=== PATIENT | male | born 1955 | race Caucasian/White ===

== ENCOUNTER 2020-05-31 11:24 | Emergency (ER) | payer MEDICARE, OTHER, SELFPAY ==
[2020-05-31] VITALS (15 sets, daily range): BP systolic 185; BP diastolic 127; PULSE 60–79; RESP 7–24; TEMP 36.9; O2SAT 93–99
--- NOTE | ~2020-05-31 | XR_ITS ---
EXAMINATION: XR ribs RT 2V w CXR 2V EXAM DATE: 05/31/2020 12:43 INDICATION: right anterior, lower rib pain, fall . TECHNIQUE: Frontal projection of the upper right ribs, frontal projection of the lower right ribs, ob lique projection of the right ribs, frontal chest x-ray(s) for interpretation. There is no prior tabitha dy for comparison. FINDINGS: There are no displaced acute right rib fractures identified. There is no soft tissue abno rmality seen. Patient has diffuse idiopathic skeletal hyperostosis (DISH). Sternotomy wires are present without findings to suggest sternal dehiscence. The cardiomediastinal si lhouette is prominent but magnified on this AP technique. No confluent consolidation, pneumothorax or pleural effusion suspected. IMPRESSION: No displaced right rib fractures. Reviewed, dictated and finalized at location A. 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
--- NOTE | 2020-05-31 12:29 | ED.FALL ---
HPI - Fall General Chief Complaint: Fall Stated Complaint: fall Time Seen by Provider: 05/31/20 11:40 Source: patient Mode of arrival: EMS Limitations: no limitations History of Present Illness HPI Narrative: This is a 65-year-old male that presents to the emergency department after a fall today with right-sided rib pain. Reports he tripped over his grandchildren's toys. Reports falling forward and landing on a tote. Reports since he has had pain on the right side of his ribs. Pain is worse with palpation and deep breathing. Denies hitting his head, loss of consciousness, weakness, numbness, prodromal symptoms, or other injuries. Related Data Home Medications Medication Instructions Recorded Confirmed amlodipine 5 mg PO DAILY 05/31/20 aspirin 81 mg PO DAILY 05/31/20 atorvastatin 40 mg PO DAILY 05/31/20 empagliflozin [Jardiance] 25 mg PO DAILY 05/31/20 furosemide [Lasix] 40 mg PO DAILY 05/31/20 gabapentin 300 mg PO BID 05/31/20 hydralazine 50 mg PO BID 05/31/20 meloxicam 15 mg PO DAILY 05/31/20 metformin 500 mg PO BID 05/31/20 metoprolol tartrate 100 mg PO Q12H 05/31/20 olmesartan 40 mg PO DAILY 05/31/20 sertraline 50 mg PO DAILY 05/31/20 Allergies Allergy/AdvReac Type Severity Reaction Status Date / Time Penicillins Allergy Itching Verified 05/31/20 11:34 HYDROCODONE BIT Allergy Dizziness Uncoded 05/31/20 11:34 Review of Systems Review of Systems: Narrative: CONSTITUTIONAL: Denies fever EYES: Denies visual changes CARDIOVASCULAR: Reports chest wall pain RESPIRATORY: Denies dyspnea. GASTROINTESTINAL: Denies vomiting MUSCULOSKELETAL: Denies back pain, joint pain, or myalgia. NEUROLOGIC: Denies headache, numbness, or weakness. All systems reviewed & are unremarkable except as noted in HPI and below PMFSH Past Medical History Medical History (Updated 05/31/20 @ 14:08 by Roma Frederick PA-C) History of cerebrovascular accident History of coronary artery disease History of diabetes mellitus History of hyperlipidemia History of hypertension Exam Narrative: Exam Narrative: GENERAL: Well-appearing, obese, and in no acute distress. HEAD: Normocephalic, atraumatic. EYES: PERRLA and EOMI. ENT: Nares clear, no rhinorrhea or epistaxis. Mucous membranes moist. Oropharynx without tonsillar hypertrophy exudate or other lesions. Bilateral TMs pearly guallpa non-bulging NECK: Supple. No adenopathy or masses. No midline cervical spine tenderness CHEST: Clear to auscultation. No respiratory distress. No wheezes rales or rhonchi. Tender to palpation of right anterior/lateral ribs HEART: Regular rate and rhythm. No murmur heard. Normal peripheral pulses. ABDOMEN: Soft, nontender, nondistended, normal active bowel sounds. BACK: No midline thoracic or lumbar spine tenderness EXTREMITIES: Normal range of motion. No edema or obvious deformity. SKIN: Warm, dry, no rash. NEURO: No focal deficits. Alert and oriented x3. Cranial nerves II through XII grossly intact PSYCH: Normal mood and affect Course Vital Signs Vital signs: Vital Signs Temperature 98.4 F 05/31/20 11:28 Pulse Rate 75 05/31/20 11:28 Respiratory Rate 18 05/31/20 11:28 Blood Pressure 185/127 H 05/31/20 11:28 Pulse Oximetry 97 05/31/20 11:28 Temperature 98.4 F 05/31/20 11:28 Pulse Rate 75 05/31/20 11:28 Respiratory Rate 18 05/31/20 11:28 Blood Pressure 185/127 H 05/31/20 11:28 Pulse Oximetry 97 05/31/20 11:28 MDM - Fall MDM Narrative Medical decision making narrative: Patient presents to the emergency department for right-sided rib pain after a ground-level fall today. He is neurologically intact. Oxygen saturation is remained normal on room air. No midline spinal tenderness. Right side rib/chest x-rays without acute findings. Patient was instructed on care of rib contusion. He is to follow-up with his primary care doctor. He was given warnings to return to the ER Imaging Data Radiologist's impression:
== END 2020-05-31 14:20 | disposition home or self-care (01) ==
PROVIDERS: Emergency Provider Emergency Medicine; PCP Internal Medicine
DX: S20.211A Contusion of right front wall of thorax, initial encounter (principal); I25.10 Atherosclerotic heart disease of native coronary artery without angina pectoris; E11.9 Type 2 diabetes mellitus without complications; Z79.84 Long term (current) use of oral hypoglycemic drugs; E78.5 Hyperlipidemia, unspecified; I10 Essential (primary) hypertension; W18.09XA Striking against other object with subsequent fall, initial encounter
CPT/HCPCS: 71046; 71100; 99283

== ENCOUNTER 2021-02-14 06:34 | Inpatient (IN) | payer MEDICARE, SELFPAY ==
[2021-02-14] VITALS (15 sets, daily range): BP systolic 128–200; BP diastolic 52–128; PULSE 65–101; RESP 17–36; TEMP 36.4–37.3; O2SAT 92–99; BMI 55.3
--- NOTE | ~2021-02-14 | XR_ITS ---
EXAMINATION: XR chest 1V portable DATE: 02/18/2021 06:24 INDICATION: Congestive heart failure TECHNIQUE: frontal view of the chest was obtained. COMPARISON: Chest radiograph dated 02/14/2021 FINDINGS: Cardiomegaly. No focal airspace opacities, pulmonary edema, pleural effusion or pneumothorax. Median sternotomy wires and mediastinal surgical clips are seen, likely from prior coronary artery bypass gr afting. IMPRESSION: 1. Cardiomegaly. No acute cardiopulmonary disease. Reviewed, dictated and finalized at location A.
--- NOTE | ~2021-02-14 | US_ITS ---
EXAMINATION: US renal BI DATE: 02/16/2021 14:16 INDICATION: Elevated creatinine TECHNIQUE: Multiple ultrasound grayscale images of the kidneys were obtained. COMPARISON: None. FINDINGS: The right kidney measures 10.2 x 5.6 x 6.9 cm. The left kidney measures 8.5 x 5.6 x 6.2 cm. The kidne ys demonstrate normal echogenicity. There is no hydronephrosis in either kidney. No stones identifie d. The bladder is normal. IMPRESSION: 1. Normal kidneys without hydronephrosis. Reviewed, dictated and finalized at location A.
--- NOTE | ~2021-02-14 | US_ITS ---
EXAMINATION: US venous doppler LE EXAM DATE: 02/14/2021 15:58 INDICATION: Leg edema. TECHNIQUE: Multiple grayscale, color flow and Doppler images of the lower extremity deep venous syste ms bilaterally were obtained and reviewed. There is no prior study for comparison. FINDINGS: Right side: The right common femoral, femoral and profunda veins demonstrate normal color flow, respi ratory variation, augmentation and compressibility. Compressibility, color flow confirmed within the right popliteal, posterior tibial, peroneal, and greater saphenous veins. Left side: The left common femoral, femoral and profunda veins demonstrate normal color flow, respira tory variation, augmentation and compressibility. Compressibility, color flow confirmed within the l eft popliteal, posterior tibial, peroneal, and greater saphenous veins. IMPRESSION: No lower extremity deep venous thrombosis bilaterally. Reviewed, dictated and finalized at location B.
--- NOTE | ~2021-02-14 | US_ITS ---
EXAMINATION: US arterial ankle brachial ind DATE: 02/23/2021 15:42 INDICATION: Right lower limb cellulitis. TECHNIQUE: Segmental pressures and plethysmographic and Doppler waveforms of the brachial and lower e xtremity arteries were obtained. COMPARISON: None. FINDINGS: Right and left brachial artery pressures of 114 mm Hg and 123 mm Hg, respectively, are concordant (no rmal difference <= 30 mmHg). The right ankle-brachial index (NATHALIE) is 0.93 (normal >= 0.9-1.0). The right great toe-brachial index (TBI) is 1.14 (normal >= 0.65). Arterial Doppler waveforms are biphasic in dorsalis pedis are not wel l detected in posterior tibial artery. The left NATHALIE could not be measured due to inability to cuff occlude the arteries. The left TBI is 1.5 6. Arterial Doppler waveforms are biphasic at the ankle. IMPRESSION: 1. Mildly decreased right NATHALIE, nondiagnostic left NATHALIE, and normal bilateral TBIs, consistent with art erial occlusive disease. Reviewed, dictated and finalized at location A. IMPRESSION: 1. Mildly decreased right NATHALIE, nondiagnostic left NAHTALIE, and normal bilateral TBI s, consistent with arterial occlusive disease.
--- NOTE | ~2021-02-14 | XR_ITS ---
XR chest 2V 02/14/2021 07:20 Indication: Dyspnea Procedure: AP and lateral views of the chest Comparison: 05/31/2020 Findings: Status post median sternotomy for CABG. Cardiomegaly with mild interstitial edema. Cannot e xclude superimposed pneumonia. No significant effusion. No pneumothorax. Impression: 1: Cardiomegaly with mild diffuse interstitial infiltrates, likely edema. Pneumonia less favored. Reviewed, dictated and finalized at location A. Impression: 1: Cardiomegaly with mild diffuse interstitial infiltrates, likely edema. Pneum onia less favored.
--- NOTE | 2021-02-14 06:40 | ECG_ITS ---
Measurements Intervals [place] Rate: 98 P: CT: 0 QRS: -38 QRSD: 100 T: 81 QT: 340 QTc: 436 Interpretive Statements ATRIAL FIBRILLATION LEFT AXIS DEVIATION INCOMPLETE RIGHT BUNDLE BRANCH BLOCK CANNOT RULE OUT SEPTAL INFARCT, AGE INDETERMINATE BORDERLINE ST-T WAVE ABNORMALITY- HIGH LATERAL LEADS BASELINE ARTIFACT- I, II, III, AVR, AVL, AVF, V1, V5-V6 ATYPICAL ECG Electronically Signed On 02-14-2021 8:07:29 CDT by Osmin Clark D.O.
[2021-02-14] MEDS: NITROGLYCERIN SL 0.4 MG TABLET SUBLINGUAL (06:54)
--- NOTE | 2021-02-14 06:54 | PC.NURSE ---
0654 administered 1 nitro sl bp 249/91 0659 administered 1 nitro sl bp 197/74 0704 administered 1 nitro sl
[2021-02-14 06:55] LABS: Basophils Percent Auto 0.2 % (0.2-1.2); Hematocrit 48.7 % (42.0-52.0); Immature Granulocyte Absolute 0.12 K/mm3 (0.00-0.031); Immature Granulocyte Percent A 0.6 % (0-0.5); Lymphocytes Absolute Auto 0.75 K/mm3 (0.9-3.2); Mean Corpuscular HGB Conc 30.8 g/dl (32-36); Mean Corpuscular Hemoglobin 26.9 pg (26-34); Mean Corpuscular Volume 87.3 fl (80-100); Mean Platelet Volume 11.1 fl (7.4-10.4); Monocytes Absolute Auto 0.3 K/mm3 (0.1-0.6); Monocytes Percent Auto 1.7 % (2.6-8.5); Neutrophils Absolute Auto 17.6 K/mm3 (1.3-6.7); Neutrophils Percent Auto 93.5 % (45.5-73.1); Platelet Count Result 151 k/mm3 (150-375); Red Blood Count 5.58 M/mm3 (4.6-6.20); Red Cell Distribution Width 17.1 % (11.5-14.5); White Blood Count 18.8 K/mm3 (4.5-10.0)
[2021-02-14 07:03] LABS: Anion Gap 9 mmol/L (8-16); Blood Urea Nitrogen 24 mg/dL (9-20); Carbon Dioxide 27 mmol/L (22-30); Chloride 103 mmol/L (98-107); Estimated Glomerular Filt Rate 43; Glucose 80 mg/dL (65-110); INR 1.2; Potassium 3.6 mmol/L (3.4-5.0); Prothrombin Time 14.7 Seconds (11.1-14.7); Sodium 139 mmol/L (137-145)
[2021-02-14 07:04] LABS: Partial Thromboplastin Time 38.7 SECONDS (22.3-36.8)
[2021-02-14 07:20] LABS: NT Pro B Type Natriuretic Pept 2010 pg/mL (5-100); Troponin I 0.051 ng/mL (0.000-0.034)
--- NOTE | 2021-02-14 07:27 | ED.SOB ---
HPI - SOB/Dyspnea General Chief Complaint: Shortness of Breath/Dyspnea Stated Complaint: DIFFICULTY BREATHING Time Seen by Provider: 02/14/21 07:15 History of Present Illness HPI Narrative: Patient is 65 years old white male with come at 4:00 AM with chest pain and severe shortness of breath. Pain was 10 out of 10, patient received nitroglycerin in the emergency room, currently 0 out of 10. 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 Patient morbidly obese, patient is fully vaccinated for COVID-19. Patient denying any fever, chills, nausea, vomiting. Patient had recent diagnosis of A. fib 1 week ago, started on Xarelto. Currently patient on aspirin. Related Data Home Medications Medication Instructions Recorded Confirmed amlodipine 5 mg PO DAILY 05/31/20 aspirin 81 mg PO DAILY 05/31/20 atorvastatin 40 mg PO DAILY 05/31/20 empagliflozin [Jardiance] 25 mg PO DAILY 05/31/20 furosemide [Lasix] 40 mg PO DAILY 05/31/20 gabapentin 300 mg PO BID 05/31/20 hydralazine 50 mg PO BID 05/31/20 meloxicam 15 mg PO DAILY 05/31/20 metformin 500 mg PO BID 05/31/20 metoprolol tartrate 100 mg PO Q12H 05/31/20 olmesartan 40 mg PO DAILY 05/31/20 sertraline 50 mg PO DAILY 05/31/20 amiodarone BID 02/14/21 potassium mg DAILY 02/14/21 rivaroxaban [Xarelto] 2.5 mg PO BID 02/14/21 Allergies Allergy/AdvReac Type Severity Reaction Status Date / Time Penicillins Allergy Itching Verified 02/14/21 07:45 hydrocodone AdvReac Dizziness Verified 02/14/21 09:12 Review of Systems Review of Systems: Narrative: CONSTITUTIONAL: Denies fever, chills, or sweats. EYES: Denies visual changes, redness, or discharge. ENT: Denies rhinorrhea, congestion, sore throat, or otalgia. CARDIOVASCULAR: Denies chest pain, palpitations, or edema. RESPIRATORY: Denies cough or dyspnea. GASTROINTESTINAL: Denies abdominal pain, nausea, vomiting, or diarrhea. GENITOURINARY: Denies dysuria or hematuria. SKIN: Denies rash or itching. MUSCULOSKELETAL: Denies back pain, joint pain, or myalgia. NEUROLOGIC: Denies headache, numbness, or weakness. PSYCHIATRIC: Denies anxiety or depression. PMFSH Past Medical History Medical History History of cerebrovascular accident History of coronary artery disease History of diabetes mellitus History of hyperlipidemia History of hypertension Social History Social History Gender identity (if verbalized by the patient): Male Exam Narrative: Exam Narrative: General appearance: Well-developed, well-nourished Skin: 3+ edema bilaterally, weeping blisters, right lower extremity looks more red, diffusely tender, and warm to touch more than the left 1. Can't exclude cellulitis at this time, versus chronic stasis dermatitis Head: Normocephalic, nontraumatic Eyes: Clear conjunctiva ENT: Oropharynx normal, ears normal, nose normal Neck: Supple, nontender Chest and respiratory: Airway patent, no respiratory distress, no accessory muscle use, wet rales at the bases bilaterally Heart: Regular rate/rhythm Abdomen: Soft, nontender, no organomegaly, quiet bowel sounds Vascular: Normal peripheral pulses, normal capillary refill. Musculoskeletal: Normal range of motion, nontender back Neurologic: Alert and oriented ?3, SPEECH SCIENTIST is normal as tested, no gross motor deficit Course Course Emergency Course: Stable, improving Consultations Consultation #1: Dr. Adams, hospitalist, Date: 02/14/21 Time: 07:58 Consultation #2: Rafael Vang
[2021-02-14] MEDS: FUROSEMIDE INJ 100 MG/10 ML VIAL 80 MG IV PUSH (07:36)
[2021-02-14] MEDS: NITROGLYCERIN OINTMENT 1 INCH DOSE TRANSDERM ×4 (07:39→23:44)
[2021-02-14 12:27] LABS: Troponin I 0.211 ng/mL (0.000-0.034)
--- NOTE | 2021-02-14 14:00 | PM.IMHP ---
H&P: HPI History of Present Illness Date/Time: 02/14/21 14:00 Chief Complaint: Shortness of breath. Narrative: This is a pleasant, chronically ill 65-year-old male with history of stroke, diabetes, hypertension, hyperlipidemia, coronary artery disease, sleep apnea, and paroxysmal atrial fibrillation who presented to the emergency department earlier today via EMS from home for evaluation of shortness of breath. He was diagnosed with atrial fibrillation about 1 week ago and was started on Xarelto with plans for an outpatient evaluation. He has been doing okay since that time however was getting up to go the bathroom around 04:00 when he developed severe, sudden shortness of breath as well as midsternal chest tightness and sweats. He was hypertensive and hypoxic on EMS arrival with a blood pressure as high as 238/125 and an SpO2 of 88% room air. EMS gave him a nebulizer as he was wheezing and he felt may be a bit better at that time. Chest x-ray today showed mild diffuse interstitial infiltrates felt to be secondary to pulmonary edema and he has pretty significant lower extremity edema with weeping though he states that is chronic and he has been diagnosed with lymphedema. His right leg looked quite a bit more red when compared to the left and was warm and he admits that is much more red and a bit tender when compared to baseline. He is not currently having any chest pain and shortness of breath is a bit better. The only complaint he has at this time is of discomfort of being on the stretcher. He denies fever, sinus congestion, rhinorrhea, otalgia, odynophagia, cough, pleuritic pain, palpitations, nausea, and vomiting. Review of Systems Review of Systems: Narrative: Twelve systems were reviewed with pertinent positives and negatives as per HPI. He is on insulin pump with a recent hemoglobin A1c of around 6.9%. He is fully vaccinated for COVID. No exposure to those positive for COVID-19 to his knowledge. He has right upper extremity weakness and some dexterity issues in his right hand from a previous stroke as well as balance issues. No recent falls. He ambulates with a cane. Except as documented, all other systems were reviewed and are negative. [facility] Past Medical History Medical History Cerebrovascular accident 2012.Residual right upper extremity weakness and balance issues. Coronary artery disease Status post CABG. Diabetic peripheral neuropathy Hyperlipidemia Hypertension Insulin dependent type 2 diabetes mellitus Lymphedema Morbid obesity Obstructive sleep apnea on CPAP Paroxysmal atrial fibrillation Surgical History Surgical History History of five vessel coronary artery bypass (2001) History of laparoscopic adjustable gastric banding (2009) History of repair of left rotator cuff History of total left knee replacement Family History Family History Father Acute myocardial infarction Congestive heart failure Diabetes mellitus Hypertension Grandparent Acute myocardial infarction Congestive heart failure Diabetes mellitus Hypertension Social History Social History (Updated 02/15/21 @ 19:02 by Savannah Wilson PA-C) Social History: Surrogate decision maker: Ariela Perkins, . Code status: Full code. Smoking status: Never smoker Second hand tobacco smoke exposure: No Alcohol intake: never Substance use: never Additional living arrangements comments: Resides in [place] with his . Ambulates with a cane. Additional occupation/education comments: Retired [employer]. Meds Home Medications and Allergies Home Medications Medication Instructions Recorded Confirmed Type amlodipine 5 mg PO DAILY 05/31/20 02/14/21 History aspirin 81 mg PO DAILY 05/31/20 02/14/21 History atorvastatin 40 mg PO DAILY 05/31/20 02/14/21 Histo
[2021-02-14] MEDS: ONDANSETRON INJ 4 MG/2 ML VIAL IV PUSH (14:05)
--- NOTE | 2021-02-14 16:34 | PC.NURSE ---
phlebotomy notified that ed staff unable to obtain labs
[2021-02-14 17:25] LABS: Alanine Aminotransferase 31 U/L (4-50); Albumin Level 3.2 g/dL (3.5-5.1); Alkaline Phosphatase 90 U/L (38-126); Aspartate Amino Transferase 47 U/L (17-59); Bilirubin,Total 1.5 mg/dL (0.2-1.3)
[2021-02-14 17:32] LABS: NT Pro B Type Natriuretic Pept 9420 pg/mL (5-100); Troponin I 0.295 ng/mL (0.000-0.034)
--- NOTE | 2021-02-14 19:16 | PC.NURSE ---
1909 Report received from SPENCER Naylor.
--- NOTE | 2021-02-14 19:57 | ADMGEN ---
This patient, Carlton Perkins, was admitted to IMU Room 209-01 on 02/14/21 at 1945. Patient/family oriented to hospital policies and general routines including ID bracelet, bed and alarms, visiting hours, pain management, procedures, bathroom and other care routines, personal items, smoking policy, room service/diet, and visiting hours. Information on how to activate the Rapid Response Team has been discussed. Patient/Family are encouraged to report perceived risks to care and to ask questions if they do not understand what they are told or what they should do.
[2021-02-14 20:20] LABS: Glucose Point of Care 132 mg/dl (65-105)
[2021-02-14] MEDS: FUROSEMIDE INJ 40 MG/4 ML VIAL IV PUSH (22:16)
[2021-02-15] VITALS (17 sets, daily range): BP systolic 146–176; BP diastolic 61–95; PULSE 65–99; RESP 18–26; TEMP 36.6–37.6; O2SAT 92–99
--- NOTE | 2021-02-15 00:59 | ECHO_ITS ---
Patient Info Name: Carlton Perkins Age: 65 years : 1955 Gender: Male Ht: 71 in Wt: 396 lbs BSA: 3.10 m2 HR: 98 bpm BP: 161 / 80 mmHg Heart Rhythm: Atrial Flutter Technical Quality: Poor Exam Date: 02/15/2021 2:20 PM Exam Location: [facility] Pulmonary Exam Room: 209 Patient Status: Inpatient Admit Date: 02/14/2021 Staff Ordering Physician: Savannah Wilson PA-C Cushion Cover Inspector: Sammie Gant RDCS Attending Provider: Griffin Adams MD Referring Physician: Katie BURT; Exam Type: CA echo dop color flow w con Study Info Indications - pulmonary congestion afib htn cad cabg Complete two-dimensional, color flow and Doppler transthoracic echocardiogram is performed with contrast to opacify the left ventricle and to improve the deliniation of the left ventricle endocardial borders. Contrast/Agitated Saline Contrast/Ag. Saline: Definity Amount: 2.00 ml Existing IV Access: Yes IV Access Condition: patent with no signs of infiltration Reason for Poor Study: patient body habitus Summary 1. Grossly normal left ventricular chamber size, and systolic function with no regional wall motion abnormalities with an estimated ejection fraction of 60-65%. Diastolic function indeterminant. Moderate LVH. 2. Left atrial chamber dimension is mildly enlarged. 3. No significant valve disease. 4. Atrial flutter. 5. Technically difficult study, even with definity echo contrast. Left Ventricle Left ventricular chamber dimension is moderately enlarged. Left ventricular systolic function is normal, estimated at 60-65%. There is mildly increased left ventricular wall thickness. Left ventricular septal wall motion is normal. The left ventricular diastolic function is indeterminate. Grossly normal left ventricular chamber size, and systolic function with no regional wall motion abnormalities with an estimated ejection fraction of 60-65%. Diastolic function indeterminant. Moderate LVH. Right Ventricle Right ventricular chamber dimension is normal. Right ventricular systolic function is normal. Left Atria Left atrial chamber dimension is mildly enlarged. Right Atria Right atrial chamber dimension is normal. Aortic Valve The aortic valve is trileaflet. There is moderate aortic valve sclerosis. There is no aortic valve stenosis. There is no aortic valve regurgitation. Pulmonic Valve The pulmonic valve is normal. There is no pulmonic valve stenosis. There is no pulmonic regurgitation. Mitral Valve The mitral valve has normal leaflets. There is no mitral valve stenosis. There is no mitral valve regurgitation. Tricuspid Valve The tricuspid valve leaflets are normal. There is no significant tricuspid valve stenosis. There is trace tricuspid valve regurgitation. No pulmonary hypertension, estimated pulmonary arterial systolic pressure is Empty. Pericardium/Pleural The pericardium appears normal. There is no pericardial effusion. Inferior Vena Cava Normal inferior vena cava with >50% collapse upon inspiration consistent with Empty right atrial pressure, Empty. Aorta The aortic root size at the sinus of Valsalva is normal. The prox ascending aorta size is normal. Left Ventricular Outflow Tract Name Value Normal
--- NOTE | 2021-02-15 04:54 | ECG_ITS ---
Measurements Intervals [place] Rate: 98 P: [place]: 0 QRS: -34 QRSD: 125 T: 92 QT: 378 QTc: 483 Interpretive Statements ECTOPIC ATRIAL RHYTHM ATRIAL COUPLET LEFT AXIS DEVIATION INCOMPLETE RIGHT BUNDLE BRANCH BLOCK CONSIDER ANTERIOR INFARCT, AGE INDETERMINATE BORDERLINE ST-T WAVE ABNORMALITY- HIGH LATERAL LEADS BASELINE ARTIFACT- I, II, III, AVR, AVL, AVF, V3 ABNORMAL ECG Electronically Signed On 02-15-2021 6:32:16 CDT by Osmin Clark D.O.
[2021-02-15 05:10] LABS: Hematocrit 40.7 % (42.0-52.0); Hemoglobin 12.6 g/dL (14.0-18.0); Immature Platelet Fraction Pct 5.9 % (0.9-11.2); Mean Corpuscular Volume 87.3 fl (80-100); Mean Platelet Volume 11.6 fl (7.4-10.4); Platelet Count Result 105 k/mm3 (150-375); Red Blood Count 4.66 M/mm3 (4.6-6.20); Red Cell Distribution Width 17.4 % (11.5-14.5)
[2021-02-15 05:20] LABS: Alanine Aminotransferase 28 U/L (4-50); Albumin Level 3.1 g/dL (3.5-5.1); Alkaline Phosphatase 98 U/L (38-126); Anion Gap 5 mmol/L (8-16); Aspartate Amino Transferase 36 U/L (17-59); Bilirubin,Total 1.5 mg/dL (0.2-1.3); Blood Urea Nitrogen 30 mg/dL (9-20); Carbon Dioxide 27 mmol/L (22-30); Chloride 101 mmol/L (98-107); Estimated CRCL calculation 60 ml/min; Estimated Glomerular Filt Rate 38; Glucose 112 mg/dL (65-110); Magnesium 1.7 mg/dL (1.6-2.3); Potassium 3.8 mmol/L (3.4-5.0); Sodium 133 mmol/L (137-145)
[2021-02-15 05:55] LABS: Hemoglobin A1C 6.6 % (<5.7)
[2021-02-15] MEDS: ATORVASTATIN 40 MG TABLET PO (08:20)
[2021-02-15] MEDS: amLODIPine BESYLATE 5 MG TABLET PO (08:20)
[2021-02-15] MEDS: CHOLECALCIFEROL 1,000 UNITS TABLET 2000 UNITS PO (08:20)
[2021-02-15] MEDS: METOPROLOL TARTRATE 50 MG TAB 100 MG PO ×2 (08:20→21:30)
[2021-02-15] MEDS: ASPIRIN 81 MG ENTERIC TABLET PO (08:20)
[2021-02-15] MEDS: MELOXICAM 7.5 MG TABLET 15 MG PO (08:20)
[2021-02-15] MEDS: FUROSEMIDE INJ 40 MG/4 ML VIAL IV PUSH ×2 (08:20→21:30)
[2021-02-15] MEDS: GABAPENTIN 300 MG CAPSULE PO ×2 (08:21→18:25)
[2021-02-15] MEDS: SERTRALINE HCL 50 MG TABLET PO (08:21)
[2021-02-15] MEDS: AMIODARONE HCL 200 MG TABLET PO ×2 (08:21→18:24)
[2021-02-15] MEDS: PANTOPRAZOLE 40 MG TABLET PO ×2 (08:21→18:25)
[2021-02-15] MEDS: hydrALAZINE HCL 50 MG TABLET PO ×2 (08:21→18:24)
[2021-02-15 09:10] LABS: Glucose Point of Care 123 mg/dl (65-105)
[2021-02-15 13:23] LABS: Glucose Point of Care 279 mg/dl (65-105)
--- NOTE | 2021-02-15 14:32 | PM.IMPN ---
Progress Note: A&P Assessment and Plan (1) Pulmonary congestion: Code(s): R09.89 - Other specified symptoms and signs involving the circulatory and respiratory systems Status: Acute Assessment and Plan: improving (2) Atrial fibrillation: Qualifiers: Atrial fibrillation type: unspecified Qualified Code(s): I48.91 - Unspecified atrial fibrillation Code(s): I48.91 - Unspecified atrial fibrillation Status: Acute (3) Non-STEMI (non-ST elevated myocardial infarction): Code(s): I21.4 - Non-ST elevation (NSTEMI) myocardial infarction Status: Acute Assessment and Plan: cardiology following (4) Cellulitis of right leg: Code(s): L03.115 - Cellulitis of right lower limb Status: Acute Assessment and Plan: continue IV antibiotics continue wound care (5) Morbid obesity: Code(s): E66.01 - Morbid (severe) obesity due to excess calories Status: Acute Assessment and Plan: greater than 5 minutes dietary counseling given to patient today (6) Lymphedema: Code(s): I89.0 - Lymphedema, not elsewhere classified Status: Acute Assessment and Plan: continue rapid (7) Obstructive sleep apnea on CPAP: Code(s): G47.33 - Obstructive sleep apnea (adult) (pediatric); Z99.89 - Dependence on other enabling machines and devices Status: Acute Assessment and Plan: will need outpatient follow-up study (8) Hypertension: Code(s): I10 - Essential (primary) hypertension Status: Acute Assessment and Plan: adjusting BP meds (9) Hyperlipidemia: Code(s): E78.5 - Hyperlipidemia, unspecified Status: Acute Assessment and Plan: continue statin (10) Insulin dependent type 2 diabetes mellitus: Code(s): E11.9 - Type 2 diabetes mellitus without complications; Z79.4 - alf (current) use of insulin Status: Acute Assessment and Plan: patient with insulin pump will use her own machine during hospitalization (11) Coronary artery disease: Code(s): I25.10 - Atherosclerotic heart disease of [place] coronary artery without angina pectoris Status: Acute Assessment and Plan: NSTEMI cardiology has been consulted Subjective Date/time seen: 02/15/21 14:32 patient doing okay appears to have limited insight into his overall health. Previous history of lap banding although remains morbidly obese. He is diabetic and has insulin pump lumbar last hemoglobin A1c was 6.6. His right lower extremity continues to have pain and swelling and despite patient's poor overall health, he iis surprised that he has had a NSTEMI. Exam Narrative: GEN: NAD, AAOx3, cooperative, morbid obesity HEENT: NCAT, MMM, EOMI Neck: no JVD Heart: S1S2 IRR Lungs: CTA B/l Abd: soft, NT, ND, bowel sounds normoactive Ext: moves all, no cyanosis, no clubbing, right lower extremity tender to palpation erythematous and edematous Neuro: normal cognition, moves all extremities equally, gait not assessed Psych: mood reduced, affect congruent Objective Data Vital Signs Vital Signs: Vital Signs - 24 hr 02/14/21 14:57 02/14/21 17:45 02/14/21 18:51 Temperature Pulse Rate 81 65 82 Respiratory Rate 17 20 Blood Pressure 132/52 L 128/97 H Pulse Oximetry 96 92 97 02/14/21 18:54 02/14/21 19:45 02/14/21 20:00 Temperature 97.8 F 97.8 F Pulse Rate 84 92 Respiratory Rate 20 Blood Pressure 146/87 H 152/72 H Pulse Oximetry 98 02/14/21 22:00 02/14/21 23:55 02/15/21 00:00 Temperature 97.6 F Pulse Rate 81 84 98 Respiratory Rate 20 20 Blood Pressure 147/83 H Pulse Oximetry 92 92 02/15/21 02:00 02/15/21 04:00 02/15/21 04:53 Temperature 99.7 F H Pulse Rate 95 89 98 Respiratory Rate 20 Blood Pressure 161/80 H Pulse Oximetry 94 02/15/21 06:00 02/15/21 08:00 02/15/21 08:20 Temperature 98.9 F Pulse Rate 89 99 98 Respiratory Rate 20 [place]
[2021-02-15] MEDS: PERFLUTREN LIPID MICROSPHERES 1.5 ML VIAL DILUTED TO 10 ML TOTAL VOLUME IV PUSH (15:00)
--- NOTE | 2021-02-15 15:55 | PM.CNCAR ---
Assessment and Plan Assessment and plan (1) Elevated troponin: Code(s): R77.8 - Other specified abnormalities of plasma proteins Status: Acute Assessment and Plan: Patient has developed elevated troponins which are of concern for ACS. However, my feeling is he has had gradual worsening of CHF and this is not an ACS event. There are no ischemic EKG changes. I think the troponin spill was related to his hypertension, tachycardia, and hypoxemia. (2) Acute on chronic diastolic CHF (congestive heart failure): Code(s): I50.33 - Acute on chronic diastolic (congestive) heart failure Status: Acute Assessment and Plan: Patient has severe volume overload and moderate CHF on his chest x-ray. Recommend we treat his blood pressure and continue IV diuretics. Echo pending 1800 cc fluid restriction (3) Atrial fibrillation: Qualifiers: Atrial fibrillation type: unspecified Qualified Code(s): I48.91 - Unspecified atrial fibrillation Code(s): I48.91 - Unspecified atrial fibrillation Status: Acute Assessment and Plan: Wean set onset of atrial fib /flutter, rate reasonable in the 90s. Anticoagulated with Xarelto. Eventual cardioversion planned. However he has only been on Xarelto and amiodarone for 1 week and will be preferable for him to be on it longer prior to a cardioversion. If he is not doing well we can consider a MARTIN guided cardioversion prior to discharge. Otherwise stick with the plan made by Dr. Wallace, to re-evaluate and plan a cardioversion in the future. (4) Hypertension: Code(s): I10 - Essential (primary) hypertension Status: Acute Assessment and Plan: Not at goal. Already taking metoprolol, amlodipine, and hydralazine at home. Also taking olmesartan, furosemide 40 mg qd (not on this home med list) Resume olmesartan 40 mg qd Consider adding spironolactone and following K+. (5) Lymphedema: Code(s): I89.0 - Lymphedema, not elsewhere classified Status: Acute Assessment and Plan: Chronic lymphedema, worsened recently. (6) Cellulitis of right leg: Code(s): L03.115 - Cellulitis of right lower limb Status: Acute Assessment and Plan: Woke up with shaking and chills, has a very high white count. Blood cultures are pending. Cellulitis is being treated. (7) Coronary artery disease: Code(s): I25.10 - Atherosclerotic heart disease of [place] coronary artery without angina pectoris Status: Acute Assessment and Plan: CABG X 2001, all arterial grafts. All grafts patent by cath 2016. (8) Morbid obesity: Code(s): E66.01 - Morbid (severe) obesity due to excess calories Status: Acute (9) Obstructive sleep apnea on CPAP: Code(s): G47.33 - Obstructive sleep apnea (adult) (pediatric); Z99.89 - Dependence on other enabling machines and devices Status: Acute Assessment and Plan: Compliant (10) CKD stage 3 due to type 2 diabetes mellitus: Code(s): E11.22 - Type 2 diabetes mellitus with diabetic chronic kidney disease; N18.30 - Chronic kidney disease, stage 3 unspecified Status: Acute Assessment and Plan: Discontinue meloxicam Daily BMP History of Present Illness History of Present Illness Consult date/time: 02/15/21 15:55 Reason For Visit: chf,leg edema,leukocytosis,atrial fibrillation,aubrey Narrative: Date Of Service 02/15/2021 Mr. Carlton Perkins is a 65-year-old male whom we were asked to see at the request of the hospitalist for advice and opinion regarding his CHF and elevated troponins, in consultation. He has a history of paroxysmal atrial fibrillation diagnosed rece
[2021-02-15 17:12] LABS: Glucose Point of Care 298 mg/dl (65-105)
[2021-02-15] MEDS: RIVAROXABAN 20 MG TABLET PO (18:25)
[2021-02-15 20:19] LABS: Glucose Point of Care 272 mg/dl (65-105)
[2021-02-15] MEDS: OLMESARTAN MEDOXOMIL 20 MG TABLET 40 MG PO (22:15)
[2021-02-16] VITALS (20 sets, daily range): BP systolic 113–148; BP diastolic 46–76; PULSE 55–89; RESP 16–20; TEMP 35.8–36.9; O2SAT 93–98
[2021-02-16 05:19] LABS: Basophils Percent Auto 0.1 % (0.2-1.2); Hematocrit 37.5 % (42.0-52.0); Hemoglobin 11.7 g/dL (14.0-18.0); Immature Granulocyte Absolute 0.15 K/mm3 (0.00-0.031); Immature Granulocyte Percent A 0.8 % (0-0.5); Lymphocytes Absolute Auto 0.88 K/mm3 (0.9-3.2); Lymphocytes Percent Auto 4.7 % (18.3-44.2); Mean Corpuscular HGB Conc 31.2 g/dl (32-36); Mean Corpuscular Hemoglobin 26.8 pg (26-34); Mean Platelet Volume 11.8 fl (7.4-10.4); Monocytes Absolute Auto 1.2 K/mm3 (0.1-0.6); Monocytes Percent Auto 6.6 % (2.6-8.5); Neutrophils Absolute Auto 16.3 K/mm3 (1.3-6.7); Neutrophils Percent Auto 87.8 % (45.5-73.1); Platelet Count Result 131 k/mm3 (150-375); Red Blood Count 4.36 M/mm3 (4.6-6.20); Red Cell Distribution Width 17.3 % (11.5-14.5); White Blood Count 18.5 K/mm3 (4.5-10.0)
[2021-02-16 05:35] LABS: Anion Gap 6 mmol/L (8-16); Blood Urea Nitrogen 37 mg/dL (9-20); Carbon Dioxide 28 mmol/L (22-30); Chloride 98 mmol/L (98-107); Estimated CRCL calculation 55 ml/min; Estimated Glomerular Filt Rate 34; Glucose 44 mg/dL (65-110); Potassium 3.4 mmol/L (3.4-5.0); Sodium 132 mmol/L (137-145)
[2021-02-16] MEDS: GLUCOSE ORAL GEL 15 GM OF GLUCSE IN 37.5 GM TUBE PO ×2 (05:43→06:07)
[2021-02-16 07:02] LABS: Glucose Point of Care 95 mg/dl (65-105)
[2021-02-16 07:02] LABS: Glucose Point of Care 55 mg/dl (65-105)
--- NOTE | 2021-02-16 07:57 | PM.IMPN ---
Progress Note: A&P Assessment and Plan (1) Pulmonary congestion: Code(s): R09.89 - Other specified symptoms and signs involving the circulatory and respiratory systems Status: Acute Assessment and Plan: 2/2 CHF; improving (2) Atrial fibrillation: Qualifiers: Atrial fibrillation type: unspecified Qualified Code(s): I48.91 - Unspecified atrial fibrillation Code(s): I48.91 - Unspecified atrial fibrillation Status: Acute Assessment and Plan: Cardiology managing Continue antiarrhythmic and OAC (3) Cellulitis of right leg: Code(s): L03.115 - Cellulitis of right lower limb Status: Acute Assessment and Plan: imipenem and vancomycin per antibiotic stewardship recommendations continue IV antibiotics continue wound care (4) Morbid obesity: Code(s): E66.01 - Morbid (severe) obesity due to excess calories Status: Acute Assessment and Plan: greater than 5 minutes dietary counseling given bariatric bed (5) Lymphedema: Code(s): I89.0 - Lymphedema, not elsewhere classified Status: Acute Assessment and Plan: chronic (6) Obstructive sleep apnea on CPAP: Code(s): G47.33 - Obstructive sleep apnea (adult) (pediatric); Z99.89 - Dependence on other enabling machines and devices Status: Acute Assessment and Plan: cont CPAP while in hospital (7) Hypertension: Code(s): I10 - Essential (primary) hypertension Status: Acute Assessment and Plan: adjusting BP meds (8) Hyperlipidemia: Code(s): E78.5 - Hyperlipidemia, unspecified Status: Acute Assessment and Plan: continue statin (9) Insulin dependent type 2 diabetes mellitus: Code(s): E11.9 - Type 2 diabetes mellitus without complications; 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 Status: Acute Assessment and Plan: patient with insulin pump will use his own machine during hospitalization cont accuchecks am hypoglycemia noted on labs, consult dietary, care plan reviewed w RN (10) Coronary artery disease: Code(s): I25.10 - Atherosclerotic heart disease of [place] coronary artery without angina pectoris Status: Acute Assessment and Plan: cont medical management ACS ruled out cardiology recs appreciated (11) VALENCIA (acute kidney injury): Code(s): N17.9 - Acute kidney failure, unspecified Status: Acute Assessment and Plan: VALENCIA on CKD 3 consult nephrology Additional Plan VTEP w Eliquis anticipate dc when cellulitis improved, euvolemic, and afib stable Subjective Date/time seen: 02/16/21 07:57 Patient feeling better continues on antibiotics antiarrhythmic. is bedside plan care discussed at with them all questions answered Exam Narrative: GEN: NAD, morbidly obese, cooperative HEENT: NCAT, MMM, EOMI Neck: nontender supple Heart: IRR, midline surgical scar Lungs: bibasilar crackles Abd: soft, NT, ND, bowel sounds normoactive, globose Ext: moves all, no cyanosis, no clubbing, 3+ pitting edema, right lower extremity edematous, erythematous, tender to palpation, with weeping lower extremity wounds 2/2 to edema Neuro: slow cognition, moves all extremities equally, unsteady gait Psych: mood reduced, affect congruent flattened, poor eye contact Objective Data Vital Signs Vital Signs: Vital Signs - 24 hr 02/15/21 08:00 02/15/21 08:20 02/15/21 08:21 Temperature 98.9 F Pulse Rate 99 98 98 Respiratory Rate 20 Blood Pressure 146/61 H Pulse Oximetry 96 02/15/21 10:00 02/15/21 12:00 02/15/21 14:00 Temperature 98.7 F Pulse Rate 88 91 77 Respiratory Rate 26 H Blood Pressure 176/91 H Pulse Oximetry 96 02/15/21 16:00 02/15/21 18:00 02/15/21 18:24 Temperature 98.1 F Pulse Rate 88 90 77 Respiratory Rate 22 H Blood Pressure 151/95 H Pulse Oximetry 98 02/15/21 20:00 02/15/21 21:30 02/15/21 22
[2021-02-16] MEDS: hydrALAZINE HCL 50 MG TABLET PO ×3 (09:12→18:11)
[2021-02-16] MEDS: RIVAROXABAN 20 MG TABLET PO (09:12)
[2021-02-16] MEDS: SERTRALINE HCL 50 MG TABLET PO (09:12)
[2021-02-16] MEDS: METOPROLOL TARTRATE 50 MG TAB 100 MG PO ×2 (09:12→20:29)
[2021-02-16] MEDS: GABAPENTIN 300 MG CAPSULE PO ×2 (09:13→18:10)
[2021-02-16] MEDS: PANTOPRAZOLE 40 MG TABLET PO ×2 (09:13→18:11)
[2021-02-16] MEDS: FUROSEMIDE INJ 40 MG/4 ML VIAL IV PUSH ×2 (09:13→20:29)
[2021-02-16] MEDS: AMIODARONE HCL 200 MG TABLET PO ×2 (09:13→18:10)
[2021-02-16] MEDS: OLMESARTAN MEDOXOMIL 20 MG TABLET 40 MG PO (09:13)
[2021-02-16] MEDS: ASPIRIN 81 MG ENTERIC TABLET PO (09:13)
[2021-02-16] MEDS: NIFEdipine 30 MG TAB.ER.24 PO (09:13)
[2021-02-16] MEDS: CHOLECALCIFEROL 1,000 UNITS TABLET 2000 UNITS PO (09:13)
[2021-02-16] MEDS: ATORVASTATIN 40 MG TABLET PO (09:13)
--- NOTE | 2021-02-16 10:24 | PM.CNNEP ---
Assessment and Plan Assessment and plan (1) VALENCIA (acute kidney injury): Code(s): N17.9 - Acute kidney failure, unspecified Status: Acute Assessment and Plan: the patient has acute kidney injury. Is unclear what his baseline is. We can try to get some records from his primary care doctor. If he did have some chronic kidney disease and must not be very bad because he was on metformin and meloxicam. The patient has cellulitis which can cause VALENCIA. He had significant hypertension when he came in. He says that his blood pressure is usually under better control. Hypertensive nephropathy is always a possibility under that circumstance. However the blood pressure was not all that high. I do not think the blood pressure was brought down too quickly or too low. Generally 140-160 is a reasonable systolic under the circumstances. There are other causes of acute kidney injury as well including obstruction, vascular disease etc. I think that glomerulonephritis and interstitial nephritis would be unusual in this clinical scenario. Will check CPK, urine electrolytes, renal ultrasound, urinalysis, and go from there. He is on diuretics 40 mg Q 12. His swelling is significant and his cellulitis is present so I think we should give him 1 more day of diuretics and reassess tomorrow. I would like to stop the nifedipine because this makes swelling worse which makes the treatment of the cellulitis more difficult. (2) Cellulitis of leg: Qualifiers: Laterality: right Qualified Code(s): L03.115 - Cellulitis of right lower limb Code(s): L03.119 - Cellulitis of unspecified part of limb Status: Acute Assessment and Plan: He is on vancomycin and Primaxin. He is afebrile. White count is still elevated. (3) Lymphedema: Code(s): I89.0 - Lymphedema, not elsewhere classified Status: Acute Assessment and Plan: Continue local therapy and diuretics (4) Paroxysmal atrial fibrillation: Code(s): I48.0 - Paroxysmal atrial fibrillation Status: Acute Assessment and Plan: Heart rate doing well in the 70s and 80s (5) Hypertension: Code(s): I10 - Essential (primary) hypertension Status: Acute Assessment and Plan: blood pressure is target at 140-160 for now (6) Coronary artery disease: Code(s): I25.10 - Atherosclerotic heart disease of [place] coronary artery without angina pectoris Status: Acute Assessment and Plan: no chest pain or shortness of breath. Cardiology on the case. 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 Status: Acute Assessment and Plan: On Accu-Cheks and sliding-scale insulin (8) Hyperlipidemia: Code(s): E78.5 - Hyperlipidemia, unspecified Status: Acute Assessment and Plan: on atorvastatin History of Present Illness Reason for Consult Consult date: 02/16/21 Chief Complaint Chief complaint: chf,leg edema,leukocytosis,atrial fibrillation,aubrey History of Present Illness Narrative: Carlton is a very pleasant 65-year-old gentleman who has multiple medical problems including hypertension, diabetes, coronary disease status post bypass in 2001, myocardial infarction back then but no recent coronary issues, stroke in 2012, lymphedema, morbid obesity, sleep apnea on a CPAP mask, paroxysmal atrial fibrillation. The patient came in because he had gradually worsening swelling and shortness of breath over the last week or 2. He was seen in the emergency room found to be volume overloaded. He was also felt to have cellulitis in the right lower extremity. He was given antibiotics and diuretics. His blood pressure was also high so medicines were adjusted. On admission it ran between 180 and 200 and this is gradually come down to about 140-160. The p
[2021-02-16 11:36] LABS: Creatine Kinase 72 U/L (55-170)
[2021-02-16 11:46] LABS: Glucose Point of Care 146 mg/dl (65-105)
--- NOTE | 2021-02-16 12:15 | PM.PNCARD ---
Progress Note: A&P Assessment and Plan (1) Acute on chronic diastolic CHF (congestive heart failure): Code(s): I50.33 - Acute on chronic diastolic (congestive) heart failure Status: Acute Assessment and Plan: Patient has severe volume overload and moderate CHF on his chest x-ray. Recommend we treat his blood pressure and continue IV diuretics. Not diuresing much. 1800 cc fluid restriction (2) Elevated troponin: Code(s): R77.8 - Other specified abnormalities of plasma proteins Status: Acute Assessment and Plan: Patient has developed elevated troponins but doubt ACS. However, my feeling is he has had gradual worsening of CHF and this is not an ACS event. There are no ischemic EKG changes. I think the troponin spill was related to his hypertension, tachycardia, and hypoxemia. (3) Atrial fibrillation: Qualifiers: Atrial fibrillation type: unspecified Qualified Code(s): I48.91 - Unspecified atrial fibrillation Code(s): I48.91 - Unspecified atrial fibrillation Status: Acute Assessment and Plan: Recent onset of atrial fib /flutter, rate controlled w/ po amiodarone.. Anticoagulated with Xarelto. Eventual cardioversion planned. However he has only been on Xarelto and amiodarone for 1 week and will be preferable for him to be on it longer prior to a cardioversion. If he is not doing well we can consider a MARTIN guided cardioversion prior to discharge. Otherwise stick with the plan made by Dr. Wallace, to re-evaluate and plan a cardioversion in the future. (4) Hypertension: Code(s): I10 - Essential (primary) hypertension Status: Acute Assessment and Plan: Not at goal. Already taking metoprolol, amlodipine, hydralazine, olmesartan, furosemide 40 mg qd (not on this home med list) Improved though not at goal. (5) Lymphedema: Code(s): I89.0 - Lymphedema, not elsewhere classified Status: Acute Assessment and Plan: Chronic lymphedema, worsened recently. (6) Cellulitis of right leg: Code(s): L03.115 - Cellulitis of right lower limb Status: Acute Assessment and Plan: Woke up with shaking and chills, has a very high white count. Blood cultures negative so far. On antibiotics. (7) Coronary artery disease: Code(s): I25.10 - Atherosclerotic heart disease of [place] coronary artery without angina pectoris Status: Acute Assessment and Plan: CABG X 2001, all arterial grafts. All grafts patent by cath 2016. (8) Morbid obesity: Code(s): E66.01 - Morbid (severe) obesity due to excess calories Status: Acute (9) Obstructive sleep apnea on CPAP: Code(s): G47.33 - Obstructive sleep apnea (adult) (pediatric); Z99.89 - Dependence on other enabling machines and devices Status: Acute Assessment and Plan: Compliant (10) CKD stage 3 due to type 2 diabetes mellitus: Code(s): E11.22 - Type 2 diabetes mellitus with diabetic chronic kidney disease; N18.30 - Chronic kidney disease, stage 3 unspecified Status: Acute Assessment and Plan: [place]. Discontinue meloxicam Daily BMP Subjective Date/time seen: 02/16/21 12:15 Interval history: Follow-up acute on chronic diastolic heart failure, recent onset atrial flutter, elevated troponins, hypertension. Also has lymphedema and cellulitis. Usually followed by Dr. Shola Wallace at [facility] and was found to have new onset of atrial flutter 1 week ago on a routine office visit. He was started on Eliquis and amiodarone at that time. Admitted with chills, SOB and acute on chronic diastolic CHF. Date of service: 02/16/2021: Feeling better, mitch
[2021-02-16 16:34] LABS: Glucose Point of Care 116 mg/dl (65-105)
[2021-02-16 20:42] LABS: Glucose Point of Care 208 mg/dl (65-105)
[2021-02-16 23:35] LABS: Vancomycin Trough 20.7 ug/mL (10.0-20.0)
[2021-02-17] VITALS (19 sets, daily range): BP systolic 101–173; BP diastolic 42–76; PULSE 64–90; RESP 18–20; TEMP 36.1–36.9; O2SAT 93–100
[2021-02-17 06:04] LABS: Albumin Level 2.7 g/dL (3.5-5.1); Anion Gap 9 mmol/L (8-16); Blood Urea Nitrogen 40 mg/dL (9-20); Calcium 7.6 mg/dL (8.4-10.2); Carbon Dioxide 27 mmol/L (22-30); Chloride 95 mmol/L (98-107); Estimated CRCL calculation 55 ml/min; Estimated Glomerular Filt Rate 34; Glucose 80 mg/dL (65-110); Phosphorus 4.3 mg/dL (2.5-4.5); Potassium 3.4 mmol/L (3.4-5.0); Sodium 131 mmol/L (137-145)
[2021-02-17 08:58] LABS: Glucose Point of Care 72 mg/dl (65-105)
[2021-02-17] MEDS: AMIODARONE HCL 200 MG TABLET PO ×2 (09:16→18:04)
[2021-02-17] MEDS: GABAPENTIN 300 MG CAPSULE PO ×2 (09:17→18:04)
[2021-02-17] MEDS: ATORVASTATIN 40 MG TABLET PO (09:17)
[2021-02-17] MEDS: RIVAROXABAN 20 MG TABLET PO (09:17)
[2021-02-17] MEDS: METOPROLOL TARTRATE 50 MG TAB 100 MG PO ×2 (09:17→21:28)
[2021-02-17] MEDS: PANTOPRAZOLE 40 MG TABLET PO ×2 (09:17→18:04)
[2021-02-17] MEDS: OLMESARTAN MEDOXOMIL 20 MG TABLET 40 MG PO (09:17)
[2021-02-17] MEDS: ASPIRIN 81 MG ENTERIC TABLET PO (09:17)
[2021-02-17] MEDS: SERTRALINE HCL 50 MG TABLET PO (09:17)
[2021-02-17] MEDS: CHOLECALCIFEROL 1,000 UNITS TABLET 2000 UNITS PO (09:17)
[2021-02-17] MEDS: hydrALAZINE HCL 50 MG TABLET PO ×3 (09:18→18:04)
[2021-02-17] MEDS: FUROSEMIDE INJ 40 MG/4 ML VIAL IV PUSH (09:18)
--- NOTE | 2021-02-17 09:47 | ECG_ITS ---
Measurements Intervals [place] Rate: 76 P: 74 MO: 199 QRS: -26 QRSD: 116 T: 63 QT: 429 QTc: 485 Interpretive Statements SINUS RHYTHM INCOMPLETE RIGHT BUNDLE BRANCH BLOCK POOR R WAVE PROGRESSION, CONSIDER ANTERIOR INFARCT BORDERLINE ST-T WAVE ABNORMALITY- HIGH LATERAL LEADS ABNORMAL ECG Electronically Signed On 02-17-2021 10:31:41 CDT by Osmin Clark D.O.
[2021-02-17 10:05] LABS: Add Urine Microscopic? YES; Appearance Urine Clear (Clear); Bilirubin Urine Negative (Negative); Blood Urine Negative (Negative); Color Urine Yellow (Yellow); Glucose Urine UA 3+ mg/dL (Negative); Ketones Urine Negative (Negative); Leukocyte Esterase Ur Trace LEU/UL (NEGATIVE); Mucus Urine Rare /lpf; Nitrate Urine Negative (Negative); Protein Urine 1+ mg/dL (Negative); RBC Urine 0-2 /hpf (0-2); Specific Grav Ur 1.015 (1.001-1.035); WBC Urine 0-3 /hpf (0-3)
--- NOTE | 2021-02-17 10:06 | PM.PNCARD ---
Progress Note: A&P Additional Plan 65-year-old man with: Severe volume overload in the setting of recent onset of atrial fibrillation. The patient does have ischemic heart disease but according to evaluation here does not appear to have significant LV systolic dysfunction. He is also massively obese and has sleep apnea for additional factors contributing to his severe edema. Hopefully he will benefit by congregational of sinus rhythm and I would recommend advancing his diuretic regimen. He has had a modest response to the current dosage of furosemide I would either advance this or transition him to Bumex. Spoke with the hospitalist directly about this today. 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 Also systemically anticoagulated. Admitted to [facility] with significant volume overload. This morning telemetry shows the patient has converted to sinus rhythm. He is in no distress in the room seated in the chair but still has significant lower extremity edema which is weeping. Exam Const: General: no acute distress Other: Massively obese gentleman seated in the chair comfortable but with weeping bilateral lower extremity edema HENMT: Mouth: Yes moist mucous membranes Eyes: Sclera: sclerae normal Pupils: Equal, round and reactive pupils present Neck: Neck: supple Other: cannot assess venous distention given his body habitus Resp: Effort & Inspection: normal respiratory effort Auscultation: clear to auscultation bilaterally Other: breath sounds are distant but essentially clear I do not hear any rales or wheezing Cardio: Rate: regular rate Rhythm: regular rhythm Other: PMI of course is nonpalpable no obvious cardiac murmur GI: GI Palp: Yes Soft to palpation Auscultation: normal bowel sounds Neuro: Cognition (Neuro): normal cognition Extrem: Other: massive bilateral lower extremity edema with weeping and evidence of cellulitis in the right lower extremity Objective Data Vital Signs Vital Signs: Vital Signs - 24 hr 02/16/21 11:55 02/16/21 12:00 02/16/21 14:00 Temperature 36.7 C Pulse Rate 78 65 67 Respiratory Rate 16 Blood Pressure 136/59 L Pulse Oximetry 97 02/16/21 16:00 02/16/21 18:00 02/16/21 18:10 Temperature 36.8 C Pulse Rate 57 L 63 65 Respiratory Rate 17 Blood Pressure 113/46 L Pulse Oximetry 97 02/16/21 19:30 02/16/21 20:00 02/16/21 20:29 Temperature 36.1 C L Pulse Rate 67 65 84 Respiratory Rate 20 20 Blood Pressure 131/52 L Pulse Oximetry 98 98 02/16/21 22:00 02/16/21 22:16 02/17/21 00:00 Temperature 36.2 C L Pulse Rate 55 L 55 L 70 Respiratory Rate 20 Blood Pressure 142/75 H Pulse Oximetry 93 100 02/17/21 02:00 02/17/21 02:30 02/17/21 04:00 Temperature 36.2 C L Pulse Rate 67 69 75 Respiratory Rate 18 Blood Pressure 146/62 H Pulse Oximetry 98 98 02/17/21 06:00 02/17/21 08:00 02/17/21 09:16 Temperature 36.1 C L Pulse Rate 66 87 90 Respiratory Rate 20 Blood Pressure 168/76 H Pulse Oximetry 98 02/17/21 09:17 Temperature Pulse Rate 90 Respiratory Rate Blood Pressure Pulse Oximetry Intake/Output Intake/Output: Intake & Output 02/14/21 02/15/21 02/16/21 02/17/21 23:59 23:59 23:59 23:59 Intake Total 840 2570 1680 540 Output Total 650 1250 1200 375 Balance 190 1320 480 165 Meds/Results Medications: Active Medications Generic Name Dose Route Start Last Admin Trade Name Janq PRN Reason Stop Dose Admin Amiodarone HCl 200 mg 02/15/21 08:00 02/17/21 09:16 Amiodarone Hcl 200 Mg Tablet PO 200 mg BIDWM [facility] Administration Aspirin 81 mg 02/15/21 09:00 02/17/21 09:17 Aspirin 81 Mg Enteric Tablet PO 81 mg QAM [facility] Admini
--- NOTE | 2021-02-17 11:10 | PM.IMPN ---
Progress Note: A&P Assessment and Plan (1) Pulmonary congestion: Code(s): R09.89 - Other specified symptoms and signs involving the circulatory and respiratory systems Status: Acute Assessment and Plan: 2/2 CHF; improving CXR in am (2) Atrial fibrillation: Qualifiers: Atrial fibrillation type: unspecified Qualified Code(s): I48.91 - Unspecified atrial fibrillation Code(s): I48.91 - Unspecified atrial fibrillation Status: Acute Assessment and Plan: pt converted to NSR Cardiology managing Continue antiarrhythmic and OAC (3) Cellulitis of right leg: Code(s): L03.115 - Cellulitis of right lower limb Status: Acute Assessment and Plan: imipenem and vancomycin per antibiotic stewardship recommendations continue IV antibiotics continue wound care (4) Morbid obesity: Code(s): E66.01 - Morbid (severe) obesity due to excess calories Status: Acute Assessment and Plan: greater than 5 minutes dietary counseling given bariatric bed (5) Lymphedema: Code(s): I89.0 - Lymphedema, not elsewhere classified Status: Acute Assessment and Plan: chronic (6) Obstructive sleep apnea on CPAP: Code(s): G47.33 - Obstructive sleep apnea (adult) (pediatric); Z99.89 - Dependence on other enabling machines and devices Status: Acute Assessment and Plan: cont CPAP while in hospital (7) Hypertension: Code(s): I10 - Essential (primary) hypertension Status: Acute Assessment and Plan: adjusting BP meds (8) Hyperlipidemia: Code(s): E78.5 - Hyperlipidemia, unspecified Status: Acute Assessment and Plan: continue statin (9) Insulin dependent type 2 diabetes mellitus: Code(s): E11.9 - Type 2 diabetes mellitus without complications; Z79.4 - residential (current) use of insulin Status: Acute Assessment and Plan: patient with insulin pump will use his own machine during hospitalization cont accuchecks am hypoglycemia noted on labs, consult dietary, care plan reviewed w RN (10) Coronary artery disease: Code(s): I25.10 - Atherosclerotic heart disease of [place] coronary artery without angina pectoris Status: Acute Assessment and Plan: cont medical management ACS ruled out cardiology recs appreciated (11) VALENCIA (acute kidney injury): Code(s): N17.9 - Acute kidney failure, unspecified Status: Acute Assessment and Plan: VALENCIA on CKD 3 consult nephrology (12) CKD stage 3 due to type 2 diabetes mellitus: Code(s): E11.22 - Type 2 diabetes mellitus with diabetic chronic kidney disease; N18.30 - Chronic kidney disease, stage 3 unspecified Status: Acute Assessment and Plan: nephrology consulted for VALENCIA on CKD 3 (13) Acute on chronic diastolic CHF (congestive heart failure): Code(s): I50.33 - Acute on chronic diastolic (congestive) heart failure Status: Acute Assessment and Plan: lasix -> bumex strict Is Os mota catheter daily weights fluid restriction (14) Elevated troponin: Code(s): R77.8 - Other specified abnormalities of plasma proteins Status: Acute (15) Paroxysmal atrial fibrillation: Code(s): I48.0 - Paroxysmal atrial fibrillation Status: Acute Additional Plan VTEP w [facility] anticipate dc when cellulitis improved, euvolemic, and afib stable Subjective Date/time seen: 02/17/21 11:10 patient sitting up in chair doing very well. Cardiology rounding during my visit this morning. Recommendations appreciated. and patient updated on plan of care. Exam Narrative: GEN: NAD, morbidly obese, cooperative HEENT: NCAT, MMM, EOMI Neck: no JVD Heart: S1S2 RRR Lungs: CTA B/l Abd: soft, NT, ND, bowel sounds normoactive Ext: moves all, no cyanosis, no clubbing, 3+ pitting edema, right lower extremity erythematous, tender to palpation, b
[2021-02-17 11:25] LABS: Total Protein Urine Random 60 mg/dL; Ur Ttl Prot Creatinine Ratio 0.39 mg/mg (0-0.20)
--- NOTE | 2021-02-17 11:25 | PM.PNNEP ---
Progress Note: A&P Assessment and Plan (1) VALENCIA (acute kidney injury): Code(s): N17.9 - Acute kidney failure, unspecified Status: Acute Assessment and Plan: the patient has acute kidney injury. Is unclear what his baseline is. We can try to get some records from his primary care doctor. If so, diabetes, hypertension, and vascular disease are playing a significant role. Certainly has an element of acute kidney injury. Renal ultrasound is unremarkable urine electrolytes are pre renal. Urine protein is only around 300 so is not contributing to the swelling. CPK was normal Possible causes of the higher creatinine include: Acute tubular necrosis from the cellulitis. Pre renal azotemia from cardiac function pre renal azotemia from 3rd spacing and diuretics he was on meloxicam before he came into the hospital creatinine is about the same today. will continue diuretics. I agree with switching to Bumetanide. Will add metolazone as well. (2) Cellulitis of leg: Qualifiers: Laterality: right Qualified Code(s): L03.115 - Cellulitis of right lower limb Code(s): L03.119 - Cellulitis of unspecified part of limb Status: Acute Assessment and Plan: He is on vancomycin and Primaxin. He is afebrile. White count is still elevated. (3) Lymphedema: Code(s): I89.0 - Lymphedema, not elsewhere classified Status: Acute Assessment and Plan: Not much protein in the urine so this is not contributing. Cardiac issues a possible contributing factor The patient was on a dihydropyridine calcium channel calli. He is now off this. insufficiency of venous and lymphatic systems are probably playing a significant role. Continue local therapy and diuretics (4) Paroxysmal atrial fibrillation: Code(s): I48.0 - Paroxysmal atrial fibrillation Status: Acute Assessment and Plan: Heart rate doing well in the 70s and 80s (5) Hypertension: Code(s): I10 - Essential (primary) hypertension Status: Acute Assessment and Plan: blood pressure is target at 140-160 for now (6) Coronary artery disease: Code(s): I25.10 - Atherosclerotic heart disease of [place] coronary artery without angina pectoris Status: Acute Assessment and Plan: no chest pain or shortness of breath. Cardiology on the case. (7) Insulin dependent type 2 diabetes mellitus: Code(s): E11.9 - Type 2 diabetes mellitus without complications; Z79.4 - custodial (current) use of insulin Status: Acute Assessment and Plan: On Accu-Cheks and sliding-scale insulin (8) Hyperlipidemia: Code(s): E78.5 - Hyperlipidemia, unspecified Status: Acute Assessment and Plan: on atorvastatin Subjective Date/time seen: 02/17/21 11:25 Interval history: Carlton is feeling about the same today. Still very swollen. in the room. We discussed the case. Review of Systems Cardiovascular: Cardiovascular: Reports no additional cardiovascular complaints Respiratory: Respiratory: Reports no additional respiratory complaints Gastrointestinal: Gastrointestinal: Reports no additional gastrointestinal complaints Genitourinary: Genitourinary: Reports no additional male genitourinary complaints Exam Narrative: WDWN in NAD skin no rash head ncat lungs clear anteriorly, decreased breath sounds at the bases. cor reg no rub abd BS+ nontender and soft ext 2+ bilateral edema. Objective Data Vital Signs Vital Signs: Vital Signs - 24 hr 02/16/21 11:55 02/16/21 12:00 02/16/21 14:00 Temperature 36.7 C Pulse Rate 78 65 67 Respiratory Rate 16 Blood Pressure 136/59 L Pulse Oximetry 97 02/16/21 16:00 02/16/21 18:00 02/16/21 18:10 Temperature 36.8 C Pulse Rate 57 L 63 65 Respiratory Rate 17 Blood Pressure 113/46 L Pulse Oximetry 97 02/16/21 19:30 02/16/21
[2021-02-17 11:28] LABS: Sodium Urine Random 16 meq/L
[2021-02-17] MEDS: ACETAMINOPHEN 325 MG TABLET 650 MG PO ×2 (12:08→21:29)
[2021-02-17 12:24] LABS: Glucose Point of Care 231 mg/dl (65-105)
[2021-02-17 17:41] LABS: Glucose Point of Care 227 mg/dl (65-105)
[2021-02-17] MEDS: BUMETANIDE INJ 1 MG/4 ML VIAL IV PUSH (18:04)
[2021-02-17] MEDS: metOLazone 5 MG TABLET PO (18:05)
[2021-02-17 20:20] LABS: Glucose Point of Care 213 mg/dl (65-105)
[2021-02-18] VITALS (19 sets, daily range): BP systolic 120–146; BP diastolic 57–87; PULSE 53–96; RESP 18–24; TEMP 35.6–36.6; O2SAT 96–100
[2021-02-18 06:01] LABS: Albumin Level 2.6 g/dL (3.5-5.1); Anion Gap 7 mmol/L (8-16); Blood Urea Nitrogen 42 mg/dL (9-20); Carbon Dioxide 29 mmol/L (22-30); Chloride 97 mmol/L (98-107); Estimated CRCL calculation 50 ml/min; Estimated Glomerular Filt Rate 30; Glucose 72 mg/dL (65-110); Phosphorus 4.6 mg/dL (2.5-4.5); Potassium 3.1 mmol/L (3.4-5.0); Sodium 133 mmol/L (137-145)
--- NOTE | 2021-02-18 10:53 | PM.PNCARD ---
Progress Note: A&P Additional Plan 65-year-old man with: History of atrial fibrillation of recent onset being managed with amiodarone and systemic anticoagulation. His established washer engineer as anticipated and attempt at cardioversion after about a month or more of oral amiodarone loading. Yesterday it appeared he was spontaneously back in sinus rhythm today it looks like he is back in rate controlled atrial fib. Hopefully the longer he takes amiodarone the propensity for atrial fibrillation will decrease. He does report increased urine output in response to Bumex the patient is massively obese and so it is very difficult if not impossible to tell clinically how this is changing from 1 day to the next. Since there has been reported benefit I suppose I would recommend continuing IV Bumex for the time being. Alon Dalal MD [facility] Subjective Date/time seen: date of service:02/18/21 10:53 Interval history: Follow-up visit in this 65-year-old man with: Atrial fibrillation of recent onset had been started on amiodarone by his established washer engineer within the last couple of weeks. Also systemically anticoagulated. Admitted to [facility] with significant volume overload. date of service: 02/18/2021. Patient reports today that he thinks he has had a better diuresis with the Bumex states his urine output has increased and the staff have emptied the bottle several times in the last couple of shifts. Yesterday telemetry appeared to show he had converted to sinus rhythm today it looks like rate controlled atrial fib. Exam Narrative: In bed, at bedside, not on any o2 Const: General: comfortable and no acute distress; No confusion Orientation/consciousness: No confusion Other: Massively obese gentleman seated in the chair comfortable but with weeping bilateral lower extremity edema HENMT: General nose exam: no epistaxis Mouth: Yes moist mucous membranes Eyes: Sclera: sclerae normal Pupils: Equal, round and reactive pupils present EOM: EOMs intact bilaterally Neck: Neck: supple and no JVD ( obese neck, difficult to evaluate) Thyroid: thyroid normal Carotids: no bruits Lymphatic: lymphadenopathy not noted Other: cannot assess venous distention given his body habitus Resp: Effort & Inspection: normal respiratory effort Auscultation: clear to auscultation bilaterally, rales (Rales 1/3 up bilat) and diminished lung sounds ( both bases) Other: breath sounds are distant but essentially clear I do not hear any rales or wheezing Cardio: Rate: regular rate Rhythm: regular rhythm and abnormal rhythm irregularly irregular Heart sounds: no murmurs Other: PMI of course is nonpalpable no obvious cardiac murmur GI: Inspection: distended Auscultation: normal bowel sounds Skin: Wounds: wounds noted Other: RLE still very erythematous; cellulitis is draining. Neuro: General: No confusion Cranial nerves: Yes Equal, round and reactive pupils present Cognition (Neuro): normal cognition Speech: normal speech Extrem: General: edema and pedal edema Other: massive bilateral lower extremity edema with weeping and evidence of cellulitis in the right lower extremity Psych: Mental Status: mental status grossly normal Affect: normal affect Objective Data Vital Signs Vital Signs: Vital Signs - 24 hr 02/17/21 12:00 02/17/21 14:00 02/17/21 16:00 Temperature 36.9 C 36.5 C Pulse Rate 74 70 67 Respiratory Rate 18 18 Blood Pressure 151/74 H 145/75 H Pulse Oximetry 100 98 02/17/21 18:00 02/17/21 18:04 02/17/21 19:02 Temperature 36.3 C L Pulse Rate 64 87 75 Respiratory Rate 20 Blood Pressure 173/69 H Pulse Oximetry 99 02/17/21 20:00 02/17/21 21:28 02/17/21 22:00 Temperature Pulse Rate 75 73 71 Respiratory Rate 20 Blood Pressure Pulse Oximetry 99 02/17/21 23:37 02/18/21 00:00 02/18/21 02:00 Temperature 36.1 C L Pulse Rate 64 56 L 57 L Respiratory Rate 18 18
[2021-02-18] MEDS: METOPROLOL TARTRATE 50 MG TAB 100 MG PO ×2 (11:15→20:49)
[2021-02-18] MEDS: GABAPENTIN 300 MG CAPSULE PO ×2 (11:16→18:15)
[2021-02-18] MEDS: RIVAROXABAN 20 MG TABLET PO (11:16)
[2021-02-18] MEDS: ASPIRIN 81 MG ENTERIC TABLET PO (11:16)
[2021-02-18] MEDS: ATORVASTATIN 40 MG TABLET PO (11:16)
[2021-02-18] MEDS: OLMESARTAN MEDOXOMIL 20 MG TABLET 40 MG PO (11:16)
[2021-02-18] MEDS: PANTOPRAZOLE 40 MG TABLET PO ×2 (11:17→18:16)
[2021-02-18] MEDS: hydrALAZINE HCL 50 MG TABLET PO ×3 (11:17→18:15)
[2021-02-18] MEDS: BUMETANIDE INJ 1 MG/4 ML VIAL IV PUSH ×2 (11:18→18:16)
[2021-02-18] MEDS: AMIODARONE HCL 200 MG TABLET PO ×2 (11:18→18:15)
[2021-02-18] MEDS: SERTRALINE HCL 50 MG TABLET PO (11:18)
[2021-02-18] MEDS: CHOLECALCIFEROL 1,000 UNITS TABLET 2000 UNITS PO (11:18)
[2021-02-18 11:19] LABS: Glucose Point of Care 71 mg/dl (65-105)
[2021-02-18] MEDS: ACETAMINOPHEN 325 MG TABLET 650 MG PO ×2 (11:35→18:31)
[2021-02-18] MEDS: metOLazone 5 MG TABLET PO (11:35)
[2021-02-18] MEDS: POTASSIUM CHLORIDE 20 MEQ PACKET (FOR LIQUID) 40 MEQ PO (11:35)
--- NOTE | 2021-02-18 12:05 | PM.PNNEP ---
Progress Note: A&P Assessment and Plan (1) VALENCIA (acute kidney injury): Code(s): N17.9 - Acute kidney failure, unspecified Status: Acute Assessment and Plan: the patient has acute kidney injury. Await old records. Certainly has an element of acute kidney injury. Renal ultrasound is unremarkable urine electrolytes are pre renal. Urine protein is only around 300 so is not contributing to the swelling. CPK was normal Possible causes of the higher creatinine include: Acute tubular necrosis from the cellulitis. Pre renal azotemia from cardiac function pre renal azotemia from 3rd spacing and diuretics he was on meloxicam before he came into the hospital Creatinine is marginally higher today. will continue diuretics. He is on metolazone plus Bumex. CO2 is okay and potassium is a little bit low. Will add spironolactone (2) Cellulitis of leg: Qualifiers: Laterality: right Qualified Code(s): L03.115 - Cellulitis of right lower limb Code(s): L03.119 - Cellulitis of unspecified part of limb Status: Acute Assessment and Plan: He is on vancomycin and Primaxin. He is afebrile. White count is still elevated. (3) Lymphedema: Code(s): I89.0 - Lymphedema, not elsewhere classified Status: Acute Assessment and Plan: Not much protein in the urine so this is not contributing. Cardiac issues a possible contributing factor The patient was on a dihydropyridine calcium channel calli. He is now off this. his blood pressure is doing okay off of the amlodipine. (4) Paroxysmal atrial fibrillation: Code(s): I48.0 - Paroxysmal atrial fibrillation Status: Acute Assessment and Plan: Heart rate doing well in the 70s and 80s (5) Hypertension: Code(s): I10 - Essential (primary) hypertension Status: Acute Assessment and Plan: blood pressure is target at 140-160 for now (6) Coronary artery disease: Code(s): I25.10 - Atherosclerotic heart disease of [place] coronary artery without angina pectoris Status: Acute Assessment and Plan: no chest pain or shortness of breath. Cardiology on the case. (7) Insulin dependent type 2 diabetes mellitus: Code(s): E11.9 - Type 2 diabetes mellitus without complications; Z79.4 - halfway (current) use of insulin Status: Acute Assessment and Plan: On Accu-Cheks and sliding-scale insulin (8) Hyperlipidemia: Code(s): E78.5 - Hyperlipidemia, unspecified Status: Acute Assessment and Plan: on atorvastatin Subjective Date/time seen: 02/18/21 12:05 Interval history: Carlton is feeling about the same today. Still very swollen. however he has feels like his swelling is a little better in the room. Exam Narrative: WDWN in NAD skin no rash head ncat lungs clear anteriorly, decreased breath sounds at the bases. cor reg no rub abd BS+ nontender and soft ext 2+ bilateral edema. Objective Data Vital Signs Vital Signs: Vital Signs - 24 hr 02/17/21 14:00 02/17/21 16:00 02/17/21 18:00 Temperature 36.5 C Pulse Rate 70 67 64 Respiratory Rate 18 Blood Pressure 145/75 H Pulse Oximetry 98 02/17/21 18:04 02/17/21 19:02 02/17/21 20:00 Temperature 36.3 C L Pulse Rate 87 75 75 Respiratory Rate 20 20 Blood Pressure 173/69 H Pulse Oximetry 99 99 02/17/21 21:28 02/17/21 22:00 02/17/21 23:37 Temperature 36.1 C L Pulse Rate 73 71 64 Respiratory Rate 18 Blood Pressure 101/42 L Pulse Oximetry 96 02/18/21 00:00 02/18/21 02:00 02/18/21 03:39 Temperature 36.6 C Pulse Rate 56 L 57 L 57 L Respiratory Rate 18 20 Blood Pressure 134/57 L Pulse Oximetry 96 96 02/18/21 04:00 02/18/21 06:00 02/18/21 08:00 Temperature Pulse Rate 58 L 57 L 63 Respiratory Rate 20 22 H Blood Pressure Pulse Oximetry 96 100 02/18/21 08:50
[2021-02-18 12:43] LABS: Glucose Point of Care 158 mg/dl (65-105)
--- NOTE | 2021-02-18 15:54 | PM.IMPN ---
Progress Note: A&P Assessment and Plan (1) Pulmonary congestion: Code(s): R09.89 - Other specified symptoms and signs involving the circulatory and respiratory systems Status: Acute Assessment and Plan: 2/2 CHF; improving CXR in am <2000L (2) Atrial fibrillation: Qualifiers: Atrial fibrillation type: unspecified Qualified Code(s): I48.91 - Unspecified atrial fibrillation Code(s): I48.91 - Unspecified atrial fibrillation Status: Acute Assessment and Plan: pt converted to NSR Cardiology managing Continue antiarrhythmic and OAC (3) Cellulitis of right leg: Code(s): L03.115 - Cellulitis of right lower limb Status: Acute Assessment and Plan: imipenem and vancomycin per antibiotic stewardship recommendations continue IV antibiotics continue wound care may need ID consult if does not significantly improve over the next couple of days (4) Morbid obesity: Code(s): E66.01 - Morbid (severe) obesity due to excess calories Status: Acute Assessment and Plan: greater than 5 minutes dietary counseling given bariatric bed (5) Lymphedema: Code(s): I89.0 - Lymphedema, not elsewhere classified Status: Acute Assessment and Plan: chronic (6) Obstructive sleep apnea on CPAP: Code(s): G47.33 - Obstructive sleep apnea (adult) (pediatric); Z99.89 - Dependence on other enabling machines and devices Status: Acute Assessment and Plan: cont CPAP while in hospital (7) Hypertension: Code(s): I10 - Essential (primary) hypertension Status: Acute Assessment and Plan: adjusting BP meds (8) Hyperlipidemia: Code(s): E78.5 - Hyperlipidemia, unspecified Status: Acute Assessment and Plan: continue statin (9) Insulin dependent type 2 diabetes mellitus: Code(s): E11.9 - Type 2 diabetes mellitus without complications; Z79.4 - shelter (current) use of insulin Status: Acute Assessment and Plan: patient with insulin pump will use his own machine during hospitalization cont accuchecks monitor for hypoglycemia (10) Coronary artery disease: Code(s): I25.10 - Atherosclerotic heart disease of [place] coronary artery without angina pectoris Status: Acute Assessment and Plan: cont medical management ACS ruled out cardiology recs appreciated (11) VALENCIA (acute kidney injury): Code(s): N17.9 - Acute kidney failure, unspecified Status: Acute Assessment and Plan: VALENCIA on CKD 3 Cr 2.0 consult nephrology (12) CKD stage 3 due to type 2 diabetes mellitus: Code(s): E11.22 - Type 2 diabetes mellitus with diabetic chronic kidney disease; N18.30 - Chronic kidney disease, stage 3 unspecified Status: Acute Assessment and Plan: nephrology consulted for VALENCIA on CKD 3 creatinine rising while diuresing (13) Acute on chronic diastolic CHF (congestive heart failure): Code(s): I50.33 - Acute on chronic diastolic (congestive) heart failure Status: Acute Assessment and Plan: lasix -> bumex strict Is Os mota catheter daily weights fluid restriction -2000L (14) Elevated troponin: Code(s): R77.8 - Other specified abnormalities of plasma proteins Status: Acute (15) Paroxysmal atrial fibrillation: Code(s): I48.0 - Paroxysmal atrial fibrillation Status: Acute Additional Plan VTEP w [facility] anticipate dc when cellulitis improved, euvolemic w stable renal fxn Subjective Date/time seen: 02/18/21 15:54 feeling better, more comfortable w mota catheter, LE skin changes only minimally improving but he does report less pain in right leg. Exam Narrative: GEN: NAD, morbidly obese, cooperative HEENT: NCAT, MMM, EOMI Neck: no JVD Heart: S1S2 RRR Lungs: b/l crackles Abd: soft, NT, ND, bowel sounds normoactive Ext: moves all, no cyanosis, no clubbing,
[2021-02-18 17:06] LABS: Glucose Point of Care 162 mg/dl (65-105)
[2021-02-18] MEDS: SPIRONOLACTONE 25 MG TABLET PO (18:16)
[2021-02-18 20:59] LABS: Glucose Point of Care 219 mg/dl (65-105)
[2021-02-19] VITALS (17 sets, daily range): BP systolic 116–145; BP diastolic 53–79; PULSE 49–80; RESP 20–22; TEMP 36.2–37.2; O2SAT 96–98
[2021-02-19 05:52] LABS: Albumin Level 2.5 g/dL (3.5-5.1); Anion Gap 9 mmol/L (8-16); Blood Urea Nitrogen 45 mg/dL (9-20); Calcium 8.3 mg/dL (8.4-10.2); Carbon Dioxide 31 mmol/L (22-30); Chloride 92 mmol/L (98-107); Estimated CRCL calculation 49 ml/min; Estimated Glomerular Filt Rate 30; Glucose 99 mg/dL (65-110); Phosphorus 4.8 mg/dL (2.5-4.5); Potassium 3.4 mmol/L (3.4-5.0); Sodium 132 mmol/L (137-145)
[2021-02-19 07:35] LABS: Glucose Point of Care 106 mg/dl (65-105)
[2021-02-19] MEDS: AMIODARONE HCL 200 MG TABLET PO ×2 (08:36→17:26)
[2021-02-19] MEDS: metOLazone 5 MG TABLET PO (08:36)
[2021-02-19] MEDS: CHOLECALCIFEROL 1,000 UNITS TABLET 2000 UNITS PO (08:36)
[2021-02-19] MEDS: RIVAROXABAN 20 MG TABLET PO (08:36)
[2021-02-19] MEDS: BUMETANIDE INJ 1 MG/4 ML VIAL IV PUSH ×2 (08:36→17:28)
[2021-02-19] MEDS: OLMESARTAN MEDOXOMIL 20 MG TABLET 40 MG PO (08:36)
[2021-02-19] MEDS: PANTOPRAZOLE 40 MG TABLET PO ×2 (08:37→17:26)
[2021-02-19] MEDS: hydrALAZINE HCL 50 MG TABLET PO ×3 (08:37→17:28)
[2021-02-19] MEDS: ASPIRIN 81 MG ENTERIC TABLET PO (08:37)
[2021-02-19] MEDS: SERTRALINE HCL 50 MG TABLET PO (08:37)
[2021-02-19] MEDS: METOPROLOL TARTRATE 50 MG TAB 100 MG PO ×2 (08:37→21:15)
[2021-02-19] MEDS: SPIRONOLACTONE 25 MG TABLET PO ×2 (08:37→17:26)
[2021-02-19] MEDS: ATORVASTATIN 40 MG TABLET PO (08:37)
[2021-02-19] MEDS: GABAPENTIN 300 MG CAPSULE PO ×2 (08:38→17:28)
[2021-02-19] MEDS: ACETAMINOPHEN 325 MG TABLET 650 MG PO ×2 (08:46→17:26)
--- NOTE | 2021-02-19 09:28 | PM.PNCARD ---
Progress Note: A&P Additional Plan 65-year-old man with: Massive obesity, sleep apnea on CPAP presenting with marked volume overload is responding to aggressive diuretics. He is in atrial fibrillation his bill sorter who sees him elsewhere has him on outpatient amiodarone loading program in anticipation of considering cardioversion in the near future. He is systemically anticoagulated with Xarelto. It was interesting that on Saturday of this past week he was in sinus rhythm for a short time hopefully S he continues to take amiodarone he will eventually settle into sinus rhythm and not need to be cardioverted. In any event he is responding well to the current regimen. In addition to this his right lower extremity cellulitis does look noticeably better to me today. No additional cardiac issues that I can see. Will continue to follow with you while he is in [place]. Upon discharge his established bill sorter Dr. Wallace will follow-up with him he will therefore not require appointments in my office as well Alon Dalal MD [facility] Subjective Date/time seen: date of service:02/19/21 09:28 Interval history: Follow-up visit in this 65-year-old man with: Atrial fibrillation of recent onset had been started on amiodarone by his established bill sorter within the last couple of weeks. Also systemically anticoagulated. Admitted to [facility] with significant volume overload. Date of service 02/19/2021: Patient resting supine in bed with the legs elevated offers no new complaints of any kind. Reports a brisk urinary output with the current diuretic regimen. Exam Narrative: In bed, at bedside, not on any o2 Const: General: comfortable and no acute distress; No confusion Orientation/consciousness: No confusion Other: Massively obese gentleman seated in the chair comfortable but with weeping bilateral lower extremity edema HENMT: General nose exam: no epistaxis Mouth: Yes moist mucous membranes Eyes: Sclera: sclerae normal Pupils: Equal, round and reactive pupils present EOM: EOMs intact bilaterally Neck: Neck: supple and no JVD ( obese neck, difficult to evaluate) Thyroid: thyroid normal Carotids: no bruits Lymphatic: lymphadenopathy not noted Other: cannot assess venous distention given his body habitus Resp: Effort & Inspection: normal respiratory effort Auscultation: clear to auscultation bilaterally, rales (Rales 1/3 up bilat) and diminished lung sounds ( both bases) Other: breath sounds are distant but essentially clear I do not hear any rales or wheezing Cardio: Rate: regular rate Rhythm: regular rhythm and abnormal rhythm irregularly irregular Heart sounds: no murmurs Other: PMI of course is nonpalpable no obvious cardiac murmur GI: Inspection: distended Auscultation: normal bowel sounds Skin: Wounds: wounds noted Other: RLE still very erythematous; cellulitis is draining. Neuro: General: No confusion Cranial nerves: Yes Equal, round and reactive pupils present Cognition (Neuro): normal cognition Speech: normal speech Extrem: General: edema and pedal edema Other: massive bilateral lower extremity edema with weeping and evidence of cellulitis in the right lower extremity Psych: Mental Status: mental status grossly normal Affect: normal affect Objective Data Vital Signs Vital Signs: Vital Signs - 24 hr 02/18/21 10:00 02/18/21 11:15 02/18/21 11:18 Temperature Pulse Rate 68 63 63 Respiratory Rate Blood Pressure Pulse Oximetry 02/18/21 12:00 02/18/21 14:00 02/18/21 16:00 Temperature 35.6 C L Pulse Rate 67 63 53 L Respiratory Rate 20 Blood Pressure 146/57 H Pulse Oximetry 99 02/18/21 16:40 02/18/21 18:00 02/18/21 18:15 Temperature 35.8 C L Pulse Rate 96 68 72 Respiratory Rate 22 H Blood Pressure 145/87 H Pulse Oximetry 100 02/18/21 20:00 02/18/21 20:49 02/18/21 22:00 Temperature Pulse Rate 68 67 58 L Respiratory Rate
--- NOTE | 2021-02-19 10:28 | PM.IMPN ---
Progress Note: A&P Assessment and Plan (1) Pulmonary congestion: Code(s): R09.89 - Other specified symptoms and signs involving the circulatory and respiratory systems Status: Acute Assessment and Plan: 2/2 CHF; improving CXR in am <1000L (2) Atrial fibrillation: Qualifiers: Atrial fibrillation type: unspecified Qualified Code(s): I48.91 - Unspecified atrial fibrillation Code(s): I48.91 - Unspecified atrial fibrillation Status: Acute Assessment and Plan: pt converted to NSR Cardiology managing Continue antiarrhythmic and OAC (3) Cellulitis of right leg: Code(s): L03.115 - Cellulitis of right lower limb Status: Acute Assessment and Plan: imipenem and vancomycin per antibiotic stewardship recommendations continue IV antibiotics continue wound care may need ID consult if does not significantly improve over the next couple of days (4) Morbid obesity: Code(s): E66.01 - Morbid (severe) obesity due to excess calories Status: Acute Assessment and Plan: greater than 5 minutes dietary counseling given bariatric bed (5) Lymphedema: Code(s): I89.0 - Lymphedema, not elsewhere classified Status: Acute Assessment and Plan: chronic (6) Obstructive sleep apnea on CPAP: Code(s): G47.33 - Obstructive sleep apnea (adult) (pediatric); Z99.89 - Dependence on other enabling machines and devices Status: Acute Assessment and Plan: cont CPAP while in hospital (7) Hypertension: Code(s): I10 - Essential (primary) hypertension Status: Acute Assessment and Plan: adjusting BP meds (8) Hyperlipidemia: Code(s): E78.5 - Hyperlipidemia, unspecified Status: Acute Assessment and Plan: continue statin (9) Insulin dependent type 2 diabetes mellitus: Code(s): E11.9 - Type 2 diabetes mellitus without complications; Z79.4 - [facility] (current) use of insulin Status: Acute Assessment and Plan: patient with insulin pump will use his own machine during hospitalization cont accuchecks monitor for hypoglycemia (10) Coronary artery disease: Code(s): I25.10 - Atherosclerotic heart disease of [place] coronary artery without angina pectoris Status: Acute Assessment and Plan: cont medical management ACS ruled out cardiology recs appreciated (11) VALENCIA (acute kidney injury): Code(s): N17.9 - Acute kidney failure, unspecified Status: Acute Assessment and Plan: VALENCIA on CKD 3 Cr 2.0 consult nephrology (12) CKD stage 3 due to type 2 diabetes mellitus: Code(s): E11.22 - Type 2 diabetes mellitus with diabetic chronic kidney disease; N18.30 - Chronic kidney disease, stage 3 unspecified Status: Acute Assessment and Plan: nephrology consulted for VALENCIA on CKD 3 creatinine rising while diuresing (13) Acute on chronic diastolic CHF (congestive heart failure): Code(s): I50.33 - Acute on chronic diastolic (congestive) heart failure Status: Acute Assessment and Plan: lasix -> bumex strict Is Os mota catheter daily weights fluid restriction reordered today -1000L (14) Elevated troponin: Code(s): R77.8 - Other specified abnormalities of plasma proteins Status: Acute Assessment and Plan: cardiology following (15) Paroxysmal atrial fibrillation: Code(s): I48.0 - Paroxysmal atrial fibrillation Status: Acute Assessment and Plan: converted to normal sinus rhythm Additional Plan VTEP w Eliquis anticipate dc when cellulitis improved, euvolemic w stable renal fxn Subjective Date/time seen: 02/19/21 10:28 doing okay fluid restrictions reordered today plan of care reviewed with patient all questions answered overall he is feeling better Exam Narrative: GEN: NAD, morbidly obese, cooperative HEENT: NCAT, MMM, EOMI Neck: no JV
--- NOTE | 2021-02-19 10:29 | PM.PNNEP ---
Progress Note: A&P Assessment and Plan (1) VALENCIA (acute kidney injury): Code(s): N17.9 - Acute kidney failure, unspecified Status: Acute Assessment and Plan: the patient has acute kidney injury. Await old records. Certainly has an element of acute kidney injury. Renal ultrasound is unremarkable urine electrolytes are pre renal. Urine protein is only around 300 so is not contributing to the swelling. CPK was normal Possible causes of the higher creatinine include: Acute tubular necrosis from the cellulitis. pre renal azotemia from 3rd spacing and diuretics he was on meloxicam before he came into the hospital Creatinine is stable will continue diuretics. He is on metolazone plus Bumex. CO2 is starting to climb. Add Diamox (2) Cellulitis of leg: Qualifiers: Laterality: right Qualified Code(s): L03.115 - Cellulitis of right lower limb Code(s): L03.119 - Cellulitis of unspecified part of limb Status: Acute Assessment and Plan: He is on vancomycin and Primaxin. He is afebrile. White count is still elevated. (3) Lymphedema: Code(s): I89.0 - Lymphedema, not elsewhere classified Status: Acute Assessment and Plan: Not much protein in the urine so this is not contributing. Cardiac issues a possible contributing factor The patient was on a dihydropyridine calcium channel calli. He is now off this. his blood pressure is doing okay off of the amlodipine. (4) Paroxysmal atrial fibrillation: Code(s): I48.0 - Paroxysmal atrial fibrillation Status: Acute Assessment and Plan: Heart rate doing well in the 70s and 80s (5) Hypertension: Code(s): I10 - Essential (primary) hypertension Status: Acute Assessment and Plan: blood pressure is target at 140-160 for now (6) Coronary artery disease: Code(s): I25.10 - Atherosclerotic heart disease of [place] coronary artery without angina pectoris Status: Acute Assessment and Plan: no chest pain or shortness of breath. Cardiology on the case. (7) Insulin dependent type 2 diabetes mellitus: Code(s): E11.9 - Type 2 diabetes mellitus without complications; Z79.4 - [facility] intermediate (current) use of insulin Status: Acute Assessment and Plan: On Accu-Cheks and sliding-scale insulin. (8) Hyperlipidemia: Code(s): E78.5 - Hyperlipidemia, unspecified Status: Acute Assessment and Plan: on atorvastatin Subjective Date/time seen: 02/19/21 10:29 Interval history: Carlton is feeling about the same today. urine output is better. No chest pain or shortness of Breath swelling seems to be a little bit better, and erythema on right leg is better Exam Narrative: WDWN in NAD skin no rash head ncat lungs clear anteriorly, decreased breath sounds at the bases. cor reg no rub or gallop abd BS+ nontender and soft ext 2+ bilateral edema. erythema improved Objective Data Vital Signs Vital Signs: Vital Signs - 24 hr 02/18/21 11:15 02/18/21 11:18 02/18/21 12:00 Temperature 35.6 C L Pulse Rate 63 63 67 Respiratory Rate 20 Blood Pressure 146/57 H Pulse Oximetry 99 02/18/21 14:00 02/18/21 16:00 02/18/21 16:40 Temperature 35.8 C L Pulse Rate 63 53 L 96 Respiratory Rate 22 H Blood Pressure 145/87 H Pulse Oximetry 100 02/18/21 18:00 02/18/21 18:15 02/18/21 20:00 Temperature Pulse Rate 68 72 68 Respiratory Rate 24 H Blood Pressure Pulse Oximetry 98 02/18/21 20:49 02/18/21 22:00 02/19/21 00:00 Temperature 37.0 C Pulse Rate 67 58 L 49 L Respiratory Rate 21 H Blood Pressure 117/76 Pulse Oximetry 96 02/19/21 02:00 02/19/21 04:00 02/19/21 06:00 Temperature 37.1 C Pulse Rate 56 L 60 59 L Respiratory Rate 20 Blood Pressure 120/75 Pulse Oximetry 96 02/19/21 08:00 02/19/21 08:36 02/19/21 08:37 Te
[2021-02-19 11:53] LABS: Glucose Point of Care 142 mg/dl (65-105)
[2021-02-19 17:00] LABS: Glucose Point of Care 127 mg/dl (65-105)
[2021-02-19] MEDS: acetaZOLAMIDE TAB 250 MG TABLET 500 MG PO (17:27)
[2021-02-19 21:25] LABS: Glucose Point of Care 187 mg/dl (65-105)
[2021-02-19 23:27] LABS: Vancomycin Trough 22.6 ug/mL (10.0-20.0)
[2021-02-20] VITALS (20 sets, daily range): BP systolic 76–124; BP diastolic 48–76; PULSE 12–73; RESP 12–21; TEMP 36.1–37; O2SAT 97–100
[2021-02-20 05:49] LABS: Albumin Level 2.9 g/dL (3.5-5.1); Anion Gap 11 mmol/L (8-16); Blood Urea Nitrogen 45 mg/dL (9-20); Calcium 8.5 mg/dL (8.4-10.2); Carbon Dioxide 29 mmol/L (22-30); Chloride 94 mmol/L (98-107); Estimated CRCL calculation 42 ml/min; Estimated Glomerular Filt Rate 25; Glucose 118 mg/dL (65-110); Phosphorus 5.4 mg/dL (2.5-4.5); Potassium 3.2 mmol/L (3.4-5.0); Sodium 134 mmol/L (137-145)
--- NOTE | 2021-02-20 07:54 | PM.PNCARD ---
Progress Note: A&P Additional Plan 65-year-old man with: Marked volume overload state which is primarily the result of massive obesity hypoventilation syndrome in my opinion with right heart failure. His left ventricle is doing reasonably well by echo evaluation. His atrial fibrillation with a very well-controlled heart rate is not significantly contributing to this. 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 As noted by Dr. Gómez the patient is starting to develop a contraction alkalosis and it would seem therefore is at the point of achieving maximal hospital benefit from what we can reasonably be expected to achieve here. My recommendation would be to plan discharge relatively soon and follow up with Dr. Wallace his established physician who will make decisions about attempting cardioversion or not in the near future. Alon Dalal MD [facility] Subjective Date/time seen: date of service: 02/20/21 07:54 Interval history: Follow-up visit in this 65-year-old man with: Atrial fibrillation of recent onset had been started on amiodarone by his established production truck driver within the last couple of weeks. Also systemically anticoagulated. Admitted to [facility] with significant volume overload. date of service 02/20/2021: Patient is sleeping flat in bed no distress of any kind upon awakening no new symptoms or issues to report.. Exam Narrative: In bed, at bedside, not on any o2 Const: General: comfortable and no acute distress; No confusion Orientation/consciousness: No confusion Other: Massively obese gentleman seated in the chair comfortable but with weeping bilateral lower extremity edema HENMT: General nose exam: no epistaxis Mouth: Yes moist mucous membranes Eyes: Sclera: sclerae normal Pupils: Equal, round and reactive pupils present EOM: EOMs intact bilaterally Neck: Neck: supple and no JVD ( obese neck, difficult to evaluate) Thyroid: thyroid normal Carotids: no bruits Lymphatic: lymphadenopathy not noted Other: cannot assess venous distention given his body habitus Resp: Effort & Inspection: normal respiratory effort Auscultation: clear to auscultation bilaterally, rales (Rales 1/3 up bilat) and diminished lung sounds ( both bases) Other: breath sounds are distant but essentially clear I do not hear any rales or wheezing Cardio: Rate: regular rate Rhythm: regular rhythm and abnormal rhythm irregularly irregular Heart sounds: no murmurs Other: PMI of course is nonpalpable no obvious cardiac murmur GI: Inspection: distended Auscultation: normal bowel sounds Skin: Wounds: wounds noted Other: RLE still very erythematous; cellulitis is draining. Neuro: General: No confusion Cranial nerves: Yes Equal, round and reactive pupils present Cognition (Neuro): normal cognition Speech: normal speech Extrem: General: edema and pedal edema Other: massive bilateral lower extremity edema with weeping and evidence of cellulitis in the right lower extremity Psych: Mental Status: mental status grossly normal Affect: normal affect Objective Data Vital Signs Vital Signs: Vital Signs - 24 hr 02/19/21 08:00 02/19/21 08:36 02/19/21 08:37 Temperature 37.0 C Pulse Rate 61 66 67 Respiratory Rate 20 Blood Pressure 139/62 Pulse Oximetry 97 02/19/21 10:00 02/19/21 12:00 02/19/21 14:00 Temperature 36.2 C L Pulse Rate 78 62 63 Respiratory Rate 20 Blood Pressure 116/63 Pulse Oximetry 97 02/19/21 16:00 02/19/21 17:26 02/19/21 18:00 Temperature 37.2 C Pulse Rate 51 L 69 63 Respiratory Rate 22 H Blood Pressure 145/79 H Pulse Oximetry 97 02/19/21 20:00 02/19/21 21:15 02/19/21 21:45 Temperature 36.5 C Pulse Rate 67 70 Respiratory Rate 20 Blood Pressure 137/53 L Pulse Oximetry 98 98 02/19/21 22:00 02/20/21 00:00 02/20/21 00:34 Temperature 36.6 C Pulse Rate 65 73
[2021-02-20 08:50] LABS: Glucose Point of Care 121 mg/dl (65-105)
[2021-02-20] MEDS: SERTRALINE HCL 50 MG TABLET PO (09:26)
[2021-02-20] MEDS: POTASSIUM CHLORIDE 20 MEQ TABLET 40 MEQ PO ×2 (09:26→20:58)
[2021-02-20] MEDS: GABAPENTIN 300 MG CAPSULE PO (09:26)
[2021-02-20] MEDS: metOLazone 5 MG TABLET PO (09:26)
[2021-02-20] MEDS: AMIODARONE HCL 200 MG TABLET PO (09:27)
[2021-02-20] MEDS: RIVAROXABAN 20 MG TABLET PO (09:27)
[2021-02-20] MEDS: acetaZOLAMIDE TAB 250 MG TABLET 500 MG PO (09:27)
[2021-02-20] MEDS: hydrALAZINE HCL 50 MG TABLET PO (09:27)
[2021-02-20] MEDS: OLMESARTAN MEDOXOMIL 20 MG TABLET 40 MG PO (09:28)
[2021-02-20] MEDS: PANTOPRAZOLE 40 MG TABLET PO (09:28)
[2021-02-20] MEDS: CHOLECALCIFEROL 1,000 UNITS TABLET 2000 UNITS PO (09:28)
[2021-02-20] MEDS: ASPIRIN 81 MG ENTERIC TABLET PO (09:28)
[2021-02-20] MEDS: METOPROLOL TARTRATE 50 MG TAB 100 MG PO (09:28)
[2021-02-20] MEDS: BUMETANIDE INJ 1 MG/4 ML VIAL IV PUSH (09:28)
[2021-02-20] MEDS: ATORVASTATIN 40 MG TABLET PO (09:28)
[2021-02-20] MEDS: SPIRONOLACTONE 25 MG TABLET PO (09:29)
--- NOTE | 2021-02-20 11:35 | PM.PNNEP ---
Progress Note: A&P Assessment and Plan (1) VALENCIA (acute kidney injury): Code(s): N17.9 - Acute kidney failure, unspecified Status: Acute Assessment and Plan: the patient has acute kidney injury. Await old records. Certainly has an element of acute kidney injury. Renal ultrasound is unremarkable urine electrolytes are pre renal. Urine protein is only around 300 so is not contributing to the swelling. CPK was normal Possible causes of the higher creatinine include: Acute tubular necrosis from the cellulitis. pre renal azotemia from 3rd spacing and diuretics he was on meloxicam before he came into the hospital Creatinine is a little higher today. Most likely this is related to his diuretics. will cut back a little bit on the diuretics. He still has a ways to go with the swelling. CO2 is a little high. On Diamox Creatinine may go up a little bit again tomorrow because he already got the metolazone today (2) Cellulitis of leg: Qualifiers: Laterality: right Qualified Code(s): L03.115 - Cellulitis of right lower limb Code(s): L03.119 - Cellulitis of unspecified part of limb Status: Acute Assessment and Plan: He is on vancomycin and Primaxin. He is afebrile. White count is still elevated. (3) Lymphedema: Code(s): I89.0 - Lymphedema, not elsewhere classified Status: Acute Assessment and Plan: Not much protein in the urine so this is not contributing. Cardiac issues a possible contributing factor The patient was on a dihydropyridine calcium channel calli. He is now off this. his blood pressure is doing okay off of the amlodipine. (4) Paroxysmal atrial fibrillation: Code(s): I48.0 - Paroxysmal atrial fibrillation Status: Acute Assessment and Plan: Heart rate doing well in the 70s and 80s (5) Hypertension: Code(s): I10 - Essential (primary) hypertension Status: Acute Assessment and Plan: blood pressure target at 140-160 for now. BP in the 120s today. Will cut hydralazine to 25 t.i.d. (6) Coronary artery disease: Code(s): I25.10 - Atherosclerotic heart disease of [place] coronary artery without angina pectoris Status: Acute Assessment and Plan: no chest pain or shortness of breath. Cardiology on the case. (7) Insulin dependent type 2 diabetes mellitus: Code(s): E11.9 - Type 2 diabetes mellitus without complications; Z79.4 - [facility] (current) use of insulin Status: Acute Assessment and Plan: On Accu-Cheks and sliding-scale insulin. (8) Hyperlipidemia: Code(s): E78.5 - Hyperlipidemia, unspecified Status: Acute Assessment and Plan: on atorvastatin Subjective Date/time seen: 02/20/21 11:35 Interval history: Carlton is Sitting up in a chair. His feet are elevated. No chest pain or shortness of Breath he is making lots of urine. His edema feels better to him. Exam Narrative: WDWN in NAD skin no rash head ncat lungs clear anteriorly, decreased breath sounds at the bases. cor reg no rub or gallop abd BS+ nontender and soft ext 2+ bilateral edema. Objective Data Vital Signs Vital Signs: Vital Signs - 24 hr 02/19/21 12:00 02/19/21 14:00 02/19/21 16:00 Temperature 36.2 C L 37.2 C Pulse Rate 62 63 51 L Respiratory Rate 20 22 H Blood Pressure 116/63 145/79 H Pulse Oximetry 97 97 02/19/21 17:26 02/19/21 18:00 02/19/21 20:00 Temperature 36.5 C Pulse Rate 69 63 67 Respiratory Rate 20 Blood Pressure 137/53 L Pulse Oximetry 98 02/19/21 21:15 02/19/21 21:45 02/19/21 22:00 Temperature Pulse Rate 70 65 Respiratory Rate Blood Pressure Pulse Oximetry 98 02/20/21 00:00 02/20/21 00:34 02/20/21 02:00 Temperature 36.6 C Pulse Rate 73 54 L 55 L Respiratory Rate 21 H 18 Blood Pressure 120/64 Pulse Oximetry 98 02/20/21
[2021-02-20 12:33] LABS: Glucose Point of Care 199 mg/dl (65-105)
[2021-02-20] MEDS: hydrALAZINE HCL 25 MG TABLET PO (15:10)
[2021-02-20 17:07] LABS: Glucose Point of Care 151 mg/dl (65-105)
--- NOTE | 2021-02-20 17:13 | PM.IMPN ---
Progress Note: A&P Assessment and Plan (1) Cellulitis of right leg: Code(s): L03.115 - Cellulitis of right lower limb Status: Acute Assessment and Plan: -wound care consult -Continue carbapenem and vancomycin - negative venous Doppler study - if no improvement will consider ID consult (2) VALENCIA (acute kidney injury): Code(s): N17.9 - Acute kidney failure, unspecified Status: Acute Assessment and Plan: - worsening kidney injury with aggressive diuresis, we may need to slow down on diuresis expect in the setting of contraction alkalosis - Dr. Gómez nephrology following - renal ultrasound: normal kidneys without hydronephrosis (3) CKD stage 3 due to type 2 diabetes mellitus: Code(s): E11.22 - Type 2 diabetes mellitus with diabetic chronic kidney disease; N18.30 - Chronic kidney disease, stage 3 unspecified Status: Acute (4) Acute on chronic diastolic CHF (congestive heart failure): Code(s): I50.33 - Acute on chronic diastolic (congestive) heart failure Status: Acute Assessment and Plan: chest x-ray showing cardiomegaly (5) Elevated troponin: Code(s): R77.8 - Other specified abnormalities of plasma proteins Status: Acute Assessment and Plan: cardiology believes likely related to overloaded state. patient has no chest pain and his symptoms appear to be from his obesity hypoventilation syndrome causing right heart failure. is under control with amiodarone (6) Morbid obesity: Code(s): E66.01 - Morbid (severe) obesity due to excess calories Status: Acute Assessment and Plan: patient will need weight loss plan (7) Lymphedema: Code(s): I89.0 - Lymphedema, not elsewhere classified Status: Acute Assessment and Plan: wound care consult patient will need lymphedema therapy (8) Paroxysmal atrial fibrillation: Code(s): I48.0 - Paroxysmal atrial fibrillation Status: Acute Assessment and Plan: cardiology consult, recommended patient may need follow-up with Dr. Wallace for cardioversion -Continue DOAC for anticoagulation - patient was recently started on amiodarone (9) Obstructive sleep apnea on CPAP: Code(s): G47.33 - Obstructive sleep apnea (adult) (pediatric); Z99.89 - Dependence on other enabling machines and devices Status: Acute Assessment and Plan: CPAP at night (10) Hyperlipidemia: Code(s): E78.5 - Hyperlipidemia, unspecified Status: Acute (11) Hypertension: Code(s): I10 - Essential (primary) hypertension Status: Acute Assessment and Plan: with diuretics and adding Diamox stopping hydralazine and Norvasc. nurse reported blood pressure in the 90s systolic, will watch closely, we may be over diuresing (12) Insulin dependent type 2 diabetes mellitus: Code(s): E11.9 - Type 2 diabetes mellitus without complications; Z79.4 - intermediate (current) use of insulin Status: Acute Assessment and Plan: goal glucose less than 200 - sliding scale insulin coverage - hemoglobin A1c 6.6 -Hypoglycemia protocol, Accu-Cheks a.c. HS (13) Coronary artery disease: Code(s): I25.10 - Atherosclerotic heart disease of [place] coronary artery without angina pectoris Status: Acute Assessment and Plan: continue aspirin, statin (14) Pulmonary congestion: Code(s): R09.89 - Other specified symptoms and signs involving the circulatory and respiratory systems Status: Acute Assessment and Plan: continuing diuretics, adjusted diuretics with contraction alkalosis adding Diamox (15) Hypokalemia: Code(s): E87.6 - Hypokalemia Status: Acute Assessment and Plan: potassium 3.2 on 02/20/2021, in the setting of AFib will replete to greater than 4, giving 40 x2 mEq p.o. potassium today Additional Plan code status: Full code Disposition: Pending clinical course, will watch bloo
[2021-02-20] MEDS: SODIUM CHLORIDE 0.9% IV 500 ML IV CONT (18:05)
[2021-02-20 21:43] LABS: Glucose Point of Care 195 mg/dl (65-105)
[2021-02-21] VITALS (17 sets, daily range): BP systolic 90–144; BP diastolic 40–74; PULSE 60–98; RESP 14–20; TEMP 36.6–37.1; O2SAT 97–100; BMI 54.4
[2021-02-21 07:11] LABS: Basophils Percent Auto 0.2 % (0.2-1.2); Eosinophils Percent Auto 0.2 % (0-4.4); Hematocrit 39.7 % (42.0-52.0); Hemoglobin 12.3 g/dL (14.0-18.0); Immature Granulocyte Absolute 0.44 K/mm3 (0.00-0.031); Immature Granulocyte Percent A 4.4 % (0-0.5); Lymphocytes Absolute Auto 0.98 K/mm3 (0.9-3.2); Lymphocytes Percent Auto 9.8 % (18.3-44.2); Mean Corpuscular Hemoglobin 26.9 pg (26-34); Mean Corpuscular Volume 86.9 fl (80-100); Mean Platelet Volume 10.8 fl (7.4-10.4); Neutrophils Absolute Auto 7.6 K/mm3 (1.3-6.7); Neutrophils Percent Auto 75.4 % (45.5-73.1); Platelet Count Result 208 k/mm3 (150-375); Red Blood Count 4.57 M/mm3 (4.6-6.20); White Blood Count 10.1 K/mm3 (4.5-10.0)
[2021-02-21 07:20] LABS: Albumin Level 2.6 g/dL (3.5-5.1); Anion Gap 9 mmol/L (8-16); Blood Urea Nitrogen 51 mg/dL (9-20); Calcium 8.2 mg/dL (8.4-10.2); Carbon Dioxide 30 mmol/L (22-30); Chloride 93 mmol/L (98-107); Estimated CRCL calculation 38 ml/min; Estimated Glomerular Filt Rate 22; Glucose 138 mg/dL (65-110); Potassium 3.8 mmol/L (3.4-5.0); Sodium 132 mmol/L (137-145)
[2021-02-21 08:15] LABS: Glucose Point of Care 131 mg/dl (65-105)
--- NOTE | 2021-02-21 09:48 | PM.IMPN ---
Progress Note: A&P Assessment and Plan (1) VALENCIA (acute kidney injury): Code(s): N17.9 - Acute kidney failure, unspecified Status: Acute Assessment and Plan: creatinine increased to 2.9 may be from over-diuresis, watching closely. nephrology consulted (2) Cellulitis of right leg: Code(s): L03.115 - Cellulitis of right lower limb Status: Acute Assessment and Plan: continue IV antibiotics, white blood cell count has come down to 10,000. he appears to be responding to the antibiotics. Will continue IV antibiotics while inpatient. (3) Hypertension: Code(s): I10 - Essential (primary) hypertension Status: Acute Assessment and Plan: Patient blood pressure dropped to 90 systolic, nephrology would like blood pressure is 1 40s to 160s to for renal perfusion. We will adjust his medications continue diuretics as is because of his fluid overload. We will do half of the metoprolol and olmesartan and continue follow blood pressures. Metoprolol decreased to 50 mg p.o. q.12 hours, olmesartan cut down to 20 mg daily. (4) Paroxysmal atrial fibrillation: Code(s): I48.0 - Paroxysmal atrial fibrillation Status: Acute Assessment and Plan: continue amiodarone, cutting metoprolol to 50 mg q.12 hours, he had an episode of heart rate in the 50s yesterday and with his hypotension we will cut down on his metoprolol and watch his heart rate and blood pressure. (5) CKD stage 3 due to type 2 diabetes mellitus: Code(s): E11.22 - Type 2 diabetes mellitus with diabetic chronic kidney disease; N18.30 - Chronic kidney disease, stage 3 unspecified Status: Acute Assessment and Plan: nephrology consult for CKD, also has an acute kidney injury on top (6) Acute on chronic diastolic CHF (congestive heart failure): Code(s): I50.33 - Acute on chronic diastolic (congestive) heart failure Status: Acute Assessment and Plan: continue IV diuresis, heart healthy diet with fluid restriction. we will watch his blood pressures and continue diuresis as is with Diamox and Bumex and spirolactone. Yesterday he had dose of metolazone however he became hypotensive and so we have stop metolazone. patient also was on have contraction alkalosis from the diuresis which may be playing a role his hypotension. Diamox was started which we will continue. (7) Elevated troponin: Code(s): R77.8 - Other specified abnormalities of plasma proteins Status: Acute Assessment and Plan: likely related heart failure, no active chest pain (8) Morbid obesity: Code(s): E66.01 - Morbid (severe) obesity due to excess calories Status: Acute Assessment and Plan: will need a weight loss plan (9) Lymphedema: Code(s): I89.0 - Lymphedema, not elsewhere classified Status: Acute Assessment and Plan: patient will need lymphedema therapy for his peripheral edema (10) Obstructive sleep apnea on CPAP: Code(s): G47.33 - Obstructive sleep apnea (adult) (pediatric); Z99.89 - Dependence on other enabling machines and devices Status: Acute Assessment and Plan: Continue CPAP at night (11) Hyperlipidemia: Code(s): E78.5 - Hyperlipidemia, unspecified Status: Acute Assessment and Plan: continue statin (12) Insulin dependent type 2 diabetes mellitus: Code(s): E11.9 - Type 2 diabetes mellitus without complications; Z79.4 - [employer] (current) use of insulin Status: Acute Assessment and Plan: A1c 6.6 Hypoglycemia protocol, Accu-Cheks a.c. HS continue insulin pump and carb counting (13) Coronary artery disease: Code(s): I25.10 - Atherosclerotic heart disease of [place] coronary artery without angina pectoris Status: Acute Assessment and Plan: as above, continue aspirin statin Additional Plan code status full code Disposition: Pending clinical course continue IV a
[2021-02-21] MEDS: AMIODARONE HCL 200 MG TABLET PO (10:01)
[2021-02-21] MEDS: SERTRALINE HCL 50 MG TABLET PO (10:02)
[2021-02-21] MEDS: OLMESARTAN MEDOXOMIL 20 MG TABLET PO (10:02)
[2021-02-21] MEDS: PANTOPRAZOLE 40 MG TABLET PO ×2 (10:02→16:09)
[2021-02-21] MEDS: ATORVASTATIN 40 MG TABLET PO (10:02)
[2021-02-21] MEDS: acetaZOLAMIDE TAB 250 MG TABLET 500 MG PO (10:02)
[2021-02-21] MEDS: SPIRONOLACTONE 25 MG TABLET PO (10:03)
[2021-02-21] MEDS: CHOLECALCIFEROL 1,000 UNITS TABLET 2000 UNITS PO (10:03)
[2021-02-21] MEDS: METOPROLOL TARTRATE 50 MG TAB PO ×2 (10:03→20:56)
[2021-02-21] MEDS: BUMETANIDE INJ 1 MG/4 ML VIAL IV PUSH (10:04)
[2021-02-21] MEDS: GABAPENTIN 300 MG CAPSULE PO ×2 (10:04→16:09)
[2021-02-21] MEDS: ASPIRIN 81 MG ENTERIC TABLET PO (10:04)
[2021-02-21] MEDS: RIVAROXABAN 20 MG TABLET PO (10:04)
--- NOTE | 2021-02-21 10:39 | PM.PNNEP ---
Progress Note: A&P Assessment and Plan (1) VALENCIA (acute kidney injury): Code(s): N17.9 - Acute kidney failure, unspecified Status: Acute Assessment and Plan: the patient has acute kidney injury. Await old records. Certainly has an element of acute kidney injury. Renal ultrasound is unremarkable urine electrolytes are pre renal. Urine protein is only around 300 so is not contributing to the swelling. CPK was normal Possible causes of the higher creatinine include: Acute tubular necrosis from the cellulitis. pre renal azotemia from 3rd spacing and diuretics he was on meloxicam before he came into the hospital Creatinine is a little higher today. \ Last night he dropped his pressure. Blood pressure meds were held. He is also on metolazone, Bumetanide, Diamox, and spironolactone. Will stop all but the Bumetanide right now. I think he does better when his blood pressure is 1 40-160 (2) Cellulitis of leg: Qualifiers: Laterality: right Qualified Code(s): L03.115 - Cellulitis of right lower limb Code(s): L03.119 - Cellulitis of unspecified part of limb Status: Acute Assessment and Plan: He is on vancomycin and Primaxin. He is afebrile. White count is still elevated. (3) Lymphedema: Code(s): I89.0 - Lymphedema, not elsewhere classified Status: Acute Assessment and Plan: Not much protein in the urine so this is not contributing. Cardiac issues a possible contributing factor most likely due to venous and lymphatic insufficiency. (4) Paroxysmal atrial fibrillation: Code(s): I48.0 - Paroxysmal atrial fibrillation Status: Acute Assessment and Plan: Heart rate doing well in the 70s and 80s (5) Hypertension: Code(s): I10 - Essential (primary) hypertension Status: Acute Assessment and Plan: blood pressure target at 140-160 for now. BP in the 120s today. Now off blood pressure meds. (6) Coronary artery disease: Code(s): I25.10 - Atherosclerotic heart disease of [place] coronary artery without angina pectoris Status: Acute Assessment and Plan: no chest pain or shortness of breath. Cardiology on the case. (7) Insulin dependent type 2 diabetes mellitus: Code(s): E11.9 - Type 2 diabetes mellitus without complications; Z79.4 - jail (current) use of insulin Status: Acute Assessment and Plan: On Accu-Cheks and sliding-scale insulin. (8) Hyperlipidemia: Code(s): E78.5 - Hyperlipidemia, unspecified Status: Acute Assessment and Plan: on atorvastatin Subjective Date/time seen: 02/21/21 10:39 Interval history: Lying in bed comfortably. No chest pain or shortness of Breath Intake/ output is still negative. Exam Narrative: WDWN in NAD skin no rash head ncat lungs clear anteriorly, decreased breath sounds at the bases. cor reg no rub or gallop abd BS+ nontender and soft ext 2+ bilateral edema. Objective Data Vital Signs Vital Signs: Vital Signs - 24 hr 02/20/21 12:00 02/20/21 14:00 02/20/21 16:00 Temperature 36.1 C L 36.8 C Pulse Rate 12 L 65 71 Respiratory Rate 12 18 Blood Pressure 102/66 97/76 L Pulse Oximetry 100 100 02/20/21 17:50 02/20/21 18:00 02/20/21 18:54 Temperature Pulse Rate 70 Respiratory Rate Blood Pressure 76/48 L 103/58 L Pulse Oximetry 02/20/21 19:42 02/20/21 20:00 02/20/21 21:52 Temperature 37.0 C Pulse Rate 63 59 L 63 Respiratory Rate 19 19 16 Blood Pressure 105/67 Pulse Oximetry 97 97 97 02/20/21 22:00 02/21/21 00:00 02/21/21 02:00 Temperature 37.1 C Pulse Rate 62 68 66 Respiratory Rate 16 Blood Pressure 111/69 Pulse Oximetry 97 02/21/21 04:00 02/21/21 06:00 02/21/21 08:00 Temperature 37.1 C 36.6 C Pulse Rate 64 67 83 Respiratory Rate 19 16 Blood Pressure 108/74 144/69 H Pulse Oxi
[2021-02-21] MEDS: ACETAMINOPHEN 325 MG TABLET 650 MG PO (11:05)
[2021-02-21 11:22] LABS: Glucose Point of Care 199 mg/dl (65-105)
--- NOTE | 2021-02-21 12:53 | PCDIET ---
Weekly nutritional screen. Patient is tolerating current diet with adequate intake. No weight loss reported. No nutritional needs at this time.
[2021-02-21 16:33] LABS: Glucose Point of Care 207 mg/dl (65-105)
--- NOTE | 2021-02-21 17:10 | PM.PNCARD ---
Progress Note: A&P Assessment and Plan (1) Acute on chronic diastolic CHF (congestive heart failure): Code(s): I50.33 - Acute on chronic diastolic (congestive) heart failure Status: Acute Assessment and Plan: Patient has severe volume overload and moderate CHF on his chest x-ray. Recommend we treat his blood pressure and continue IV diuretics. Not diuresing much. 1800 cc fluid restriction Agree with discontinuation of Diamox, Spironolactone, and metolazone for now. Continue Bumex. Hold Olmesartan for now. Until BP and renal function stabilized. (2) Atrial fibrillation: Qualifiers: Atrial fibrillation type: unspecified Qualified Code(s): I48.91 - Unspecified atrial fibrillation Code(s): I48.91 - Unspecified atrial fibrillation Status: Acute Assessment and Plan: Recent onset of atrial fib /flutter, rate controlled w/ po amiodarone.. continue metoprolol. Holding metoprolol likely to have little impact on BP stabilization. Anticoagulated with Xarelto. Again, dose adjustment due to renal failure appropriate. Will reduce to 15 mg at this time. Eventual cardioversion planned. However he has only been on Xarelto and amiodarone for 1 week and will be preferable for him to be on it longer prior to a cardioversion. If he is not doing well we can consider a MARTIN guided cardioversion prior to discharge. Otherwise stick with the plan made by Dr. Wallace, to re-evaluate and plan a cardioversion in the future. (3) CKD stage 3 due to type 2 diabetes mellitus: Code(s): E11.22 - Type 2 diabetes mellitus with diabetic chronic kidney disease; N18.30 - Chronic kidney disease, stage 3 unspecified Status: Acute Assessment and Plan: acute on chronic renal failure patient is only 3.6 L negative per documentation throughout this hospitalization. hypotension this complicating matters. I would hold almost start in for now allow BP to improve and permit effective diuresis. This need to reduce Xarelto to at least 15 mg daily although alternative may be needed if renal function continues to deteriorate. Discontinue meloxicam Daily BMP (4) Hypertension: Code(s): I10 - Essential (primary) hypertension Status: Acute Assessment and Plan: patient now intermittently hypotensive. (5) Elevated troponin: Code(s): R77.8 - Other specified abnormalities of plasma proteins Status: Acute Assessment and Plan: Patient has developed elevated troponins but doubt ACS. However, my feeling is he has had gradual worsening of CHF and this is not an ACS event. There are no ischemic EKG changes. I think the troponin spill was related to his hypertension, tachycardia, and hypoxemia. (6) Coronary artery disease: Code(s): I25.10 - Atherosclerotic heart disease of [place] coronary artery without angina pectoris Status: Acute Assessment and Plan: CABG X 5 2001, all arterial grafts. All grafts patent by cath 2016. Remains on aspirin in addition to Xarelto. (7) Cellulitis of right leg: Code(s): L03.115 - Cellulitis of right lower limb Status: Acute Assessment and Plan: Woke up with shaking and chills, has a very high white count. Blood cultures negative so far. On antibiotics. (8) Obstructive sleep apnea on CPAP: Code(s): G47.33 - Obstructive sleep apnea (adult) (pediatric); Z99.89 - Dependence on other enabling machines and devices Status: Acute Assessment and Plan: Compliant With CPAP. (9) Lymphedema: Code(s): I89.0 - Lymphedema, not elsewhere classified Status: Acute Assessment and Plan: Chronic lymphedema, worsened recently. (10) Morbid o
[2021-02-21 21:14] LABS: Glucose Point of Care 290 mg/dl (65-105)
[2021-02-22] VITALS (19 sets, daily range): BP systolic 103–126; BP diastolic 44–77; PULSE 53–98; RESP 16–24; TEMP 35.7–37.2; O2SAT 90–99
[2021-02-22 05:17] LABS: Basophils Percent Auto 0.2 % (0.2-1.2); Eosinophils Percent Auto 0.1 % (0-4.4); Hematocrit 37.6 % (42.0-52.0); Hemoglobin 11.7 g/dL (14.0-18.0); Immature Granulocyte Absolute 0.34 K/mm3 (0.00-0.031); Immature Granulocyte Percent A 4.1 % (0-0.5); Lymphocytes Absolute Auto 0.86 K/mm3 (0.9-3.2); Lymphocytes Percent Auto 10.4 % (18.3-44.2); Mean Corpuscular HGB Conc 31.1 g/dl (32-36); Mean Corpuscular Hemoglobin 26.7 pg (26-34); Mean Corpuscular Volume 85.8 fl (80-100); Mean Platelet Volume 11.2 fl (7.4-10.4); Monocytes Absolute Auto 0.7 K/mm3 (0.1-0.6); Monocytes Percent Auto 8.4 % (2.6-8.5); Neutrophils Absolute Auto 6.4 K/mm3 (1.3-6.7); Neutrophils Percent Auto 76.8 % (45.5-73.1); Platelet Count Result 208 k/mm3 (150-375); Red Blood Count 4.38 M/mm3 (4.6-6.20); Red Cell Distribution Width 16.7 % (11.5-14.5); White Blood Count 8.3 K/mm3 (4.5-10.0)
[2021-02-22 05:29] LABS: Albumin Level 2.4 g/dL (3.5-5.1); Anion Gap 9 mmol/L (8-16); Blood Urea Nitrogen 55 mg/dL (9-20); Calcium 8.1 mg/dL (8.4-10.2); Carbon Dioxide 28 mmol/L (22-30); Chloride 91 mmol/L (98-107); Estimated CRCL calculation 37 ml/min; Estimated Glomerular Filt Rate 22; Glucose 182 mg/dL (65-110); Potassium 3.5 mmol/L (3.4-5.0); Sodium 128 mmol/L (137-145)
[2021-02-22 08:39] LABS: Glucose Point of Care 156 mg/dl (65-105)
--- NOTE | 2021-02-22 08:57 | PM.PNCARD ---
Progress Note: A&P Additional Plan 65-year-old man with: Morbid obesity sleep apnea volume overload and development of atrial fibrillation of recent onset. Patient is on amiodarone and is anticoagulated has good heart rate control and is otherwise asymptomatic. His volume overload state has been improved but he still has quite a bit of edema I. It seems obvious we are not going to be able to resolve all of this because he is now experiencing worsening renal function and his diuretics have been reduced and his ARB has been placed on hold. For now his Bumex is being continued and he needs to practice lower extremity elevation as much as possible. His functional capacity is obviously very poor but I do not believe there is any additional cardiac recommendations to make at this time Alon Dalal MD [facility] Subjective Date/time seen: 02/22/21 08:57 Interval history: Follow-up visit in this 65-year-old man with: Atrial fibrillation of recent onset had been started on amiodarone by his established vice president quality assurance within the last couple of weeks. Also systemically anticoagulated. Admitted to [facility] with significant volume overload. patient is in no distress. At bedrest staying he is now extremely weak to the point where he can't even stand up. No longer experiencing dyspnea. Exam Narrative: sitting in chair, awake, alert appears more fatigued but pleasant cooperative. Responses slightly delayed but appropriate. at bedside. Const: General: comfortable, no acute distress and confusion Orientation/consciousness: confusion Other: Morbidlyobese gentleman seated in the chair comfortable but with weeping bilateral lower extremity edema HENMT: General nose exam: no epistaxis Mouth: Yes moist mucous membranes Eyes: Sclera: sclerae normal Pupils: Equal, round and reactive pupils present EOM: EOMs intact bilaterally Neck: Neck: supple and no JVD ( obese neck, difficult to evaluate) Thyroid: thyroid normal Carotids: no bruits Lymphatic: lymphadenopathy not noted Other: cannot assess venous distention given his body habitus Resp: Effort & Inspection: normal respiratory effort Auscultation: clear to auscultation bilaterally, rales (Rales 1/3 up bilat) and diminished lung sounds ( both bases) Other: breath sounds are distant but essentially clear I do not hear any rales or wheezing Cardio: Rate: regular rate Rhythm: regular rhythm and abnormal rhythm irregularly irregular Heart sounds: no murmurs Other: PMI of course is nonpalpable no obvious cardiac murmur GI: Inspection: distended Auscultation: normal bowel sounds Skin: Wounds: wounds noted Other: RLE still very erythematous; cellulitis is draining. Neuro: General: confusion Cranial nerves: Yes Equal, round and reactive pupils present Cognition (Neuro): normal cognition Speech: normal speech Extrem: General: edema and pedal edema Other: massive bilateral lower extremity edema with weeping and evidence of cellulitis in the right lower extremity Psych: Mental Status: mental status grossly normal Affect: normal affect Objective Data Vital Signs Vital Signs: Vital Signs - 24 hr 02/21/21 10:00 02/21/21 10:01 02/21/21 10:03 Temperature Pulse Rate 73 72 76 Respiratory Rate Blood Pressure Pulse Oximetry 02/21/21 12:00 02/21/21 13:45 02/21/21 14:00 Temperature 36.6 C Pulse Rate 68 70 Respiratory Rate 16 Blood Pressure 113/55 L 90/50 L Pulse Oximetry 98 02/21/21 16:00 02/21/21 18:00 02/21/21 20:00 Temperature 37.1 C 36.8 C Pulse Rate 67 66 75 Respiratory Rate 14 18 Blood Pressure 123/60 102/40 L Pulse Oximetry 98 100 02/21/21 20:56 02/21/21 22:00 02/21/21 23:48 Temperature 36.6 C Pulse Rate 67 71 64 Respiratory Rate 20 Blood Pressure 105/50 L Pulse Oximetry 99 02/22/21 00:00 02/22/21 02:00 02/22/21 02:06 Temperature Pulse Rate 64 59 L 57 L Respiratory Rate 20 17 Blood Pressure
[2021-02-22] MEDS: AMIODARONE HCL 200 MG TABLET PO ×2 (09:05→16:54)
[2021-02-22] MEDS: PANTOPRAZOLE 40 MG TABLET PO ×2 (09:07→16:55)
[2021-02-22] MEDS: ASPIRIN 81 MG ENTERIC TABLET PO (09:07)
[2021-02-22] MEDS: CHOLECALCIFEROL 1,000 UNITS TABLET 2000 UNITS PO (09:07)
[2021-02-22] MEDS: GABAPENTIN 300 MG CAPSULE PO ×2 (09:08→16:55)
[2021-02-22] MEDS: ATORVASTATIN 40 MG TABLET PO (09:08)
[2021-02-22] MEDS: SERTRALINE HCL 50 MG TABLET PO (09:09)
[2021-02-22] MEDS: METOPROLOL TARTRATE 50 MG TAB PO (09:09)
[2021-02-22] MEDS: BUMETANIDE INJ 1 MG/4 ML VIAL IV PUSH ×2 (09:11→16:36)
--- NOTE | 2021-02-22 09:27 | PM.PNNEP ---
Progress Note: A&P Assessment and Plan (1) VALENCIA (acute kidney injury): Code(s): N17.9 - Acute kidney failure, unspecified Status: Acute Assessment and Plan: the patient has acute kidney injury. Await old records. Certainly has an element of acute kidney injury. Renal ultrasound is unremarkable urine electrolytes are pre renal. Urine protein is only around 300 so is not contributing to the swelling. CPK was normal Possible causes of the higher creatinine include: Acute tubular necrosis from the cellulitis. pre renal azotemia from 3rd spacing and diuretics he was on meloxicam before he came into the hospital Creatinine is stable blood pressure was better overnight. Currently on Bumex as the only diuretic. He is on a small dose of metoprolol. will reduce metoprolol since heart rate is okay. Continue diuretics continue antibiotics check a renal panel in the morning (2) Cellulitis of leg: Qualifiers: Laterality: right Qualified Code(s): L03.115 - Cellulitis of right lower limb Code(s): L03.119 - Cellulitis of unspecified part of limb Status: Acute Assessment and Plan: He is on Primaxin. He is afebrile. White count is down to 8.3 (3) Lymphedema: Code(s): I89.0 - Lymphedema, not elsewhere classified Status: Acute Assessment and Plan: Not much protein in the urine so this is not contributing. Cardiac issues a possible contributing factor most likely due to venous and lymphatic insufficiency. (4) Paroxysmal atrial fibrillation: Code(s): I48.0 - Paroxysmal atrial fibrillation Status: Acute Assessment and Plan: Heart rate doing well in the 70s and 80s (5) Hypertension: Code(s): I10 - Essential (primary) hypertension Status: Acute Assessment and Plan: blood pressure is certainly not too high. It was a bit soft night before last. Holding off on blood pressure meds except for metoprolol which he needs for rate control. His heart rate is only 57 today. Will cut the metoprolol down to allow his blood pressure to be a little higher (6) Coronary artery disease: Code(s): I25.10 - Atherosclerotic heart disease of [place] coronary artery without angina pectoris Status: Acute Assessment and Plan: no chest pain or shortness of breath. Cardiology on the case. (7) Insulin dependent type 2 diabetes mellitus: Code(s): E11.9 - Type 2 diabetes mellitus without complications; Z79.4 - technician terminal and repeater (current) use of insulin Status: Acute Assessment and Plan: On Accu-Cheks and sliding-scale insulin. (8) Hyperlipidemia: Code(s): E78.5 - Hyperlipidemia, unspecified Status: Acute Assessment and Plan: on atorvastatin Subjective Date/time seen: 02/22/21 09:27 Interval history: Lying in bed comfortably. Still swollen. Intake/ output is negative by 340cc Exam Narrative: WDWN in NAD skin no rash or subcu nodules head ncat lungs clear anteriorly, decreased breath sounds at the bases. cor reg no rub or gallop abd BS+ nontender and soft ext 2+ bilateral edema. Objective Data Vital Signs Vital Signs: Vital Signs - 24 hr 02/21/21 10:00 02/21/21 10:01 02/21/21 10:03 Temperature Pulse Rate 73 72 76 Respiratory Rate Blood Pressure Pulse Oximetry 02/21/21 12:00 02/21/21 13:45 02/21/21 14:00 Temperature 36.6 C Pulse Rate 68 70 Respiratory Rate 16 Blood Pressure 113/55 L 90/50 L Pulse Oximetry 98 02/21/21 16:00 02/21/21 18:00 02/21/21 20:00 Temperature 37.1 C 36.8 C Pulse Rate 67 66 75 Respiratory Rate 14 18 Blood Pressure 123/60 102/40 L Pulse Oximetry 98 100 02/21/21 20:56 02/21/21 22:00 02/21/21 23:48 Temperature 36.6 C Pulse Rate 67 71 64 Respiratory Rate 20 Blood Pressure 105/50 L Pulse Oximetry 99 02/22/21 00:00
[2021-02-22 11:56] LABS: Glucose Point of Care 203 mg/dl (65-105)
--- NOTE | 2021-02-22 16:17 | PM.IMPN ---
Progress Note: A&P Assessment and Plan (1) Acute renal failure superimposed on stage 3b chronic kidney disease: Qualifiers: Acute renal failure type: unspecified Qualified Code(s): N17.9 - Acute kidney failure, unspecified; N18.32 - Chronic kidney disease, stage 3b Code(s): N17.9 - Acute kidney failure, unspecified; N18.32 - Chronic kidney disease, stage 3b Status: Acute Assessment and Plan: - creatinine rising up to 2.9, acute on chronic CKD secondary to diuresis and hypertension. We have cut back on her diuretics significantly in blood pressure medications. Metoprolol down to 25 mg b.i.d. and diuretics at Bumex 1 mg b.i.d.. with elevated creatinine Arb has been held as well as Diamox - I appreciate recommendations of nephrology consult (2) Hypertension: Qualifiers: Hypertension type: primary hypertension Qualified Code(s): I10 - Essential (primary) hypertension Code(s): I10 - Essential (primary) hypertension Status: Acute Assessment and Plan: will cut back blood pressure medications as patient is becoming hypotensive With diuresis. beta-calli for the cut down to 25 mg q.12 hours for (3) Paroxysmal atrial fibrillation: Code(s): I48.0 - Paroxysmal atrial fibrillation Status: Acute Assessment and Plan: - heart is rate controlled doing well on lower doses of metoprolol, patient had heart rate in the 50s, metoprolol cut down to 25 mg - cardiology following, with no problems on telemetry (4) Acute on chronic diastolic CHF (congestive heart failure): Code(s): I50.33 - Acute on chronic diastolic (congestive) heart failure Status: Acute Assessment and Plan: acute on chronic diastolic heart failure exacerbation, patient has been weaned off of oxygen, likely over the acute phase. Only on Bumex, stopped metolazone and Diamox and spironolactone with hypotension and renal failure. (5) Lymphedema: Code(s): I89.0 - Lymphedema, not elsewhere classified Status: Acute Assessment and Plan: patient will need lymphedema therapy for his lower extremity edema (6) Obstructive sleep apnea on CPAP: Code(s): G47.33 - Obstructive sleep apnea (adult) (pediatric); Z99.89 - Dependence on other enabling machines and devices Status: Acute Assessment and Plan: continue CPAP at night Additional Plan code status: Full code Disposition: will transition patient to med/surg with telemetry, discharge planning pending clinical course Social: updated bedside Time Spent With Patient Time with patient: 15 - 25 minutes Subjective Date/time seen: 02/22/21 16:17. patient examined he has been giving worsening VALENCIA so his diuretics and blood pressure medications held. Patient is clinically feeling weaker and not able to ambulate on his own. He has been moved up to chair by PT. He is to continue the have seeping draining wound on right lower extremity which is still very tender to palpation. He is continuing to have net negative fluid balance. I reviewed nephrology and cardiology recommendations. Only medication active for diuresis is Bumex 1 mg IV b.i.d.. His spironolactone, olmesartan, and Diamox have been stopped. He is not having any problems with telemetry With his heart rhythm. He is on amiodarone And metoprolol which he is tolerating well. We can downgrade him to med/surg with tele. patient denies fever, chills, nausea, vomiting, diarrhea. He endorses generalized weakness and fatigue , right lower extremity pain. Review of Systems Review of Systems: All systems reviewed & are unremarkable except as noted in HPI and below Exam Narrative: - GENERAL: Obese pleasant gentleman breathing comfortably on room air - EYES: EOMI. Anicteric. - HENT: Moist mucous membranes. - LUNGS: clear in the apices diminished in lung bases - CARDIOVASCULAR: Regular rate and rhythm. No murmur. - ABDOMEN: Soft, non-tender, ob
[2021-02-22] MEDS: RIVAROXABAN 15 MG TABLET PO (16:55)
[2021-02-22 17:19] LABS: Glucose Point of Care 139 mg/dl (65-105)
[2021-02-22] MEDS: METOPROLOL TARTRATE 25 MG TABLET PO (20:59)
[2021-02-22 21:05] LABS: Glucose Point of Care 183 mg/dl (65-105)
[2021-02-23] VITALS (11 sets, daily range): BP systolic 116–143; BP diastolic 54–85; PULSE 58–69; RESP 16–20; TEMP 35.6–36.7; O2SAT 93–99
[2021-02-23 05:13] LABS: Basophils Percent Auto 0.3 % (0.2-1.2); Eosinophils Percent Auto 0.1 % (0-4.4); Hematocrit 35.8 % (42.0-52.0); Hemoglobin 11.6 g/dL (14.0-18.0); Immature Granulocyte Absolute 0.26 K/mm3 (0.00-0.031); Immature Granulocyte Percent A 2.7 % (0-0.5); Lymphocytes Absolute Auto 0.93 K/mm3 (0.9-3.2); Lymphocytes Percent Auto 9.7 % (18.3-44.2); Mean Corpuscular HGB Conc 32.4 g/dl (32-36); Mean Corpuscular Hemoglobin 27.2 pg (26-34); Mean Platelet Volume 11.1 fl (7.4-10.4); Monocytes Absolute Auto 0.8 K/mm3 (0.1-0.6); Monocytes Percent Auto 7.9 % (2.6-8.5); Neutrophils Absolute Auto 7.6 K/mm3 (1.3-6.7); Neutrophils Percent Auto 79.3 % (45.5-73.1); Platelet Count Result 209 k/mm3 (150-375); Red Blood Count 4.26 M/mm3 (4.6-6.20); Red Cell Distribution Width 16.4 % (11.5-14.5); White Blood Count 9.6 K/mm3 (4.5-10.0)
[2021-02-23 05:26] LABS: Estimated CRCL calculation 37 ml/min; Estimated Glomerular Filt Rate 22
[2021-02-23 05:28] LABS: Alanine Aminotransferase 26 U/L (4-50); Albumin Level 2.5 g/dL (3.5-5.1); Alkaline Phosphatase 117 U/L (38-126); Anion Gap 8 mmol/L (8-16); Aspartate Amino Transferase 35 U/L (17-59); Bilirubin,Total 0.7 mg/dL (0.2-1.3); Blood Urea Nitrogen 60 mg/dL (9-20); Calcium 8.1 mg/dL (8.4-10.2); Carbon Dioxide 28 mmol/L (22-30); Chloride 91 mmol/L (98-107); Estimated CRCL calculation 36 ml/min; Estimated Glomerular Filt Rate 21; Glucose 110 mg/dL (65-110); Phosphorus 5.3 mg/dL (2.5-4.5); Potassium 3.3 mmol/L (3.4-5.0); Sodium 127 mmol/L (137-145)
--- NOTE | 2021-02-23 06:24 | PC.NURSE ---
This patient, Carlton Perkins, was received from [imu [id number] ] on 02/23/21 at 0624. Patient/family oriented to unit policies and routines
[2021-02-23 07:37] LABS: Glucose Point of Care 133 mg/dl (65-105)
[2021-02-23] MEDS: POTASSIUM CHLORIDE 20 MEQ TABLET 40 MEQ PO (08:39)
[2021-02-23] MEDS: ATORVASTATIN 40 MG TABLET PO (08:40)
[2021-02-23] MEDS: SERTRALINE HCL 50 MG TABLET PO (08:40)
[2021-02-23] MEDS: METOPROLOL TARTRATE 25 MG TABLET PO ×2 (08:40→20:00)
[2021-02-23] MEDS: AMIODARONE HCL 200 MG TABLET PO ×2 (08:40→16:26)
[2021-02-23] MEDS: CHOLECALCIFEROL 1,000 UNITS TABLET 2000 UNITS PO (08:40)
[2021-02-23] MEDS: GABAPENTIN 300 MG CAPSULE PO ×2 (08:40→16:26)
[2021-02-23] MEDS: ASPIRIN 81 MG ENTERIC TABLET PO (08:41)
[2021-02-23] MEDS: PANTOPRAZOLE 40 MG TABLET PO ×2 (08:41→16:28)
[2021-02-23] MEDS: BUMETANIDE INJ 1 MG/4 ML VIAL IV PUSH ×2 (08:41→16:25)
[2021-02-23 12:01] LABS: Glucose Point of Care 184 mg/dl (65-105)
--- NOTE | 2021-02-23 13:44 | PM.IMPN ---
Progress Note: A&P Assessment and Plan (1) Acute renal failure superimposed on stage 3b chronic kidney disease: Qualifiers: Acute renal failure type: unspecified Qualified Code(s): N17.9 - Acute kidney failure, unspecified; N18.32 - Chronic kidney disease, stage 3b Code(s): N17.9 - Acute kidney failure, unspecified; N18.32 - Chronic kidney disease, stage 3b Status: Acute Assessment and Plan: continue minimizing diuretics as he was getting volume depleted, likely prerenal etiology of renal failure. Creatinine stable at 2.9 slightly better than yesterday (2) Acute on chronic diastolic CHF (congestive heart failure): Code(s): I50.33 - Acute on chronic diastolic (congestive) heart failure Status: Acute Assessment and Plan: patient has been diuresed to room air. Will continue to monitor his heart failure medications and react as tolerated watching his blood pressure. continue Bumex 1 mg b.i.d.. (3) Cellulitis of right leg: Code(s): L03.115 - Cellulitis of right lower limb Status: Acute Assessment and Plan: right lower extremity cellulitis appears to be the same in erythema and tenderness despite being on appropriate antibiotics vancomycin and imipenem. consulting Infectious Disease Dr. Wilkerson. also obtain ABIs for assessing blood flow. we are unable to do angiogram with creatinine (4) Morbid obesity: Code(s): E66.01 - Morbid (severe) obesity due to excess calories Status: Acute Assessment and Plan: patient will need weight loss plan in the future (5) Lymphedema: Code(s): I89.0 - Lymphedema, not elsewhere classified Status: Acute Assessment and Plan: patient will need lymphedema therapy PT consulted (6) Paroxysmal atrial fibrillation: Code(s): I48.0 - Paroxysmal atrial fibrillation Status: Acute Assessment and Plan: no problems with this laboratory, heart rate appears to be stable. continue amiodarone and low-dose metoprolol. heart rate seems to be stable on this lower dose Additional Plan code status: Full code DVT prophylaxis: Xarelto Disposition: med/surg with telemetry, discharge planning pending clinical course Social: updated bedside Subjective Date/time seen: 02/23/21 13:44 Patient examined. He feels much better today with us holding some of his blood pressure meds. He still has a net fluid negative today last 24 hours of -1390 despite cutting back on his diuretics. His blood pressure is stable 116/66 this noon. creatinine is also starting to down trend. he denies fever, chills, nausea, vomiting, diarrhea. We discussed consulting Infectious Disease for right lower extremity cellulitis as he is still having erythema and pain despite being on appropriate antibiotics. Review of Systems Review of Systems: All systems reviewed & are unremarkable except as noted in HPI and below Exam Narrative: - GENERAL: Obese pleasant gentleman breathing comfortably on room air - EYES: EOMI. Anicteric. - HENT: Moist mucous membranes. - LUNGS: clear in the apices diminished in lung bases - CARDIOVASCULAR: Regular rate and rhythm. No murmur. - ABDOMEN: Soft, non-tender, obese. No palpable masses. - EXTREMITIES: 3+ pitting edema. right lower extremity with purulence drainage of multiple lesions, erythema is unilateral on the right lower extremity. Warm to touch, tender to light palpation. right lower extremity wounds appear to be the same despite antibiotics. Be states he has had vascular work up in the past - NEUROLOGIC: No focal neurological deficits. CN II-XII grossly intact. - PSYCHIATRIC: Awake, Alert and oriented x 3. Appropriate mood and affect. - SKIN: As above - LYMPH: No cervical lymphadenopathy. Objective Data Vital Signs Vital Signs: Vital Signs - 24 hr 02/22/21 14:00 02/22/21 16:00 02/22/21 16:30 Temperature 35.7 C L Pulse Rate 61 67 66 Respiratory Rate 20 Blood Pres
--- NOTE | 2021-02-23 14:36 | PM.PNNEP ---
Progress Note: A&P Assessment and Plan (1) VALENCIA (acute kidney injury): Code(s): N17.9 - Acute kidney failure, unspecified Status: Acute Assessment and Plan: the patient has acute kidney injury. Await old records. Certainly has an element of acute kidney injury. Renal ultrasound is unremarkable urine electrolytes are pre renal. Urine protein is only around 300 so is not contributing to the swelling. CPK was normal Possible causes of the higher creatinine include: Acute tubular necrosis from the cellulitis. pre renal azotemia from 3rd spacing and diuretics he was on meloxicam before he came into the hospital Creatinine is stable blood pressure was better overnight. Currently on Bumex as the only diuretic. He is on a small dose of metoprolol. his urine output has improved quite a bit since his blood pressure is high. And as above, he also feels better with the higher blood pressure. Will try midodrine to augment this effect. (2) Cellulitis of leg: Qualifiers: Laterality: right Qualified Code(s): L03.115 - Cellulitis of right lower limb Code(s): L03.119 - Cellulitis of unspecified part of limb Status: Acute Assessment and Plan: He is on Primaxin. He is afebrile. White count is down to 8.3 (3) Lymphedema: Code(s): I89.0 - Lymphedema, not elsewhere classified Status: Acute Assessment and Plan: Not much protein in the urine so this is not contributing. Cardiac issues a possible contributing factor most likely due to venous and lymphatic insufficiency. (4) Paroxysmal atrial fibrillation: Code(s): I48.0 - Paroxysmal atrial fibrillation Status: Acute Assessment and Plan: Heart rate doing well in the 70s and 80s (5) Hypertension: Qualifiers: Hypertension type: primary hypertension Qualified Code(s): I10 - Essential (primary) hypertension Code(s): I10 - Essential (primary) hypertension Status: Acute Assessment and Plan: blood pressure is certainly not too high. This does seem to be a little better. Probably a reasonable goal would be a systolic of 130-160 (6) Coronary artery disease: Code(s): I25.10 - Atherosclerotic heart disease of [place] coronary artery without angina pectoris Status: Acute Assessment and Plan: no chest pain or shortness of breath. Cardiology on the case. (7) Insulin dependent type 2 diabetes mellitus: Code(s): E11.9 - Type 2 diabetes mellitus without complications; Z79.4 - care home (current) use of insulin Status: Acute Assessment and Plan: On Accu-Cheks and sliding-scale insulin. (8) Hyperlipidemia: Code(s): E78.5 - Hyperlipidemia, unspecified Status: Acute Assessment and Plan: on atorvastatin Subjective Date/time seen: 02/23/21 14:36 Interval history: Sitting up in a chair. Still swollen. Still a little bit of weeping. He is eating well he was able to stand up in work a little bit with physical therapy today. He feels like the Reji blood pressure has helped him. Exam Narrative: WDWN in NAD skin no rash or subcu nodules head ncat lungs clear anteriorly, decreased breath sounds at the bases. cor reg no rub or gallop abd BS+ nontender and soft ext 2+ bilateral edema. Still some weeping Objective Data Vital Signs Vital Signs: Vital Signs - 24 hr 02/22/21 16:00 02/22/21 16:30 02/22/21 16:54 Temperature 35.7 C L Pulse Rate 67 66 73 Respiratory Rate 20 Blood Pressure 111/44 L Pulse Oximetry 97 02/22/21 20:00 02/22/21 20:59 02/22/21 22:00 Temperature 36.9 C Pulse Rate 77 72 67 Respiratory Rate 24 H Blood Pressure 125/58 L Pulse Oximetry 94 02/23/21 00:00 02/23/21 02:00 02/23/21 04:00 Temperature 36.5 C 36.7 C Pulse Rate 59 L 64 59 L Respiratory Rate 20 20 Blood Pressure 143/61
--- NOTE | 2021-02-23 16:14 | PM.PNCARD ---
Progress Note: A&P Assessment and Plan (1) Acute on chronic diastolic CHF (congestive heart failure): Code(s): I50.33 - Acute on chronic diastolic (congestive) heart failure Status: Acute Assessment and Plan: Presented with CHF and volume overload - Continue diuresing with Bumex - On moderate dose of metoprolol - monitor BP, has been hypotensive (2) Atrial fibrillation: Qualifiers: Atrial fibrillation type: unspecified Qualified Code(s): I48.91 - Unspecified atrial fibrillation Code(s): I48.91 - Unspecified atrial fibrillation Status: Acute Assessment and Plan: Recent onset of atrial fib /flutter, rate controlled w/ po amiodarone.. continue metoprolol. Holding metoprolol likely to have little impact on BP stabilization. Anticoagulated with Xarelto. Again, dose adjustment due to renal failure appropriate. Will reduce to 15 mg at this time. Eventual cardioversion planned. However he has only been on Xarelto and amiodarone for 1 week and will be preferable for him to be on it longer prior to a cardioversion. If he is not doing well we can consider a MARTIN guided cardioversion prior to discharge. Otherwise stick with the plan made by Dr. Wallace, to re-evaluate and plan a cardioversion in the future. (3) CKD stage 3 due to type 2 diabetes mellitus: Code(s): E11.22 - Type 2 diabetes mellitus with diabetic chronic kidney disease; N18.30 - Chronic kidney disease, stage 3 unspecified Status: Acute Assessment and Plan: Acute on chronic renal failure. Renal u/s unremarkable. Urine electrolytes are pre-renal. Urine output improving with higher blood pressures - patient 5L negative per documentation throughout this hospitalization. Continue diuresis w/ Bumex. Nephrology following - appreciate their input (4) Hypertension: Qualifiers: Hypertension type: primary hypertension Qualified Code(s): I10 - Essential (primary) hypertension Code(s): I10 - Essential (primary) hypertension Status: Acute Assessment and Plan: patient now intermittently hypotensive. (5) Elevated troponin: Code(s): R77.8 - Other specified abnormalities of plasma proteins Status: Acute Assessment and Plan: Patient has developed elevated troponins but doubt ACS. However, my feeling is he has had gradual worsening of CHF and this is not an ACS event. There are no ischemic EKG changes. I think the troponin spill was related to his hypertension, tachycardia, and hypoxemia. (6) Coronary artery disease: Code(s): I25.10 - Atherosclerotic heart disease of [place] coronary artery without angina pectoris Status: Acute Assessment and Plan: CABG X 5 2001, all arterial grafts. All grafts patent by cath 2016. Remains on aspirin in addition to Xarelto. (7) Cellulitis of right leg: Code(s): L03.115 - Cellulitis of right lower limb Status: Acute Assessment and Plan: Woke up with shaking and chills, has a very high white count. Blood cultures negative so far. On antibiotics NATHALIE's indicative of occlusive arterial disease. (8) Obstructive sleep apnea on CPAP: Code(s): G47.33 - Obstructive sleep apnea (adult) (pediatric); Z99.89 - Dependence on other enabling machines and devices Status: Acute Assessment and Plan: Compliant With CPAP. (9) Lymphedema: Code(s): I89.0 - Lymphedema, not elsewhere classified Status: Acute Assessment and Plan: Chronic lymphedema, worsened recently. (10) Morbid obesity: Code(s): E66.01 - Morbid (severe) obesity due to excess calories Status: Acute Assessment and Plan: Lifestyle modification
[2021-02-23] MEDS: RIVAROXABAN 15 MG TABLET PO (16:27)
[2021-02-23] MEDS: MIDODRINE HCL 10 MG TABLET PO (16:27)
[2021-02-23 16:36] LABS: Glucose Point of Care 156 mg/dl (65-105)
[2021-02-23] MEDS: ACETAMINOPHEN 325 MG TABLET 650 MG PO (20:09)
[2021-02-23 20:21] LABS: Glucose Point of Care 200 mg/dl (65-105)
[2021-02-24] VITALS (13 sets, daily range): BP systolic 126–178; BP diastolic 63–97; PULSE 55–81; RESP 14–20; TEMP 35.9–36.8; O2SAT 97–99
[2021-02-24 06:11] LABS: Albumin Level 2.5 g/dL (3.5-5.1); Anion Gap 8 mmol/L (8-16); Blood Urea Nitrogen 58 mg/dL (9-20); Calcium 7.9 mg/dL (8.4-10.2); Carbon Dioxide 29 mmol/L (22-30); Chloride 92 mmol/L (98-107); Estimated CRCL calculation 40 ml/min; Estimated Glomerular Filt Rate 24; Glucose 124 mg/dL (65-110); Phosphorus 4.9 mg/dL (2.5-4.5); Potassium 3.3 mmol/L (3.4-5.0); Sodium 129 mmol/L (137-145)
[2021-02-24 08:29] LABS: Glucose Point of Care 126 mg/dl (65-105)
[2021-02-24] MEDS: AMIODARONE HCL 200 MG TABLET PO ×2 (08:54→17:17)
[2021-02-24] MEDS: ATORVASTATIN 40 MG TABLET PO (08:55)
[2021-02-24] MEDS: MIDODRINE HCL 10 MG TABLET PO ×3 (08:55→17:17)
[2021-02-24] MEDS: GABAPENTIN 300 MG CAPSULE PO ×2 (08:55→17:18)
[2021-02-24] MEDS: SERTRALINE HCL 50 MG TABLET PO (08:55)
[2021-02-24] MEDS: BUMETANIDE INJ 1 MG/4 ML VIAL IV PUSH ×2 (08:55→17:18)
[2021-02-24] MEDS: CHOLECALCIFEROL 1,000 UNITS TABLET 2000 UNITS PO (08:55)
[2021-02-24] MEDS: ASPIRIN 81 MG ENTERIC TABLET PO (08:55)
[2021-02-24] MEDS: METOPROLOL TARTRATE 25 MG TABLET PO (08:55)
[2021-02-24] MEDS: PANTOPRAZOLE 40 MG TABLET PO ×2 (08:56→17:18)
--- NOTE | 2021-02-24 10:10 | PM.PNNEP ---
Progress Note: A&P Assessment and Plan (1) VALENCIA (acute kidney injury): Code(s): N17.9 - Acute kidney failure, unspecified Status: Acute Assessment and Plan: the patient has acute kidney injury. Await old records. Certainly has an element of acute kidney injury. Renal ultrasound is unremarkable urine electrolytes are pre renal. Urine protein is only around 300 so is not contributing to the swelling. CPK was normal Possible causes of the higher creatinine include: Acute tubular necrosis from the cellulitis. pre renal azotemia from 3rd spacing and diuretics he was on meloxicam before he came into the hospital Creatinine is a little improved. Intake/output is negative by about 1700cc Potassium is a little low. Will add spironolactone back into the mix. (2) Cellulitis of leg: Qualifiers: Laterality: right Qualified Code(s): L03.115 - Cellulitis of right lower limb Code(s): L03.119 - Cellulitis of unspecified part of limb Status: Acute Assessment and Plan: He is on Primaxin. He is afebrile. White count is down to 8.3 (3) Lymphedema: Code(s): I89.0 - Lymphedema, not elsewhere classified Status: Acute Assessment and Plan: Not much protein in the urine so this is not contributing. Cardiac issues a possible contributing factor most likely due to venous and lymphatic insufficiency. (4) Paroxysmal atrial fibrillation: Code(s): I48.0 - Paroxysmal atrial fibrillation Status: Acute Assessment and Plan: Heart rate doing well in the 70s and 80s On metoprolol and amiodarone patient has coronary disease status post bypass so is still on metoprolol (5) Hypertension: Qualifiers: Hypertension type: primary hypertension Qualified Code(s): I10 - Essential (primary) hypertension Code(s): I10 - Essential (primary) hypertension Status: Acute Assessment and Plan: blood pressure is certainly not too high. This does seem to be a little better. Probably a reasonable goal would be a systolic of 130-160 (6) Coronary artery disease: Code(s): I25.10 - Atherosclerotic heart disease of [place] coronary artery without angina pectoris Status: Acute Assessment and Plan: no chest pain or shortness of breath. Cardiology on the case. (7) Insulin dependent type 2 diabetes mellitus: Code(s): E11.9 - Type 2 diabetes mellitus without complications; Z79.4 - assisted (current) use of insulin Status: Acute Assessment and Plan: On Accu-Cheks and sliding-scale insulin. (8) Hyperlipidemia: Code(s): E78.5 - Hyperlipidemia, unspecified Status: Acute Assessment and Plan: on atorvastatin Subjective Date/time seen: 02/24/21 10:10 Interval history: Resting comfortably in bed. Says he feels better overall. Leg is not as painful. Exam Narrative: WDWN in NAD skin no rash or subcu nodules head ncat lungs clear anteriorly, decreased breath sounds at the bases. cor reg no rub or gallop abd BS+ nontender and soft ext 2+ bilateral edema. Still some weeping Objective Data Vital Signs Vital Signs: Vital Signs - 24 hr 02/23/21 12:00 02/23/21 16:00 02/23/21 16:26 Temperature 35.7 C L 35.9 C L Pulse Rate 66 60 66 Respiratory Rate 20 20 Blood Pressure 116/66 118/54 L Pulse Oximetry 98 98 02/23/21 19:53 02/23/21 20:00 02/23/21 23:38 Temperature 35.6 C L Pulse Rate 69 69 64 Respiratory Rate 16 16 Blood Pressure 138/75 Pulse Oximetry 97 94 02/24/21 00:00 02/24/21 04:00 02/24/21 08:00 Temperature 36.6 C 35.9 C L 36.7 C Pulse Rate 62 63 62 Respiratory Rate 16 14 16 Blood Pressure 127/66 126/63 135/85 Pulse Oximetry 97 99 98 02/24/21 08:54 02/24/21 08:55 Temperature Pulse Rate 62 62 Respiratory Rate Blood Pressure Pulse Oximetry Intake/Output Intake
--- NOTE | 2021-02-24 10:34 | WPDINFPN2 ---
Progress Note: A&P Assessment and Plan (1) Cellulitis of right leg: Code(s): L03.115 - Cellulitis of right lower limb Status: Acute Assessment and Plan: Streptococcus cellulitis RLE REC Clinda 7 days, see lymphedema clinic again. Call if Qs Subjective Date/time seen: 02/24/21 10:34 Objective Data Vital Signs Vital Signs: Vital Signs - 24 hr 02/23/21 12:00 02/23/21 16:00 02/23/21 16:26 Temperature 35.7 C L 35.9 C L Pulse Rate 66 60 66 Respiratory Rate 20 20 Blood Pressure 116/66 118/54 L Pulse Oximetry 98 98 02/23/21 19:53 02/23/21 20:00 02/23/21 23:38 Temperature 35.6 C L Pulse Rate 69 69 64 Respiratory Rate 16 16 Blood Pressure 138/75 Pulse Oximetry 97 94 02/24/21 00:00 02/24/21 04:00 02/24/21 08:00 Temperature 36.6 C 35.9 C L 36.7 C Pulse Rate 62 63 62 Respiratory Rate 16 14 16 Blood Pressure 127/66 126/63 135/85 Pulse Oximetry 97 99 98 02/24/21 08:54 02/24/21 08:55 Temperature Pulse Rate 62 62 Respiratory Rate Blood Pressure Pulse Oximetry Intake/Output Intake/Output: Intake & Output 02/21/21 02/22/21 02/23/21 02/24/21 23:59 23:59 23:59 23:59 Intake Total 1220 1260 1360 440 Output Total 1000 2400 2950 1300 Balance 220 -0670 -0160 -860 Meds/Results Medications: Active Medications Generic Name Dose Route Start Last Admin Trade Name Freq PRN Reason Stop Dose Admin Acetaminophen 650 mg 02/17/21 11:50 02/23/21 20:09 Acetaminophen 325 Mg Tablet PO 650 mg Q6H PRN Administration Mild Pain (1-3) or Fever Amiodarone HCl 200 mg 02/15/21 08:00 02/24/21 08:54 Amiodarone Hcl 200 Mg Tablet PO 200 mg BIDWM PIYUSH Administration Aspirin 81 mg 02/15/21 09:00 02/24/21 08:55 Aspirin 81 Mg Enteric Tablet PO 81 mg QAM PIYUSH Administration Atorvastatin Calcium 40 mg 02/15/21 09:00 02/24/21 08:55 Atorvastatin 40 Mg Tablet PO 40 mg DAILY PIYUSH Administration Bumetanide 1 mg 02/17/21 17:00 02/24/21 08:55 Bumetanide Inj 1 Mg/4 Ml Vial IV PUSH 1 mg BID PIYUSH Administration Clindamycin HCl 300 mg 02/24/21 14:00 Clindamycin Hcl 150 Mg Cap PO 03/03/21 06:01 Q8HR PIYUSH Dextrose 12.5 gm 02/15/21 00:58 Dextrose 50% 25 Gm/50 Ml Syringe IV PUSH PRN PRN Hypoglycemia Protocol Gabapentin 300 mg 02/15/21 09:00 02/24/21 08:55 Gabapentin 300 Mg Capsule PO 03/17/21 09:01 300 mg BID PIYUSH Administration Glucagon 1 mg 02/15/21 00:58 Glucagon For Inj 1 Mg Vial IM PRN PRN Hypoglycemia Protocol Glucose 15 gm 02/15/21 00:58 02/16/21 06:07 Glucose Oral Gel 15 Gm Of Glucse In 37.5 Gm Tube PO 15 gm PRN PRN Administration Hypoglycemia Protocol Dextrose 1,000 mls @ 100 mls/hr 02/15/21 00:58 Dextrose 5% 1,000 Ml IVPB PRN PRN Hypoglycemia Protocol Vancomycin HCl 2,000 mg in 500 mls @ 250 mls/hr 02/24/21 09:00 02/24/21 09:43 Vancomycin 2,000 Mg/D5w 500 Ml IVPB 02/24/21 10:59 250 mls/hr ONCE ONE Administration Metoprolol Tartrate 25 mg 02/22/21 21:00 02/24/21 08:55 Metoprolol Tartrate 25 Mg Tablet PO 25 mg Q12HR PIYUSH Administration Midodrine 10 mg 02/23/21 17:00 02/24/21 08:55 Midodrine Hcl 10 Mg Tablet PO 10 mg TID PIYUSH Administration Ondansetron HCl 4 mg 02/14/21 13:39 02/14/21 14:05 Ondansetron Inj 4 Mg/2 Ml Vial IV PUSH 4 mg Q6H PRN Administration Nausea And Vomiting Oxycodone/Acetaminophen 1 tablet 02/17/21 11:50 Oxycodone/Acetaminophen (*Crx) 5-325 Mg Tablet PO Q6H PRN Pain Rated 7-10 Pantoprazole Sodium 40 mg 02/15/21 09:00 02/24/21 08:56 Pantoprazole 40 Mg Tablet PO 40 mg BID PIYUSH Administration Rivaroxaban 15 mg 02/21/21 17:25 02/23/21 16:27 Rivaroxaban 15 Mg Tablet PO 15 mg DAILY@1700 PIYUSH Administration Sertraline HCl 50 mg 02/15/21 09:00 02/24/21 08:55 Sertraline Hcl 50 Mg Tablet PO 50 mg DAILY PIYUSH Administration Vit
[2021-02-24 12:21] LABS: Glucose Point of Care 186 mg/dl (65-105)
--- NOTE | 2021-02-24 13:41 | CONS_ITS ---
DATE OF CONSULTATION: 02/24/2021 REASON FOR CONSULTATION: Cellulitis, right leg. HISTORY OF PRESENT ILLNESS: 65-year-old male who has chronic lymphedema. He attended a lymphedema clinic about a year ago in [place] and was given 2 separate types of devices for relief. He has not had a followup appointment. He has had no previous cellulitis. He presented to the hospital on February 14 with shortness of breath, AF, chest tightness, and diaphoresis. He has been treated for AF, but was also found to have redness of the right leg, suspected cellulitis. He has been given imipenem and vancomycin. He has had no complications, but due to persistent exam abnormalities, consultation requested. His hospital course otherwise has been complicated by renal insufficiency, acute and chronic heart failure. He was on no antibiotics prior to admission. No fever, chills, or sweats prior to admission. No immunosuppressants systemically. He denies any known trauma. He has had some redness in the left ankle area, but largely on the right leg. His symptoms also include weeping, tingling and burning in the anterior davis. ALLERGIES: PENICILLIN CAUSED ITCHING IN THE DISTANT PAST. CURRENT MEDICATIONS: No systemic immunosuppressants. HABITS: No tobacco. No alcohol. PAST MEDICAL HISTORY: In addition to the above, CABG, lap band, rotator cuff repair, left total knee arthroplasty, SASHA, morbid obesity, hypertension, hyperlipidemia, peripheral neuropathy, prior stroke, and stage 3 chronic renal insufficiency. REVIEW OF SYSTEMS: 14-point review otherwise negative. FAMILY HISTORY: Not pertinent to his present illness. SOCIAL HISTORY: Lives in [place]. Walks with a cane. Is . is at the bedside. Retired [employer]. PHYSICAL EXAMINATION: GENERAL: Middle-aged male, who appears older than his actual age. No respiratory distress. VITAL SIGNS: Afebrile since arrival, 62, 135/85, 16, 98%. SKIN: No generalized rashes. Warm and dry. EENT: The conjunctivae are clear. The oral mucosa is also normal. Pupils equal, round, reactive to light. The oropharynx demonstrates no thrush. NECK: No masses, thyromegaly or meningismus. LUNGS: Clear to auscultation and percussion. CARDIAC: Regular rate and rhythm. Soft S1, S2. No murmurs or gallops. Radial pulses 2+, dorsalis pedis pulses 1+. ABDOMEN: Massively obese, which compromises exam. He has no tenderness. No distention. Normal bowel sounds. EXTREMITIES: He has some abrasions over the left ankle with minimal surrounding erythema. Over the right davis anteriorly and posteriorly, he has erythema, intradermal hematoma and ecchymosis, warmth, tenderness, and unroofed bullae. He has 3+ pitting and nonpitting edema to his feet. LABORATORY DATA: Blood cultures final, no growth. His white count originally 18.8, has been normal yesterday and prior day, hemoglobin 11.6, platelets are 209, minimal left shift on differential. Chemistries with hyponatremia. BUN 58, creatinine 2.7, glucose 126, calcium is 7.9, albumin, however, is also low at 2.5. Urinalysis, no evidence of infection. RADIOLOGY: NATHALIE is minimally decreased on the right, nondiagnostic on the left. Chest x-ray, cardiomegaly, no active disease. Echo Doppler, no evidence of infection. Renal ultrasound normal. ASSESSMENT: 1. Cellulitis of the right leg, classic appearance of a streptococcal infection. This could be Group ABCF or G. No positive blood cultures. He has no complications such as abscesses, osteomyelitis, necrotizing fasciitis. 2. Leukocytosis because of the above, resolved. 3. Lymphedema and morbid obesity, the proximate cause of his illness. 4. Penicillin allergy, tolerates carbapenem. 5. Diabetes mellitus. RECOMMENDATIONS: 1. Follow up w
[2021-02-24] MEDS: CLINDAMYCIN HCL 150 MG CAP 300 MG PO ×2 (15:36→21:02)
--- NOTE | 2021-02-24 16:32 | PM.IMPN ---
Progress Note: A&P Assessment and Plan (1) Acute renal failure superimposed on stage 3b chronic kidney disease: Qualifiers: Acute renal failure type: unspecified Qualified Code(s): N17.9 - Acute kidney failure, unspecified; N18.32 - Chronic kidney disease, stage 3b Code(s): N17.9 - Acute kidney failure, unspecified; N18.32 - Chronic kidney disease, stage 3b Status: Acute Assessment and Plan: Renal function improving, continue management with hardboard panel printer Dr. Gómez. We are restarting Aldactone today to help with the hypokalemia. (2) Hypokalemia: Code(s): E87.6 - Hypokalemia Status: Acute Assessment and Plan: Likely secondary to loop diuretics, giving 40mEq KCL today (3) VALENCIA (acute kidney injury): Code(s): N17.9 - Acute kidney failure, unspecified Status: Acute Assessment and Plan: may have been from ATN from hypoperfusion with multiple antihypertensives and diuretics. Other possibility is just prerenal from diuresis. We will continue to monitor. (4) Acute on chronic diastolic CHF (congestive heart failure): Code(s): I50.33 - Acute on chronic diastolic (congestive) heart failure Status: Acute Assessment and Plan: Continuing diuresis, patient is on room air breathing comfortably. (5) Cellulitis of right leg: Code(s): L03.115 - Cellulitis of right lower limb Status: Acute Assessment and Plan: Antibiotics changed to clindamycin PO, patient will follow-up with wound care clinic in [place], [place] and Dr. wilkerson infectious disease (6) Paroxysmal atrial fibrillation: Code(s): I48.0 - Paroxysmal atrial fibrillation Status: Acute Assessment and Plan: continue amiodarone, decreasing Lopressor to 12.5 mg b.i.d. as his heart rate is going down to 50s. Continue Xarelto for anticoagulation. Subjective Date/time seen: 02/24/21 16:32 Patient examined. He is doing well breathing comfortably on room air. He feels much better now has blood pressure is increased to normal tensive. Dr. Wilkerson infectious disease is consulted has change in antibiotics to clindamycin and recommends outpatient follow-up in Wound Care in [place], [place]. I discussed case with Dr. Gómez nephrology to have restart spironolactone and to start midodrine to help with blood pressure. Patient otherwise is continuing to diurese appropriately and kidney function is improving. patient denies fever, chills, nausea, vomiting, diarrhea, chest pain, abdominal pain. He he feels his right lower extremity cellulitis area is improving. Review of Systems Review of Systems: All systems reviewed & are unremarkable except as noted in HPI and below Exam Narrative: - GENERAL: Obese pleasant gentleman breathing comfortably on room air - EYES: EOMI. Anicteric. - HENT: Moist mucous membranes. - LUNGS: clear in the apices, diminished in lung bases - CARDIOVASCULAR: Regular rate and rhythm. No murmur. - ABDOMEN: Soft, non-tender, obese. No palpable masses. - EXTREMITIES: 3+ pitting edema. right lower extremity with purulence drainage of multiple lesions, erythema is unilateral on the right lower extremity. still warm, less tender than yesterday. - NEUROLOGIC: No focal neurological deficits. CN II-XII grossly intact. - PSYCHIATRIC: Awake, Alert and oriented x 3. Appropriate mood and affect. - SKIN: As above - LYMPH: No cervical lymphadenopathy. Objective Data Vital Signs Vital Signs: Vital Signs - 24 hr 02/23/21 19:53 02/23/21 20:00 02/23/21 23:38 Temperature 35.6 C L Pulse Rate 69 69 64 Respiratory Rate 16 16 Blood Pressure 138/75 Pulse Oximetry 97 94 02/24/21 00:00 02/24/21 04:00 02/24/21 08:00 Temperature 36.6 C 35.9 C L 36.7 C Pulse Rate 62 63 57 L Respiratory Rate 16 14 16 Blood Pressure 127/66 126/63 135/85 Pulse Oximetry 97 99 98 02/24/21 08:54 02/24/21 08:55 02/24/21 12:00 Temperature Pulse Rate 62 62 55 L Res
[2021-02-24] MEDS: SPIRONOLACTONE 25 MG TABLET PO (17:17)
[2021-02-24] MEDS: RIVAROXABAN 15 MG TABLET PO (17:18)
[2021-02-24] MEDS: POTASSIUM CHLORIDE 20 MEQ TABLET 40 MEQ PO (17:24)
[2021-02-24 18:13] LABS: Glucose Point of Care 156 mg/dl (65-105)
[2021-02-24] MEDS: METOPROLOL TARTRATE 12.5 MG TABLET PO (21:02)
[2021-02-25] VITALS (12 sets, daily range): BP systolic 128–149; BP diastolic 61–88; PULSE 62–94; RESP 18–20; TEMP 36.2–37.1; O2SAT 99–100
[2021-02-25] MEDS: CLINDAMYCIN HCL 150 MG CAP 300 MG PO ×3 (06:05→21:45)
[2021-02-25 06:14] LABS: Basophils Percent Auto 0.2 % (0.2-1.2); Eosinophils Percent Auto 0.1 % (0-4.4); Hematocrit 36.2 % (42.0-52.0); Hemoglobin 11.7 g/dL (14.0-18.0); Immature Granulocyte Absolute 0.21 K/mm3 (0.00-0.031); Immature Granulocyte Percent A 1.9 % (0-0.5); Lymphocytes Absolute Auto 1.05 K/mm3 (0.9-3.2); Lymphocytes Percent Auto 9.6 % (18.3-44.2); Mean Corpuscular HGB Conc 32.3 g/dl (32-36); Mean Corpuscular Volume 83.6 fl (80-100); Mean Platelet Volume 10.8 fl (7.4-10.4); Monocytes Absolute Auto 0.8 K/mm3 (0.1-0.6); Monocytes Percent Auto 7.5 % (2.6-8.5); Neutrophils Absolute Auto 8.9 K/mm3 (1.3-6.7); Neutrophils Percent Auto 80.7 % (45.5-73.1); Platelet Count Result 236 k/mm3 (150-375); Red Blood Count 4.33 M/mm3 (4.6-6.20); Red Cell Distribution Width 16.4 % (11.5-14.5)
[2021-02-25 06:24] LABS: Anion Gap 6 mmol/L (8-16); Blood Urea Nitrogen 56 mg/dL (9-20); Calcium 8.2 mg/dL (8.4-10.2); Carbon Dioxide 32 mmol/L (22-30); Chloride 92 mmol/L (98-107); Estimated CRCL calculation 41 ml/min; Estimated Glomerular Filt Rate 25; Glucose 110 mg/dL (65-110); Magnesium 2.3 mg/dL (1.6-2.3); Potassium 3.3 mmol/L (3.4-5.0); Sodium 130 mmol/L (137-145)
[2021-02-25 07:31] LABS: Glucose Point of Care 111 mg/dl (65-105)
[2021-02-25] MEDS: GABAPENTIN 300 MG CAPSULE PO ×2 (08:39→17:10)
[2021-02-25] MEDS: ASPIRIN 81 MG ENTERIC TABLET PO (08:39)
[2021-02-25] MEDS: AMIODARONE HCL 200 MG TABLET PO ×2 (08:40→17:09)
[2021-02-25] MEDS: ATORVASTATIN 40 MG TABLET PO (08:40)
[2021-02-25] MEDS: METOPROLOL TARTRATE 12.5 MG TABLET PO ×2 (08:40→21:45)
[2021-02-25] MEDS: BUMETANIDE INJ 1 MG/4 ML VIAL IV PUSH ×2 (08:40→17:09)
[2021-02-25] MEDS: PANTOPRAZOLE 40 MG TABLET PO ×2 (08:40→17:09)
[2021-02-25] MEDS: CHOLECALCIFEROL 1,000 UNITS TABLET 2000 UNITS PO (08:40)
[2021-02-25] MEDS: SERTRALINE HCL 50 MG TABLET PO (08:41)
[2021-02-25] MEDS: SPIRONOLACTONE 25 MG TABLET PO ×2 (08:41→17:09)
[2021-02-25] MEDS: MIDODRINE HCL 10 MG TABLET PO ×3 (08:41→17:09)
[2021-02-25 11:11] LABS: Glucose Point of Care 184 mg/dl (65-105)
--- NOTE | 2021-02-25 11:20 | PM.PNNEP ---
Progress Note: A&P Assessment and Plan (1) VALENCIA (acute kidney injury): Code(s): N17.9 - Acute kidney failure, unspecified Status: Acute Assessment and Plan: the patient has acute kidney injury. Await old records. Certainly has an element of acute kidney injury. Renal ultrasound is unremarkable urine electrolytes are pre renal. Urine protein is only around 300 so is not contributing to the swelling. CPK was normal Possible causes of the higher creatinine include: Acute tubular necrosis from the cellulitis. pre renal azotemia from 3rd spacing and diuretics he was on meloxicam before he came into the hospital Creatinine is a little improved. It looks like his kidneys are doing better since his swelling and cellulitic changes have improved. Intake/output is negative by about 2300cc Potassium is a little low. Will add spironolactone back into the mix. (2) Cellulitis of leg: Qualifiers: Laterality: right Qualified Code(s): L03.115 - Cellulitis of right lower limb Code(s): L03.119 - Cellulitis of unspecified part of limb Status: Acute Assessment and Plan: He is on Primaxin. He is afebrile. White count is down to 8.3 (3) Lymphedema: Code(s): I89.0 - Lymphedema, not elsewhere classified Status: Acute Assessment and Plan: Not much protein in the urine so this is not contributing. Cardiac issues a possible contributing factor most likely due to venous and lymphatic insufficiency. (4) Paroxysmal atrial fibrillation: Code(s): I48.0 - Paroxysmal atrial fibrillation Status: Acute Assessment and Plan: Heart rate doing well in the 70s and 80s On metoprolol and amiodarone patient has coronary disease status post bypass so is still on metoprolol (5) Hypertension: Qualifiers: Hypertension type: primary hypertension Qualified Code(s): I10 - Essential (primary) hypertension Code(s): I10 - Essential (primary) hypertension Status: Acute Assessment and Plan: blood pressure is ranging in a good place. Probably a reasonable goal would be a systolic of 130-160 (6) Coronary artery disease: Code(s): I25.10 - Atherosclerotic heart disease of [place] coronary artery without angina pectoris Status: Acute Assessment and Plan: no chest pain or shortness of breath. Cardiology on the case. 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 (8) Hyperlipidemia: Code(s): E78.5 - Hyperlipidemia, unspecified Status: Acute Assessment and Plan: on atorvastatin (9) BPH (benign prostatic hyperplasia): Code(s): N40.0 - Benign prostatic hyperplasia without lower urinary tract symptoms Status: Acute Assessment and Plan: The patient had prostatic symptoms. Will add tamsulosin and finasteride and try pulling catheter out on Saturday. Subjective Date/time seen: 02/25/21 11:20 Interval history: Resting comfortably in bed. Says he feels better overall. Leg is not is weepy. He has got some wrinkles forming as well. He has a catheter in. He says that he was getting up at night 3 times and during the day he would have to wear diapers because he could not make it very far without having to urinate. He never did see a urologist or complain about any of this to his doctor. Exam Narrative: WDWN in NAD skin no rash or subcu nodules head ncat lungs clear anteriorly, decreased breath sounds at the bases. cor reg no rub or gallop abd BS+ nontender and soft ext 2+ bilateral edema. 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 Objective Data Vital Signs Vital Signs: Vital Signs - 24 hr 02/24/21 12:00 02/24/21 13:04
[2021-02-25] MEDS: POTASSIUM CHLORIDE 20 MEQ TABLET 40 MEQ PO (12:09)
--- NOTE | 2021-02-25 12:13 | PM.IMPN ---
Progress Note: A&P Assessment and Plan (1) BPH (benign prostatic hyperplasia): Qualifiers: Lower urinary tract symptom presence: symptoms present Lower urinary tract symptom detail: urinary retention Qualified Code(s): N40.1 - Benign prostatic hyperplasia with lower urinary tract symptoms; R33.8 - Other retention of urine Code(s): N40.0 - Benign prostatic hyperplasia without lower urinary tract symptoms Status: Acute Assessment and Plan: Discussed with nephrology, starting Flomax and Proscar. Plan to remove Lenz catheter soon (2) Acute renal failure superimposed on stage 3b chronic kidney disease: Qualifiers: Acute renal failure type: unspecified Qualified Code(s): N17.9 - Acute kidney failure, unspecified; N18.32 - Chronic kidney disease, stage 3b Code(s): N17.9 - Acute kidney failure, unspecified; N18.32 - Chronic kidney disease, stage 3b Status: Acute Assessment and Plan: Slowly improving, creatinine down to 3.6. Will continue medications as is. (3) Hypokalemia: Code(s): E87.6 - Hypokalemia Status: Acute Assessment and Plan: Potassium 3.3, giving 40 mEq potassium chloride today. (4) CKD stage 3 due to type 2 diabetes mellitus: Code(s): E11.22 - Type 2 diabetes mellitus with diabetic chronic kidney disease; N18.30 - Chronic kidney disease, stage 3 unspecified Status: Acute Assessment and Plan: As above (5) Acute on chronic diastolic CHF (congestive heart failure): Code(s): I50.33 - Acute on chronic diastolic (congestive) heart failure Status: Acute Assessment and Plan: Continue IV diuresis Bumex, which he is tolerating well with appropriate blood pressure (6) Cellulitis of right leg: Code(s): L03.115 - Cellulitis of right lower limb Status: Acute Assessment and Plan: Transition to clindamycin yesterday, plan for outpatient follow-up at wound care clinic in [place], [place] (7) Paroxysmal atrial fibrillation: Code(s): I48.0 - Paroxysmal atrial fibrillation Status: Acute Assessment and Plan: With asymptomatic bradycardia, beta-calli was reduced to 12.5 mg b.i.d. yesterday which he is tolerating well. Today normal heart rate. Continue anticoagulation with Xarelto. (8) Hypertension: Qualifiers: Hypertension type: primary hypertension Qualified Code(s): I10 - Essential (primary) hypertension Code(s): I10 - Essential (primary) hypertension Status: Acute Assessment and Plan: Admitted started yesterday, blood pressure appears to be stable. Also beta-calli was adjusted for bradycardia down to 12.5 b.i.d.. Additional Plan Diet: Heart healthy with fluid restriction DVT prophylaxis on Xarelto GI prophylaxis: Protonix Code status: Full code Disposition: Plan for discharge on Saturday to [facility] facility, with continued clinical improvement Time Spent With Patient Time with patient: 25 - 35 minutes Subjective Date/time seen: 02/25/21 12:13 patient examined. He is feeling well no new complaints. He is tolerating the medication changes. Kidney function continues to improve slowly creatinine down to 2.6. He received potassium supplementation 40 mEq today. Discussed case with Dr. Gómez, starting Flomax and Proscar with plan to remove Lenz catheter. Will continue watching over the weekend plan for discharge on Saturday. He is doing well on the 12.5 mg dose of Lopressor, heart rate regular. Antibiotics has been changed to p.o. clindamycin. Patient denies fever, chills, nausea, vomiting, diarrhea, chest pain, abdominal pain. Right lower extremity pain has decreased significantly. He is diuresing appropriately almost 10 L net negative since admission. Review of Systems Review of Systems: All systems reviewed & are unremarkable except as noted in HPI and below Exam Narrative: - GENERAL: Obese pleasant gentleman breathing comfortably
[2021-02-25] MEDS: TAMSULOSIN HCL 0.4 MG CAPSULE PO ×2 (15:06→21:45)
[2021-02-25 16:53] LABS: Glucose Point of Care 188 mg/dl (65-105)
[2021-02-25] MEDS: RIVAROXABAN 15 MG TABLET PO (17:09)
[2021-02-25 20:04] LABS: Glucose Point of Care 162 mg/dl (65-105)
[2021-02-26] VITALS (8 sets, daily range): BP systolic 117–126; BP diastolic 51–62; PULSE 60–88; RESP 16–20; TEMP 35.9–36.6; O2SAT 94–100
[2021-02-26] MEDS: CLINDAMYCIN HCL 150 MG CAP 300 MG PO ×3 (06:19→21:00)
[2021-02-26 07:23] LABS: Albumin Level 2.5 g/dL (3.5-5.1); Anion Gap 8 mmol/L (8-16); Blood Urea Nitrogen 55 mg/dL (9-20); Calcium 8.1 mg/dL (8.4-10.2); Carbon Dioxide 30 mmol/L (22-30); Chloride 93 mmol/L (98-107); Estimated CRCL calculation 46 ml/min; Estimated Glomerular Filt Rate 29; Glucose 144 mg/dL (65-110); Phosphorus 4.4 mg/dL (2.5-4.5); Potassium 3.7 mmol/L (3.4-5.0); Sodium 131 mmol/L (137-145)
[2021-02-26 07:44] LABS: Glucose Point of Care 141 mg/dl (65-105)
[2021-02-26] MEDS: METOPROLOL TARTRATE 12.5 MG TABLET PO ×2 (09:03→20:14)
[2021-02-26] MEDS: PANTOPRAZOLE 40 MG TABLET PO ×2 (09:03→17:14)
[2021-02-26] MEDS: FINASTERIDE 5 MG TABLET PO (09:03)
[2021-02-26] MEDS: SERTRALINE HCL 50 MG TABLET PO (09:03)
[2021-02-26] MEDS: BUMETANIDE INJ 1 MG/4 ML VIAL IV PUSH (09:03)
[2021-02-26] MEDS: CHOLECALCIFEROL 1,000 UNITS TABLET 2000 UNITS PO (09:03)
[2021-02-26] MEDS: MIDODRINE HCL 10 MG TABLET PO ×3 (09:03→17:14)
[2021-02-26] MEDS: SPIRONOLACTONE 25 MG TABLET PO ×2 (09:03→17:14)
[2021-02-26] MEDS: ASPIRIN 81 MG ENTERIC TABLET PO (09:04)
[2021-02-26] MEDS: ATORVASTATIN 40 MG TABLET PO (09:04)
[2021-02-26] MEDS: AMIODARONE HCL 200 MG TABLET PO ×2 (09:04→17:13)
[2021-02-26] MEDS: GABAPENTIN 300 MG CAPSULE PO ×2 (09:04→17:13)
[2021-02-26] MEDS: ACETAMINOPHEN 325 MG TABLET 650 MG PO ×2 (09:54→20:59)
[2021-02-26 11:54] LABS: Glucose Point of Care 202 mg/dl (65-105)
--- NOTE | 2021-02-26 12:58 | PM.IMPN ---
Progress Note: A&P Assessment and Plan (1) BPH (benign prostatic hyperplasia): Qualifiers: Lower urinary tract symptom presence: symptoms present Lower urinary tract symptom detail: urinary retention Qualified Code(s): N40.1 - Benign prostatic hyperplasia with lower urinary tract symptoms; R33.8 - Other retention of urine Code(s): N40.0 - Benign prostatic hyperplasia without lower urinary tract symptoms Status: Acute Assessment and Plan: discontinue urinary catheter today. Yesterday started Flomax and Proscar (2) Acute renal failure superimposed on stage 3b chronic kidney disease: Qualifiers: Acute renal failure type: unspecified Qualified Code(s): N17.9 - Acute kidney failure, unspecified; N18.32 - Chronic kidney disease, stage 3b Code(s): N17.9 - Acute kidney failure, unspecified; N18.32 - Chronic kidney disease, stage 3b Status: Acute Assessment and Plan: improving daily, creatinine down to 2.3 (3) Hypokalemia: Code(s): E87.6 - Hypokalemia Status: Acute Assessment and Plan: improved to 3.7, likely start to improve as we restarted Aldactone (4) CKD stage 3 due to type 2 diabetes mellitus: Code(s): E11.22 - Type 2 diabetes mellitus with diabetic chronic kidney disease; N18.30 - Chronic kidney disease, stage 3 unspecified Status: Acute Assessment and Plan: longstanding (5) Acute on chronic diastolic CHF (congestive heart failure): Code(s): I50.33 - Acute on chronic diastolic (congestive) heart failure Status: Acute Assessment and Plan: -continue IV diuresis with Bumex - blood pressure stable (6) Cellulitis of right leg: Code(s): L03.115 - Cellulitis of right lower limb Status: Acute Assessment and Plan: -continue clindamycin for cellulitis, will follow-up with the wound care clinic (7) Atrial fibrillation: Qualifiers: Atrial fibrillation type: unspecified Qualified Code(s): I48.91 - Unspecified atrial fibrillation Code(s): I48.91 - Unspecified atrial fibrillation Status: Acute Assessment and Plan: continue amiodarone, low-dose beta-calli Lopressor, continue Xarelto for anticoagulation Additional Plan Diet: Heart healthy with fluid restriction DVT prophylaxis on Xarelto GI prophylaxis: Protonix Code status: Full code Disposition: plan for discharge to detention facility tomorrow, PT OT Time Spent With Patient Time with patient: 25 - 35 minutes Subjective Date/time seen: 02/26/21 12:58 Patient examined. We started Flomax and Proscar, discontinue Lenz catheter today. Kidney numbers continue to improve, creatinine down to 2.3. Patient is tolerating medication current regimen, will keep as is. Plan for discharge to detention facility tomorrow. Patient denies fever, chills, nausea, vomiting, diarrhea, chest pain, abdominal pain, right lower extremity pain. Cellulitis is improving. Review of Systems Review of Systems: All systems reviewed & are unremarkable except as noted in HPI and below Exam Narrative: - GENERAL: Obese pleasant gentleman breathing comfortably on room air - EYES: EOMI. Anicteric. - HENT: Moist mucous membranes. - LUNGS: Clear to auscultation bilaterally. - CARDIOVASCULAR: Regular rate and rhythm. No murmur. - ABDOMEN: Soft, non-tender, obese. No palpable masses. - : Lenz in place - EXTREMITIES: 2+ pitting edema, improving. right lower extremity with purulence drainage of multiple lesions, Improvement of right lower extremity erythema, appropriately diuresing. - NEUROLOGIC: No focal neurological deficits. CN II-XII grossly intact. - PSYCHIATRIC: Awake, Alert and oriented x 3. Appropriate mood and affect. - SKIN: As above - LYMPH: No cervical lymphadenopathy. Objective Data Vital Signs Vital Signs: Vital Signs - 24 hr 02/25/21 14:00 02/25/21 16:00 02/25/21 17:09 Temperature 37.1 C Pulse Rate
--- NOTE | 2021-02-26 13:28 | PM.PNCARD ---
Progress Note: A&P Assessment and Plan (1) Acute on chronic diastolic CHF (congestive heart failure): Code(s): I50.33 - Acute on chronic diastolic (congestive) heart failure Status: Acute Assessment and Plan: Presented with CHF and volume overload - Continue diuresing with Bumex - On moderate dose of metoprolol - monitor BP, has been hypotensive (2) Atrial fibrillation: Qualifiers: Atrial fibrillation type: unspecified Qualified Code(s): I48.91 - Unspecified atrial fibrillation Code(s): I48.91 - Unspecified atrial fibrillation Status: Acute Assessment and Plan: Recent onset of atrial fib /flutter, rate controlled w/ po amiodarone.. continue metoprolol. Holding metoprolol likely to have little impact on BP stabilization. Continue systemic anticoagulation with Xarelto 15 mg at bedtime. Plan will be eventual outpatient cardioversion with Dr. Wallace. continue amiodarone in the interval. If he is not doing well we can consider a MARTIN guided cardioversion prior to discharge. Otherwise stick with the plan made by Dr. Wallace, to re-evaluate and plan a cardioversion in the future. Will sign off for now. Please do not hesitate to contact us with any additional questions or concerns. 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 Shola Wallace. (3) CKD stage 3 due to type 2 diabetes mellitus: Code(s): E11.22 - Type 2 diabetes mellitus with diabetic chronic kidney disease; N18.30 - Chronic kidney disease, stage 3 unspecified Status: Acute Assessment and Plan: Appreciate Nephrology recommendations. Continue current diuresis.Acute on chronic renal failure. Renal u/s unremarkable. Urine electrolytes are pre-renal. Urine output improving with higher blood pressures - patient 5L negative per documentation throughout this hospitalization. Continue diuresis w/ Bumex. Nephrology following - appreciate their input (4) Hypertension: Qualifiers: Hypertension type: primary hypertension Qualified Code(s): I10 - Essential (primary) hypertension Code(s): I10 - Essential (primary) hypertension Status: Acute Assessment and Plan: Stable no acute issues, tolerating medical therapy. (5) Elevated troponin: Code(s): R77.8 - Other specified abnormalities of plasma proteins Status: Acute Assessment and Plan: Patient has elevated troponins in setting of CHF/hypoxia, ARF, A.Fib/RVR not ACS, no prior ischemic EKG changes or symptoms suggestive myocardial ischemia.. However, my feeling is he has had gradual worsening of CHF and this is not an ACS event. There are no ischemic EKG changes. (6) Coronary artery disease: Code(s): I25.10 - Atherosclerotic heart disease of [place] coronary artery without angina pectoris Status: Acute Assessment and Plan: CABG X 5 2001, all arterial grafts. All grafts patent by cath 2016. Remains on aspirin in addition to Xarelto. (7) Cellulitis of right leg: Code(s): L03.115 - Cellulitis of right lower limb Status: Acute Assessment and Plan: Per primary service. Wound care, antibiotics. NATHALIE's indicative of occlusive arterial disease. Follow-up with maintenance supervisor 2nd shift Dr. Wallace as an outpatient. (8) Obstructive sleep apnea on CPAP: Code(s): G47.33 - Obstructive sleep apnea (adult) (pediatric); Z99.89 - Dependence on other enabling machines and devices Status: Acute Assessment and Plan: Compliant with CPAP. (9) Lymphedema: Code(s): I89.0 - Lymphedema, not elsewhere classified Status: Acute Assessment and Plan: Chronic lymphedema, worsened recently. (10) Morbid obesity: Co
--- NOTE | 2021-02-26 14:07 | PM.PNNEP ---
Progress Note: A&P Assessment and Plan (1) VALENCIA (acute kidney injury): Code(s): N17.9 - Acute kidney failure, unspecified Status: Acute Assessment and Plan: the patient has acute kidney injury. Renal ultrasound is unremarkable urine electrolytes are pre renal. Urine protein is only around 300 so is not contributing to the swelling. CPK was normal Possible causes of the higher creatinine include: Acute tubular necrosis from the cellulitis. pre renal azotemia from 3rd spacing and diuretics he was on meloxicam before he came into the hospital Creatinine is a little improved. Down to 1.3 today. It looks like his kidneys are doing better since his swelling and cellulitic changes have improved. Intake/output is negative by about 2300cc Potassium is okay. (2) Cellulitis of leg: Qualifiers: Laterality: right Qualified Code(s): L03.115 - Cellulitis of right lower limb Code(s): L03.119 - Cellulitis of unspecified part of limb Status: Acute Assessment and Plan: He is on Primaxin. He is afebrile. White count is down to 8.3 (3) Lymphedema: Code(s): I89.0 - Lymphedema, not elsewhere classified Status: Acute Assessment and Plan: Not much protein in the urine so this is not contributing. Cardiac issues a possible contributing factor most likely due to venous and lymphatic insufficiency. On Bumetanide plus spironolactone (4) Paroxysmal atrial fibrillation: Code(s): I48.0 - Paroxysmal atrial fibrillation Status: Acute Assessment and Plan: Heart rate doing well in the 70s and 80s On metoprolol and amiodarone patient has coronary disease status post bypass so is still on metoprolol (5) Hypertension: Qualifiers: Hypertension type: primary hypertension Qualified Code(s): I10 - Essential (primary) hypertension Code(s): I10 - Essential (primary) hypertension Status: Acute Assessment and Plan: Systolic blood pressure is ranging between 110 and 180 over the last couple of days. On metoprolol 12.5 b.i.d.. Since it is relatively low today we will medical overnight and see how it is in the morning. Probably a reasonable goal would be a systolic of 140-160 (6) Coronary artery disease: Code(s): I25.10 - Atherosclerotic heart disease of [place] coronary artery without angina pectoris Status: Acute Assessment and Plan: no chest pain or shortness of breath. Cardiology on the case. 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 (8) Hyperlipidemia: Code(s): E78.5 - Hyperlipidemia, unspecified Status: Acute Assessment and Plan: on atorvastatin (9) BPH (benign prostatic hyperplasia): Qualifiers: Lower urinary tract symptom presence: symptoms present Lower urinary tract symptom detail: urinary retention Qualified Code(s): N40.1 - Benign prostatic hyperplasia with lower urinary tract symptoms; R33.8 - Other retention of urine Code(s): N40.0 - Benign prostatic hyperplasia without lower urinary tract symptoms Status: Acute Assessment and Plan: The patient had prostatic symptoms. Will add tamsulosin and finasteride and try pulling catheter out on Saturday. Subjective Date/time seen: 02/26/21 14:07 Interval history: Resting comfortably in bed. Says he feels better overall. Edema is better. Lenz is out. He has not urinated yet but it has only been a few minutes. Exam Narrative: WDWN in NAD skin no rash or subcu nodules head ncat lungs clear anteriorly, decreased breath sounds at the bases. cor reg no rub or gallop abd BS+ nontender and soft ext 1 to 2+ bilateral edema O
[2021-02-26 17:03] LABS: Glucose Point of Care 190 mg/dl (65-105)
[2021-02-26] MEDS: BUMETANIDE 1 MG TABLET PO (17:14)
[2021-02-26] MEDS: RIVAROXABAN 15 MG TABLET PO (17:14)
[2021-02-26] MEDS: TAMSULOSIN HCL 0.4 MG CAPSULE PO (20:14)
[2021-02-26 20:18] LABS: Glucose Point of Care 175 mg/dl (65-105)
[2021-02-27 05:32] VITALS: BP 167/85; PULSE 71; RESP 18; TEMP 36.1; O2SAT 99
[2021-02-27] MEDS: CLINDAMYCIN HCL 150 MG CAP 300 MG PO ×2 (05:45→14:22)
[2021-02-27 06:56] LABS: Albumin Level 2.6 g/dL (3.5-5.1); Anion Gap 9 mmol/L (8-16); Blood Urea Nitrogen 52 mg/dL (9-20); Calcium 8.1 mg/dL (8.4-10.2); Carbon Dioxide 29 mmol/L (22-30); Chloride 95 mmol/L (98-107); Estimated CRCL calculation 48 ml/min; Estimated Glomerular Filt Rate 30; Glucose 188 mg/dL (65-110); Magnesium 2.2 mg/dL (1.6-2.3); Phosphorus 4.4 mg/dL (2.5-4.5); Potassium 3.9 mmol/L (3.4-5.0); Sodium 133 mmol/L (137-145)
[2021-02-27 08:28] LABS: Glucose Point of Care 181 mg/dl (65-105)
[2021-02-27 10:31] VITALS: PULSE 90
[2021-02-27] MEDS: METOPROLOL TARTRATE 12.5 MG TABLET PO (10:31)
[2021-02-27] MEDS: GABAPENTIN 300 MG CAPSULE PO (10:31)
[2021-02-27] MEDS: BUMETANIDE 1 MG TABLET PO (10:31)
[2021-02-27] MEDS: SPIRONOLACTONE 25 MG TABLET PO (10:31)
[2021-02-27] MEDS: MIDODRINE HCL 10 MG TABLET PO ×2 (10:31→14:22)
[2021-02-27 10:32] VITALS: PULSE 90
[2021-02-27] MEDS: ASPIRIN 81 MG ENTERIC TABLET PO (10:32)
[2021-02-27] MEDS: SERTRALINE HCL 50 MG TABLET PO (10:32)
[2021-02-27] MEDS: ATORVASTATIN 40 MG TABLET PO (10:32)
[2021-02-27] MEDS: FINASTERIDE 5 MG TABLET PO (10:32)
[2021-02-27] MEDS: PANTOPRAZOLE 40 MG TABLET PO (10:32)
[2021-02-27] MEDS: CHOLECALCIFEROL 1,000 UNITS TABLET 2000 UNITS PO (10:32)
[2021-02-27] MEDS: AMIODARONE HCL 200 MG TABLET PO (10:32)
[2021-02-27 11:41] LABS: Glucose Point of Care 287 mg/dl (65-105)
--- NOTE | 2021-02-27 13:09 | PM.DS ---
DS: Admitting Diagnosis Admitting Diagnosis AFib with RVR, pulmonary congestion DS: Discharge Diagnosis Discharge Diagnosis (1) BPH (benign prostatic hyperplasia): Qualifiers: Lower urinary tract symptom presence: symptoms present Lower urinary tract symptom detail: urinary retention Qualified Code(s): N40.1 - Benign prostatic hyperplasia with lower urinary tract symptoms; R33.8 - Other retention of urine Code(s): N40.0 - Benign prostatic hyperplasia without lower urinary tract symptoms Status: Acute Assessment and Plan: Started on Flomax and Proscar this hospitalization (2) Acute renal failure superimposed on stage 3b chronic kidney disease: Qualifiers: Acute renal failure type: unspecified Qualified Code(s): N17.9 - Acute kidney failure, unspecified; N18.32 - Chronic kidney disease, stage 3b Code(s): N17.9 - Acute kidney failure, unspecified; N18.32 - Chronic kidney disease, stage 3b Status: Acute Assessment and Plan: Secondary to aggressive diuresis. ATN likely (3) Hypokalemia: Code(s): E87.6 - Hypokalemia Status: Acute Assessment and Plan: Secondary to diuretics (4) VALENCIA (acute kidney injury): Code(s): N17.9 - Acute kidney failure, unspecified Status: Acute Assessment and Plan: Likely secondary to diuresis and possibly secondary to the cellulitis, his kidney numbers continue to improve as we decreased his blood pressure medications and wean down his diuresis. His medications were adjusted because of his kidney disease. Workup did not find any postrenal etiologies, renal ultrasound was unremarkable. Urine electrolytes suggested prerenal etiology. He did have a urinary catheter and started on Flomax/Proscar for having incomplete voiding. Patient should avoid meloxicam as it may cause worsening renal function, meloxicam home medication was discontinued on discharge. (5) CKD stage 3 due to type 2 diabetes mellitus: Code(s): E11.22 - Type 2 diabetes mellitus with diabetic chronic kidney disease; N18.30 - Chronic kidney disease, stage 3 unspecified Status: Acute Assessment and Plan: Underlying CKD. Patient may need to establish with a voltage tester in the near future. (6) Acute on chronic diastolic CHF (congestive heart failure): Code(s): I50.33 - Acute on chronic diastolic (congestive) heart failure Status: Acute Assessment and Plan: Acute worsening congestive heart failure. Patient was on oxygen and weaned off. Throughout his hospitalization he was diuresed 10 L of fluid. Nephrology started patient on spironolactone which will help with his decompensated heart failure and hypokalemia (7) Elevated troponin: Code(s): R77.8 - Other specified abnormalities of plasma proteins Status: Acute Assessment and Plan: Likely secondary to heart failure, no active chest pain (8) Cellulitis of right leg: Code(s): L03.115 - Cellulitis of right lower limb Status: Acute Assessment and Plan: -Patient has acute on chronic cellulitis of the right lower extremity with acute exacerbation with open seeping wounds and erythema very tender to touch. -patient was treated with IV vanc and imipenem, infectious disease foreign legal consultant changed him to clindamycin on discharge for 1 week and he will follow-up with [facility] in [facility]. -patient may need of vascular follow-up in the future he has mild vascular disease in the right lower extremity where the infection is. It does not appear severe enough for vascular surgery at this time -venous duplex have been negative. (9) Morbid obesity: Code(s): E66.01 - Morbid (severe) obesity due to excess calories Status: Acute Assessment and Plan: Patient will need weight loss plan in the future. He had received dietary counseling while inpatient. (10) Paroxysmal atrial fibrillation: Code(s): I48.0 - Paroxysmal
[2021-02-27 14:00] VITALS: BP 142/74; PULSE 73; RESP 18; TEMP 36.8; O2SAT 100
== END 2021-02-27 17:00 | DRG 291 ==
LOC: ANHED 08:41 → ANHIMU 02-15 01:32 → ANH3MED 02-23 07:17 → ANHIMU 03-01 15:57
PROVIDERS: Emergency Medicine; Hospitalist; Internal Medicine Nephrology; Physician Assistant; Admitting Provider Internal Medicine; Emergency Provider Emergency Medicine; PCP Internal Medicine; Visit Provider Student in an Organized Health Care Education/Training Program
DX: I13.0 Hypertensive heart and chronic kidney disease with heart failure and stage 1 through stage 4 chronic kidney disease, or unspecified chronic kidney disease (principal); I50.33 Acute on chronic diastolic (congestive) heart failure; N17.0 Acute kidney failure with tubular necrosis; I69.351 Hemiplegia and hemiparesis following cerebral infarction affecting right dominant side; Z68.43 Body mass index [BMI] 50.0-59.9, adult; L03.115 Cellulitis of right lower limb; N17.9 Acute kidney failure, unspecified; E66.2 Morbid (severe) obesity with alveolar hypoventilation; E78.5 Hyperlipidemia, unspecified; Z95.1 Presence of aortocoronary bypass graft; Z79.01 Long term (current) use of anticoagulants; Z79.82 Long term (current) use of aspirin; I25.10 Atherosclerotic heart disease of native coronary artery without angina pectoris; I48.0 Paroxysmal atrial fibrillation; I89.0 Lymphedema, not elsewhere classified; Z79.4 Long term (current) use of insulin; E11.42 Type 2 diabetes mellitus with diabetic polyneuropathy; Z98.84 Bariatric surgery status; E11.22 Type 2 diabetes mellitus with diabetic chronic kidney disease; E11.649 Type 2 diabetes mellitus with hypoglycemia without coma; E87.6 Hypokalemia; N18.32 Chronic kidney disease, stage 3b; B95.5 Unspecified streptococcus as the cause of diseases classified elsewhere; Z88.0 Allergy status to penicillin; N40.1 Benign prostatic hyperplasia with lower urinary tract symptoms; R33.8 Other retention of urine; I95.2 Hypotension due to drugs; T50.2X5A Adverse effect of carbonic-anhydrase inhibitors, benzothiadiazides and other diuretics, initial encounter; Y92.230 Patient room in hospital as the place of occurrence of the external cause; R77.8 Other specified abnormalities of plasma proteins
CPT/HCPCS: 36415; 71045; 71046; 76775; 80048; 80053; 80069; 80076; 80202; 81001; 82550; 82565; 82570; 82948; 83036; 83735; 83880; 84156; 84300; 84443; 84484; 85025; 85027; 85055; 85610; 85730; 87040; 93005; 93922; 93970; 96374; 97110; 97116; 97161; 97165; 97530; 97535; 99285; A9270; C8929; J0131; J0743; J1815; J1940; J2405; J3370; J7040; Q9957

== ENCOUNTER 2021-03-21 10:42 | Outpatient (NON) | payer MEDICARE, SELFPAY ==
[2021-03-21 11:16] LABS: Basophils Percent Auto 0.2 % (0.2-1.2); Hematocrit 32.7 % (42.0-52.0); Hemoglobin 10.1 g/dL (14.0-18.0); Immature Granulocyte Absolute 0.08 K/mm3 (0.00-0.031); Immature Granulocyte Percent A 1.5 % (0-0.5); Lymphocytes Absolute Auto 0.68 K/mm3 (0.9-3.2); Lymphocytes Percent Auto 12.4 % (18.3-44.2); Mean Corpuscular HGB Conc 30.9 g/dl (32-36); Mean Corpuscular Hemoglobin 27.6 pg (26-34); Mean Corpuscular Volume 89.3 fl (80-100); Mean Platelet Volume 11.6 fl (7.4-10.4); Monocytes Absolute Auto 0.5 K/mm3 (0.1-0.6); Neutrophils Absolute Auto 4.2 K/mm3 (1.3-6.7); Neutrophils Percent Auto 76.9 % (45.5-73.1); Platelet Count Result 117 k/mm3 (150-375); Red Blood Count 3.66 M/mm3 (4.6-6.20); White Blood Count 5.5 K/mm3 (4.5-10.0)
[2021-03-21 11:53] LABS: Anion Gap 5 mmol/L (8-16); Blood Urea Nitrogen 26 mg/dL (9-20); Calcium 8.5 mg/dL (8.4-10.2); Carbon Dioxide 28 mmol/L (22-30); Chloride 107 mmol/L (98-107); Estimated Glomerular Filt Rate 43; Glucose 66 mg/dL (65-110); Potassium 3.8 mmol/L (3.4-5.0); Sodium 140 mmol/L (137-145)
== END 2021-03-21 10:43 | disposition home or self-care (01) ==
LOC: HOME HLTH 10:46
PROVIDERS: PCP Internal Medicine; Visit Provider Internal Medicine
DX: N18.30 Chronic kidney disease, stage 3 unspecified (principal); L03.90 Cellulitis, unspecified
CPT/HCPCS: 80048; 85025

== ENCOUNTER 2022-04-22 19:18 | Observation (INO) | payer MEDICARE, SELFPAY ==
[2022-04-22] VITALS (19 sets, daily range): BP systolic 125–158; BP diastolic 69–90; PULSE 86–92; RESP 10–21; TEMP 36.6; O2SAT 98–100
--- NOTE | ~2022-04-22 | XR_ITS ---
EXAMINATION: XR chest 1V portable Exam Date/Time: 04/22/2022 19:54 CDT HISTORY: chest pain; hx of HTN, Type 2 DM Comparison: 02/18/2021. RESULT: Lines, tubes, and devices: Fractured sternotomy wire, in stable position. Lungs and pleura: Clear. Cardiomediastinal silhouette: Stable. Other: No acute osseous or upper abdominal finding. IMPRESSION: No acute cardiopulmonary process. Reviewed, dictated and finalized at location K.
--- NOTE | ~2022-04-22 | CT_ITS ---
EXAMINATION: CT abdomen pelvis wo con DATE: 04/23/2022 01:37 INDICATION: Decubitus ulcer. TECHNIQUE: Computed tomography (CT) of the abdomen and pelvis was performed without intravenous contr ast. Automated exposure control and iterative reconstruction technique were employed. The dose-length product was 1869.48 mGy-cm. COMPARISON: None. FINDINGS: The visualized portions of the lung bases demonstrate mild atelectasis. A calcified right l jorge nodule is consistent with old granulomatous disease. No pleural effusion. The heart size is lacie l. There are coronary artery calcifications. No pericardial effusion. The liver is normal. There are gallstones in the gallbladder, which is normal in size. Calcifications in the spleen are consistent w ith old granulomatous disease. There is atrophy of the pancreas. The adrenal glands and right kidney are normal. There are 2 stones in left kidney with the larger measuring 7 mm. There is an umbilical h ernia containing fat. There are no dilated loops of bowel. The appendix is normal. There is a lap ban d around the proximal stomach. There are no pathologically enlarged lymph nodes. There is no free int raperitoneal fluid. There is fat stranding superficial to the sacrum and coccyx. There are chronic bi lateral L5 pars defects. There is 4 mm anterolisthesis of L5 on S1. There are bridging endplate osteo phytes at multiple levels in the spine, consistent with diffuse idiopathic skeletal hyperostosis (DIS H). There is mild thoracic spondylosis and moderate lumbar spondylosis. IMPRESSION: 1. Subcutaneous fat stranding superficial to the sacrum and coccyx, consistent with inflammation. No evidence of osteomyelitis. 2. Umbilical hernia containing fat. Reviewed, dictated and finalized at location B.
--- NOTE | 2022-04-22 19:37 | ECG_ITS ---
Measurements Intervals Johnson Rate: 86 P: 67 NH: 202 QRS: -73 QRSD: 120 T: 77 QT: 336 QTc: 402 Interpretive Statements SINUS RHYTHM POSSIBLE RIGHT VENTRICULAR CONDUCTION DELAY [RSR (QR) IN V1/V2] POSSIBLE LEFT ANTERIOR FASCICULAR BLOCK ANTEROLATERAL MYOCARDIAL INFARCTION , OF INDETERMINATE AGE ABNORMAL ECG COMPARED TO ECG 02/17/2021 09:59:18 LEFT ANTERIOR FASCICULAR BLOCK NOW PRESENT Electronically Signed On 04-23-2022 14:40:00 CDT by Shahriar Matias M.D.
--- NOTE | 2022-04-22 19:56 | ED.GENADULT ---
HPI - General Adult General Chief complaint: Chest Pain Stated complaint: chest pain since 4 pm Time Seen by Provider: 04/22/22 19:41 History of Present Illness HPI narrative: This is a 66-year-old male with poor functional status presenting to ED for chest pain. Patient states he was watching TV at 4:00 p.m. when he started experience tightness on the left side of his chest. It is nonradiating, is 5/10 intensity. it is gradual in onset and slowly getting worse. He has never experienced pain like this before. There are no exacerbating or alleviating factors. Is not associated with diaphoresis vomiting exertional component radiation. Denies fever, chills, shortness of breath, abdominal pain. Patient is in rehab for a broken arm. Patient has poor functional status and is barely able to stand without assistance. He is essentially immobile. He takes anticoagulation. Denies any recent falls. The patient and his is very concerned the rehab facility is not able to take care of the patient. His condition has worsened significantly since he had gone there since he has gone there. He has developed ulcerations and is actually become weaker. Related Data Home Medications Medication Instructions Recorded Confirmed aspirin 81 mg tablet 81 mg PO DAILY 05/31/20 02/14/21 cholecalciferol (vitamin D3) 50 50 mcg PO DAILY 02/14/21 02/14/21 mcg (2,000 unit) capsule (Vitamin D3) Citroma 04/22/22 04/22/22 Dulcolax (bisacodyl) 04/22/22 04/22/22 Humalog U-100 Insulin 04/22/22 04/22/22 Milk of Magnesia 04/22/22 04/22/22 Renal-Archana 0.8 mg DAILY 04/22/22 04/22/22 Santyl 250 unit topical DAILY 04/22/22 04/22/22 Senna Plus 04/22/22 apixaban 2.5 mg tablet mg 04/22/22 ascorbate calcium (vitamin C) 04/22/22 bisacodyl 04/22/22 bisacodyl 04/22/22 04/22/22 fludrocortisone 0.1 mg DAILY 04/22/22 04/22/22 gentamicin sulfate (PF) 04/22/22 04/22/22 insulin glargine 27 units 04/22/22 insulin lispro 100 unit/mL 04/22/22 subcutaneous solution (Humalog U-100 Insulin) midodrine 2.5 mg Q6H 04/22/22 04/22/22 oxycodone 5 mg Q6H PRN Pain 04/22/22 04/22/22 Allergies Allergy/AdvReac Type Severity Reaction Status Date / Time bupropion Allergy Unknown Verified 04/22/22 21:17 Penicillins Allergy Itching Verified 04/22/22 21:17 hydrocodone AdvReac Dizziness Verified 04/22/22 21:17 Review of Systems Review of Systems: CONSTITUTIONAL: Denies night sweats. EYES: No eye pain ENT: Denies rhinorrhea CARDIOVASCULAR: Denies palpitations RESPIRATORY: Denies hemoptysis GASTROINTESTINAL: Denies hematemesis GENITOURINARY: Denies hematuria. SKIN: Denies rash MUSCULOSKELETAL: Denies myalgia. NEUROLOGIC: Denies weakness. PSYCHIATRIC: Denies delusions [facility] Past Medical History Medical History BPH (benign prostatic hyperplasia) Cerebrovascular accident 2012.Residual right upper extremity weakness and balance issues. CKD stage 3 due to type 2 diabetes mellitus Coronary artery disease Status post CABG. Diabetic peripheral neuropathy Hyperlipidemia Hypertension Insulin dependent type 2 diabetes mellitus Lymphedema Had Ph Tx 2019, now has LE pumps Morbid obesity Obstructive sleep apnea on CPAP Paroxysmal atrial fibrillation Surgical History Surgical History History of five vessel coronary artery bypass (2001) History of laparoscopic adjustable gastric banding (2009) History of repair of left rotator cuff History of total left knee replacement Family History Family History Father Acute myocardial infarction Congestive heart failure Diabetes mellitus Hypertension Grandparent Acute myocardial infarction Congestive heart failure Diabetes mellitus Hypertension Social History Social History Social His
[2022-04-22 20:30] LABS: Hematocrit 32.8 % (42.0-52.0); Hemoglobin 10.1 g/dL (14.0-18.0); Immature Granulocyte Absolute 0.09 K/mm3 (0.00-0.031); Immature Platelet Fraction Pct 6.8 % (0.9-11.2); Lymphocytes Absolute Auto 0.68 K/mm3 (0.9-3.2); Lymphocytes Percent Auto 15.2 % (18.3-44.2); Mean Corpuscular HGB Conc 30.8 g/dl (32-36); Mean Corpuscular Volume 87.7 fl (80-100); Mean Platelet Volume 11.5 fl (7.4-10.4); Monocytes Absolute Auto 0.6 K/mm3 (0.1-0.6); Monocytes Percent Auto 12.3 % (2.6-8.5); Neutrophils Absolute Auto 3.2 K/mm3 (1.3-6.7); Neutrophils Percent Auto 70.5 % (45.5-73.1); Platelet Count Result 106 k/mm3 (150-375); Red Blood Count 3.74 M/mm3 (4.6-6.20); Red Cell Distribution Width 19.9 % (11.5-14.5); White Blood Count 4.5 K/mm3 (4.5-10.0)
[2022-04-22 20:40] LABS: INR 1.3; Prothrombin Time 15.3 Seconds (11.1-14.7)
[2022-04-22 20:41] LABS: Partial Thromboplastin Time 39.2 SECONDS (22.3-36.8)
[2022-04-22 20:42] LABS: Alanine Aminotransferase 43 U/L (6-50); Albumin Level 2.9 g/dL (3.5-5.1); Alkaline Phosphatase 225 U/L (38-126); Anion Gap 8 mmol/L (8-16); Aspartate Amino Transferase 35 U/L (17-59); Bilirubin,Total 0.9 mg/dL (0.2-1.3); Blood Urea Nitrogen 21 mg/dL (9-20); Calcium 7.9 mg/dL (8.4-10.2); Carbon Dioxide 28 mmol/L (22-30); Chloride 97 mmol/L (98-107); Estimated CRCL calculation 44 ml/min; Estimated Glomerular Filt Rate 30; Glucose 252 mg/dL (65-110); Lipase 119 U/L (23-300); Potassium 3.3 mmol/L (3.4-5.0); Sodium 133 mmol/L (137-145)
[2022-04-22 20:51] LABS: NT Pro B Type Natriuretic Pept 3740 pg/mL (5-100)
[2022-04-22 20:58] LABS: Troponin I 0.047 ng/mL (0.000-0.034)
--- NOTE | 2022-04-22 21:03 | PC.NURSE ---
Pt states chest pain is manageable at this time. Reports is 11/28.
--- NOTE | 2022-04-22 21:43 | PC.NURSE ---
Pt's medications updated, note several medications in computer chart that are not on printed list from [employer]'s list. Attempt x2 to call [employer], call would not go through.
[2022-04-22 23:08] LABS: Troponin I 0.036 ng/mL (0.000-0.034)
[2022-04-23] VITALS (34 sets, daily range): BP systolic 125–170; BP diastolic 58–98; PULSE 74–103; RESP 13–21; TEMP 36.1–37; O2SAT 95–100; BMI 63.3; BMI 10.0
--- NOTE | 2022-04-23 00:15 | PC.NURSE ---
Pt updated on plan of care an that awaiting Dr. Thomas to return call. States has no chest pain at present.
--- NOTE | 2022-04-23 00:45 | PC.NURSE ---
Dr. Barone speaking with Dr. Thomas.
--- NOTE | 2022-04-23 01:17 | PC.NURSE ---
Bed assignment received. Pt to CT via stretcher.
--- NOTE | 2022-04-23 01:45 | ADMGEN ---
This patient, Carlton Perkins, was admitted to 2 Medical Room 241-. Patient/family oriented to hospital policies and general routines including ID bracelet, bed and alarms, visiting hours, pain management, procedures, bathroom and other care routines, personal items, smoking policy, room service/diet, and visiting hours. Information on how to activate the Rapid Response Team has been discussed. Patient/Family are encouraged to report perceived risks to care and to ask questions if they do not understand what they are told or what they should do.
--- NOTE | 2022-04-23 01:53 | PM.IMHP ---
H&P: HPI History of Present Illness Date/Time: 04/23/22 01:53 Chief Complaint: Chest pain Narrative: 66-year-old male with past medical history of CVA, diabetes, hypertension, hyperlipidemia, coronary disease, obstructive sleep apnea, paroxysmal atrial ablation, and chronic kidney disease with relatively recent initiation of dialysis who presented to the ER from [facility] acute rehab in [place] due to chest tightness. Pain was to the left side of his chest and nonradiating. 5/10 in intensity. He had gradual onset and occurred while he was watching TV. He denies any eliciting or relieving factors. He has not had any associated diaphoresis, nausea, vomiting, cough or congestion. Patient is essentially non mobile since he broke his arm a couple of months ago. The patient can barely stand with assistance. He has been essentially bed-bound and immobile. He has subsequently developed gluteal cleft decubitus ulcer that appears to be about stage III. The patient feel that the rehab facility is not taking care the patient in that they are the cause for patient having his wound. They feel that he has gotten progressively weaker despite being at acute rehab. The patient reports that at almost [facility] where he was hospitalized March 24 through the they were changing the dressing on his stage IV decubitus ulcer every day. Since he has been discharged to [facility] they have only dressed his wounds 2 or 3 times. In fact the patient still had a dressing covering abrasion on his right elbow that had been placed on the when he was admitted to the outside hospital. According to the ER physician report, when the patient arrived to the ER his sacral decubitus ulcer was packed with stool. There was no drainage from the decubitus ulcer and no surrounding erythema. The patient does not have a white count denies any fevers or chills. He simply reports that he has been having progressive weakness. He has dried peeling skin to his arms in states that they have just been wiping him down with some sanitizing wipes the any does not feel like he has had a good bath. He reports that during his hospitalization at [facility] he developed worsening of his chronic kidney disease in ended up having a right femoral dialysis catheter placed. He had than femoral dialysis catheter placed because he had a PICC line in the left upper extremity and he had fractured his right upper extremity. He reports he fractures right upper extremity ambulating with his walker at home and catching his walker on the corner of the bed. The fracture is being managed conservatively due to the patient's tenuous medical status. He does have obstructive sleep apnea but has been compliant with his CPAP. Since he has been started on hemodialysis the patient reports he only urinates miniscule amounts couple of times a day. He will have urgency but then only have a small amount a urine output. He denies any dysuria. He has been having normal bowel movements. He denies any nausea or vomiting but reports that he has not had good appetite since his recent onset of illness. The patient has been seeing Dr. Brandon for Nephrology. Review of Systems Review of Systems: 12 systems were reviewed with pertinent positives and negatives per HPI. Except as documented in the HPI, all other systems were reviewed and are negative. [facility] Past Medical History Medical History (Updated 04/23/22 @ 07:14 by Parisa Thomas, ) Anemia of chronic disease BPH (benign prostatic hyperplasia) Cerebrovascular accident 2012 with residual right upper extremity weakness and balance issues. Chronic venous stasis dermatitis of both lower extremities Right greater than left Coronary artery disease Status post CABG. Diabetic peripheral neuropathy Diastolic heart failure echocardiogram 01/2021: Normal left ventricular systolic size and function. EF 60 65%. Indeterminate diastolic
[2022-04-23 02:46] LABS: Troponin I 0.033 ng/mL (0.000-0.034)
[2022-04-23 06:04] LABS: Hematocrit 31.4 % (42.0-52.0); Hemoglobin 9.5 g/dL (14.0-18.0); Mean Corpuscular HGB Conc 30.3 g/dl (32-36); Mean Corpuscular Volume 89.2 fl (80-100); Mean Platelet Volume 12.2 fl (7.4-10.4); Platelet Count Result 102 k/mm3 (150-375); Red Blood Count 3.52 M/mm3 (4.6-6.20); Red Cell Distribution Width 20.3 % (11.5-14.5); White Blood Count 4.6 K/mm3 (4.5-10.0)
[2022-04-23 06:25] LABS: Anion Gap 9 mmol/L (8-16); Blood Urea Nitrogen 23 mg/dL (9-20); Calcium 7.9 mg/dL (8.4-10.2); Carbon Dioxide 28 mmol/L (22-30); Chloride 95 mmol/L (98-107); Estimated CRCL calculation 37 ml/min; Estimated Glomerular Filt Rate 29; Glucose 286 mg/dL (65-110); Potassium 3.1 mmol/L (3.4-5.0); Sodium 132 mmol/L (137-145)
[2022-04-23 07:25] LABS: Hemoglobin A1C 6.4 % (<5.7)
[2022-04-23] MEDS: COLLAGENASE OINT 30 GM TUBE 1 APPLIC TOPICAL ×2 (08:33→20:53)
[2022-04-23 08:37] LABS: Glucose Point of Care 272 mg/dl (65-105)
[2022-04-23] MEDS: INSULIN ASPART (*BKC) 100 UNITS/ML SUB-Q ×2 (08:53→16:56)
[2022-04-23] MEDS: MIDODRINE HCL 2.5 MG TABLET PO ×3 (08:57→16:56)
[2022-04-23] MEDS: CHOLECALCIFEROL 1,000 UNITS TABLET 1000 UNITS PO (08:57)
[2022-04-23] MEDS: FINASTERIDE 5 MG TABLET PO (08:57)
[2022-04-23] MEDS: VITAMIN B CMPLX/VIT C/FOLIC AC 1 CAPSULE 1 CAP PO (08:57)
[2022-04-23] MEDS: TAMSULOSIN HCL 0.4 MG CAPSULE PO (08:57)
[2022-04-23] MEDS: ASPIRIN 81 MG ENTERIC TABLET PO (08:58)
[2022-04-23] MEDS: FLUDROCORTISONE ACETATE 0.1 MG TABLET 0.2 MG PO (08:58)
[2022-04-23] MEDS: SENNA/DOCUSATE SODIUM TABLET 2 TAB PO (08:58)
[2022-04-23] MEDS: APIXABAN 2.5 MG TABLET PO ×2 (08:58→16:56)
[2022-04-23] MEDS: ASCORBIC ACID 500 MG TABLET PO (08:58)
[2022-04-23] MEDS: EUCERIN CREAM 120 GM JAR 1 APPLIC TOPICAL (09:07)
--- NOTE | 2022-04-23 09:50 | PC.NURSE ---
Report called to Mary Beth PALMER dialysis nurse.
--- NOTE | 2022-04-23 10:00 | PC.NURSE ---
To dialysis via bed.
--- NOTE | 2022-04-23 10:27 | PM.EVENT ---
Event Note Event Note Event Note: patient is on dialysis. Tolerating it well. Blood pressures about 160/80 when I saw him. Fluid is being removed. He was seen at 10 25 a.m.
--- NOTE | 2022-04-23 10:52 | PCPTNOTE ---
Attempted PT evaluation, pt currently at dialysis. Will follow.
[2022-04-23] MEDS: EPOETIN ALFA-EPBX 10,000 UNITS/ML VIAL 10000 UNITS IV PUSH (12:17)
[2022-04-23 13:13] LABS: Hepatitis B Surface Antigen Negative (Negative)
[2022-04-23 13:33] LABS: Hepatitis B Surface Anti Res Negative
[2022-04-23] MEDS: HEPARIN SODIUM 1,000 UNITS/ML VIAL 1000 UNITS IV PUSH (13:37)
[2022-04-23 13:48] LABS: Glucose Point of Care 200 mg/dl (65-105)
--- NOTE | 2022-04-23 13:52 | PM.CNNEP ---
Assessment and Plan Assessment and plan (1) VALENCIA (acute kidney injury): Code(s): N17.9 - Acute kidney failure, unspecified Status: Acute Assessment and Plan: the patient has underlying chronic kidney disease. Is unclear what his baseline creatinine is. This is most likely due to diabetes and hypertension. Patient also has acute kidney injury. This may be related to infection or other events during the hospital stay at [facility]. He is not making very much urine but makes a little bit. It does not look like he is opening up yet. Will continue dialysis. I talked with the dialysis nurse is going to do him this morning. (2) Closed right humeral fracture: Qualifiers: Encounter type: subsequent encounter Code(s): S42.301A - Unspecified fracture of shaft of humerus, right arm, initial encounter for closed fracture Status: Acute Assessment and Plan: The patient's arm is in a sling. It is being managed conservatively because of his comorbidities. (3) Hypokalemia: Code(s): E87.6 - Hypokalemia Status: Acute Assessment and Plan: His potassium is a little bit low. He is not on diuretics. However he is not eating all that well because the food at his facility does not taste very good. He is on fludrocortisone which could make his potassium low if he had more function but probably is not doing much with his kidneys. Will do dialysis with a 4K bath. 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 (6) HTN (hypertension): Code(s): I10 - Essential (primary) hypertension Status: Acute Assessment and Plan: His blood pressure is doing pretty well right now. He does have some episodes of low blood pressure and takes midodrine plus Florinef for this. Will evaluate this going forward. He will get some albumin to keep his blood pressure from dropping too much on the machine. (7) Acute on chronic diastolic CHF (congestive heart failure): Code(s): I50.33 - Acute on chronic diastolic (congestive) heart failure Status: Acute (8) Decubitus ulcer: Code(s): L89.90 - Pressure ulcer of unspecified site, unspecified stage Status: Acute Assessment and Plan: Local wound care History of Present Illness Reason for Consult Consult date: 04/23/22 Chief Complaint Chief complaint: Chest Pain History of Present Illness Narrative: Patient seen at 8:00 a.mJillian Vincent is a very pleasant 66-year-old gentleman with multiple medical problems including diabetes, hypertension, hyperlipidemia, coronary disease, sleep apnea, paroxysmal atrial fibrillation, stroke, chronic kidney disease. He was seeing Dr. Brandon in the office for his chronic kidney disease. He does not know what his function was before this. Then he went into the hospital because of falling and breaking his arm. The patient was admitted to the hospital and during the hospital stay he became weak. Details of the hospitalization are are on available. During this process, he did develop a stage III decubitus ulcer. it is unclear exactly when this started. He has been getting some physical therapy but has not really gotten any stronger since being in rehab. While in the hospital he developed renal failure and had to be put on dialysis. He thinks that this is only temporary but is not sure. He does not make very much urine these days. The patient came to our ER because of chest pain. This had been going on for a few hours. This slowly worsened and so came to the emergency room.
[2022-04-23] MEDS: SODIUM CHLORIDE 0.9% IV 1,000 ML 999 ML IV CONT (14:46)
[2022-04-23] MEDS: TOLNAFTATE 1% POWDER 45 GM BTL 1 APPLIC TOPICAL ×2 (14:59→20:53)
[2022-04-23 16:50] LABS: Glucose Point of Care 244 mg/dl (65-105)
[2022-04-23 21:00] LABS: Glucose Point of Care 238 mg/dl (65-105)
[2022-04-24] VITALS (12 sets, daily range): BP systolic 126–149; BP diastolic 55–73; PULSE 77–92; RESP 20–21; TEMP 35.7–36.4; O2SAT 99–100
[2022-04-24 05:06] LABS: Basophils Percent Auto 0.2 % (0.2-1.2); Hematocrit 34.8 % (42.0-52.0); Hemoglobin 10.2 g/dL (14.0-18.0); Immature Granulocyte Percent A 2.1 % (0-0.5); Lymphocytes Absolute Auto 0.67 K/mm3 (0.9-3.2); Lymphocytes Percent Auto 13.9 % (18.3-44.2); Mean Corpuscular HGB Conc 29.3 g/dl (32-36); Mean Corpuscular Hemoglobin 27.3 pg (26-34); Mean Platelet Volume 12.3 fl (7.4-10.4); Monocytes Absolute Auto 0.6 K/mm3 (0.1-0.6); Monocytes Percent Auto 11.4 % (2.6-8.5); Neutrophils Absolute Auto 3.5 K/mm3 (1.3-6.7); Neutrophils Percent Auto 72.4 % (45.5-73.1); Platelet Count Result 106 k/mm3 (150-375); Red Blood Count 3.74 M/mm3 (4.6-6.20); Red Cell Distribution Width 21.2 % (11.5-14.5); White Blood Count 4.8 K/mm3 (4.5-10.0)
[2022-04-24 05:43] LABS: Hypochromasia 1+ (NORMAL); Platelet Estimate Decreased (Adequate); Schistocytes None Seen (NORMAL)
[2022-04-24 08:00] LABS: Glucose Point of Care 238 mg/dl (65-105)
[2022-04-24] MEDS: SENNA/DOCUSATE SODIUM TABLET 2 TAB PO (08:21)
[2022-04-24] MEDS: ASPIRIN 81 MG ENTERIC TABLET PO (08:21)
[2022-04-24] MEDS: VITAMIN B CMPLX/VIT C/FOLIC AC 1 CAPSULE 1 CAP PO (08:21)
[2022-04-24] MEDS: MIDODRINE HCL 2.5 MG TABLET PO ×3 (08:22→17:34)
[2022-04-24] MEDS: TAMSULOSIN HCL 0.4 MG CAPSULE PO (08:22)
[2022-04-24] MEDS: FINASTERIDE 5 MG TABLET PO (08:22)
[2022-04-24] MEDS: CHOLECALCIFEROL 1,000 UNITS TABLET 1000 UNITS PO (08:22)
[2022-04-24] MEDS: ASCORBIC ACID 500 MG TABLET PO (08:22)
[2022-04-24] MEDS: FLUDROCORTISONE ACETATE 0.1 MG TABLET 0.2 MG PO (08:22)
[2022-04-24] MEDS: APIXABAN 2.5 MG TABLET PO ×2 (08:22→17:34)
[2022-04-24] MEDS: INSULIN ASPART (*BKC) 100 UNITS/ML SUB-Q ×3 (08:23→17:34)
[2022-04-24] MEDS: COLLAGENASE OINT 30 GM TUBE 1 APPLIC TOPICAL ×2 (08:23→21:12)
[2022-04-24] MEDS: EUCERIN CREAM 120 GM JAR 1 APPLIC TOPICAL (08:23)
[2022-04-24] MEDS: TOLNAFTATE 1% POWDER 45 GM BTL 1 APPLIC TOPICAL ×2 (08:23→21:15)
[2022-04-24] MEDS: oxyCODONE HCL (*CRX) 5 MG TAB IR PO ×2 (08:47→22:36)
--- NOTE | 2022-04-24 10:01 | PM.IMPN ---
Progress Note: A&P Assessment and Plan (1) Chest pain: Code(s): R07.9 - Chest pain, unspecified Status: Acute Assessment and Plan: suspect this is noncardiac in etiology, however, ECG is abnormal compared to previous and troponin was bumped, cardiology consult pending (2) Decubital ulcer: Code(s): L89.90 - Pressure ulcer of unspecified site, unspecified stage Status: Acute Assessment and Plan: appreciate wound care consultation CT abdomen and pelvis reviewed, no signs of osteomyelitis or further tunneling of decubital ulcers (3) Adult failure to thrive: Code(s): R62.7 - Adult failure to thrive Status: Acute Assessment and Plan: PT/OT, care coordination to arrange different rehab facility at discharge due to poor care at [facility], will consult dietition regarding nutritional supplementation (4) Type 2 diabetes mellitus with hyperglycemia, with long-term current use of insulin: Code(s): E11.65 - Type 2 diabetes mellitus with hyperglycemia; 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.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 Status: Acute Assessment and Plan: A1c actually improved from prior, restart long-acting insulin continue Accu-Cheks with sliding scale (5) Hypokalemia: Code(s): E87.6 - Hypokalemia Status: Acute Assessment and Plan: repeat potassium still pending this morning (6) Obstructive sleep apnea on CPAP: Code(s): G47.33 - Obstructive sleep apnea (adult) (pediatric); Z99.89 - Dependence on other enabling machines and devices Status: Acute Assessment and Plan: continue auto PAP (7) End-stage renal disease on hemodialysis: Code(s): N18.6 - End stage renal disease; Z99.2 - Dependence on renal dialysis Status: Acute Assessment and Plan: appreciate nephrology consultation, received dialysis yesterday (8) Closed right humeral fracture: Qualifiers: Encounter type: subsequent encounter Code(s): S42.301A - Unspecified fracture of shaft of humerus, right arm, initial encounter for closed fracture Status: Acute Assessment and Plan: continue supportive care with sling, Tylenol and oxycodone p.r.n. Plan DVT prophylaxis with Eliquis GI prophylaxis not indicated Code status full code Subjective Date/time seen: 04/24/22 10:01 Interval history: Patient still with intermittent chest tightness. No palpitations. Does not seem to be exertional or related to position nor p.o. intake. No overnight events noted. No shortness of breath. No nausea, vomiting or diarrhea. No fevers or chills. Review of Systems Review of Systems: 12 point review of systems was assessed and was negative except as noted in the HPI Exam Narrative: General: No acute distress, alert and oriented per baseline HEENT: Atraumatic, normocephalic, mucous membranes moist CV: Regular rate and rhythm, S1, S2 Lungs: Clear to auscultation bilaterally, no rales or crackles noted, no wheezes, good air entry Abdomen: Soft, nontender, nondistended Extremities: Some lymphedema noted, nonpitting Skin: Venous stasis dermatitis bilateral lower extremities Psych: Euthymic, normal affect Objective Data Vital Signs Vital Signs: Vital Signs - 24 hr 04/23/22 10:11 04/23/22 10:15 04/23/22 10:20 Temperature 97.8 F Pulse Rate 78 75 80 Respiratory Rate 18 Blood Pressure 170/83 H 168/87 H 160/84 H Pulse Oximetry Oxygen Delivery Fraction of Inspired Oxygen 04/23/22 10:40 04/23/22 11:00 04/23/22 11:20 Temperature Pulse Rate 74 84 83 Respiratory Rate Blood Pressure 156/87 H 166/87 H 143/80 H Pulse Oximetry Oxygen Delivery Fraction of Inspired Oxygen 04/23/22 11:40 04/23/22 12:00 04/23/22 12:20 Temperature Pulse Rate 87 88 96 Respiratory Rate Blood Pressure 152/89 H 135/81 153/96 H Pulse Oximetry Oxygen Delivery Fraction of Inspired Oxygen
--- NOTE | 2022-04-24 10:06 | ECG_ITS ---
Measurements Intervals [place] Rate: 73 P: 63 MO: 231 QRS: -58 QRSD: 113 T: 108 QT: 466 QTc: 516 Interpretive Statements SINUS RHYTHM WITH FIRST DEGREE AV BLOCK LEFT ANTERIOR FASCICULAR BLOCK ANTEROLATERAL MYOCARDIAL INFARCTION , OF INDETERMINATE AGE ABNORMAL ECG COMPARED TO ECG 04/22/2022 19:32:04 NO SIGNIFICANT CHANGES Electronically Signed On 04-24-2022 17:20:42 CDT by Shahriar Matias M.D.
--- NOTE | 2022-04-24 10:12 | PM.PNNEP ---
Progress Note: A&P Assessment and Plan (1) VALENCIA (acute kidney injury): Code(s): N17.9 - Acute kidney failure, unspecified Status: Acute Assessment and Plan: the patient has underlying chronic kidney disease. Is unclear what his baseline creatinine is. This is most likely due to diabetes and hypertension. Patient also has acute kidney injury. This may be related to infection or other events during the hospital stay at [facility]. His creatinine is not very high, however does not make much urine. Will keep an eye on this. He is not making very much urine but makes a little bit. Will check a bladder scan. If he has much urine in the bladder will place a Lenz and see if this helps. He is due for dialysis tomorrow. (2) Closed right humeral fracture: Qualifiers: Encounter type: subsequent encounter Code(s): S42.301A - Unspecified fracture of shaft of humerus, right arm, initial encounter for closed fracture Status: Acute Assessment and Plan: The patient's arm is in a sling. It is being managed conservatively because of his comorbidities. (3) Hypokalemia: Code(s): E87.6 - Hypokalemia Status: Acute Assessment and Plan: His potassium was low yesterday. He has chemistries pending for today Will order more for tomorrow and order his dialysis. (4) Type 2 diabetes mellitus with hyperglycemia, with long-term current use of insulin: Code(s): E11.65 - Type 2 diabetes mellitus with hyperglycemia; Z79.4 - custodial (current) use of insulin Status: Acute Assessment and Plan: On Accu-Cheks and sliding scale insulin per hospitalists. (5) Chest pain: Code(s): R07.9 - Chest pain, unspecified Status: Acute Assessment and Plan: Evaluation underway. (6) HTN (hypertension): Code(s): I10 - Essential (primary) hypertension Status: Acute Assessment and Plan: Blood pressure is running between 130 and 160. Will try stopping the Florinef. Leave midodrine on board for now and then may stop later if his blood pressure remains good. (7) Acute on chronic diastolic CHF (congestive heart failure): Code(s): I50.33 - Acute on chronic diastolic (congestive) heart failure Status: Acute Assessment and Plan: Chest x-ray is clear he does not have very much swelling. (8) Decubitus ulcer: Code(s): L89.90 - Pressure ulcer of unspecified site, unspecified stage Status: Acute Assessment and Plan: Local wound care Subjective Date/time seen: 04/24/22 10:12 Interval history: Carlton is feeling better today. He is off the BiPAP machine. He is breathing comfortably without oxygen. No more chest pain Review of Systems Cardiovascular: Cardiovascular: Reports no additional cardiovascular complaints Respiratory: Respiratory: Reports no additional respiratory complaints Gastrointestinal: Gastrointestinal: Reports no additional gastrointestinal complaints Genitourinary: Genitourinary: Reports no additional male genitourinary complaints Exam Narrative: WDWN in NAD skin no rash accepts chronic venous stasis dermatitis on hands and feet. head ncat lungs clear cor reg no rub abd BS+ nontender and soft ext no edema. Objective Data Vital Signs Vital Signs: Vital Signs - 24 hr 04/23/22 10:15 04/23/22 10:20 04/23/22 10:40 Temperature Pulse Rate 75 80 74 Respiratory Rate Blood Pressure 168/87 H 160/84 H 156/87 H Pulse Oximetry Oxygen Delivery Fraction of Inspired Oxygen 04/23/22 11:00 04/23/22 11:20 04/23/22 11:40 Temperature Pulse Rate 84 83 87 Respiratory Rate Blood Pressure 166/87 H 143/80 H 152/89 H Pulse Oximetry Oxygen Delivery Fraction of Inspired Oxygen 04/23/22 12:00 04/23/22 12:20 04/23/22 12:40 Temperature Pulse Rate 88 96 93 Respiratory Rate Blood Pressure 135/81 153/96 H 157/88 H Pulse Oxime
[2022-04-24 10:27] LABS: Alanine Aminotransferase 55 U/L (6-50); Albumin Level 3.5 g/dL (3.5-5.1); Alkaline Phosphatase 222 U/L (38-126); Anion Gap 13 mmol/L (8-16); Aspartate Amino Transferase 45 U/L (17-59); Bilirubin,Total 0.7 mg/dL (0.2-1.3); Blood Urea Nitrogen 21 mg/dL (9-20); Calcium 9.8 mg/dL (8.4-10.2); Carbon Dioxide 28 mmol/L (22-30); Chloride 112 mmol/L (98-107); Estimated CRCL calculation 33 ml/min; Estimated Glomerular Filt Rate 26; Glucose 264 mg/dL (65-110); Potassium 3.9 mmol/L (3.4-5.0); Sodium 153 mmol/L (137-145)
[2022-04-24 12:10] LABS: Glucose Point of Care 238 mg/dl (65-105)
--- NOTE | 2022-04-24 16:40 | PM.CNCAR ---
Assessment and Plan Assessment and plan (1) Chest pain: Code(s): R07.9 - Chest pain, unspecified Status: Acute Assessment and Plan: atypical, self-limited occurring at rest most likely musculoskeletal etiology. Patient has and extensive history of CAD and prior CABG. EKG unchanged without new acute ischemic changes. No further cardiac workup indicated at this time. Notify us should he have recurrence. 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 Disposition per hospitalist service. (2) Elevated troponin: Code(s): R77.8 - Other specified abnormalities of plasma proteins Status: Acute Assessment and Plan: Mild flat troponin elevation not consistent with acute coronary syndrome and/or plaque rupture. Elevation most likely secondary to end-stage renal disease on hemodialysis, underlying CAD. No acute ischemic changes on ECG. (3) CAD (coronary artery disease): Code(s): I25.10 - Atherosclerotic heart disease of [place] coronary artery without angina pectoris Status: Acute Assessment and Plan: Stable, continue medical therapy. Continue aspirin in addition to apixaban. Follow H& H. It patient does not appear to be on a statin therapy at this time. He was previously on atorvastatin 40 mg at bedtime. Resume unless contraindication from medical perspective. (4) Paroxysmal atrial fibrillation: Code(s): I48.0 - Paroxysmal atrial fibrillation Status: Acute Assessment and Plan: Maintaining sinus rhythm. Continue Eliquis. Monitor for bleeding. (5) End-stage renal disease on hemodialysis: Code(s): N18.6 - End stage renal disease; Z99.2 - Dependence on renal dialysis Status: Acute Assessment and Plan: Per nephrology. (6) Orthostatic hypertension: Code(s): I10 - Essential (primary) hypertension Status: Acute Assessment and Plan: Remains on midodrine and Florinef. He remains rather hypertensive but otherwise stable. Ambulate with caution. PT OT. History of Present Illness History of Present Illness Consult date/time: DATE OF SERVICE:04/24/22 16:40 Requesting physician: Anastacia Lebron DO Consult reason: chest pain Reason For Visit: Chest Pain Narrative: Patient is a complicated 66-year-old gentleman with past medical history significant for type 2 diabetes mellitus, hypertension, hyperlipidemia, CAD status post 5 vessel CABG, paroxysmal atrial fibrillation, obstructive sleep apnea, morbid obesity, end-stage renal disease on hemodialysis, history of prior stroke was had recently suffered a fall over his walker resulting in right arm fracture for which he was at [facility] when he complained of chest tightness. Patient states he was mildly but he never experienced this before not radiating located the left chest persisted off and on for approximately 2 hours. He then was brought to the emergency department. He has mild flat troponin elevation. Chest pain resolved spontaneously. Chest pain occurred while at rest watching television. He admits he had been pulling himself out of bed with his left arm and feels that he may have pulled his chest muscle resulting in this discomfort. He denied associated shortness of breath, palpitations, nausea, vomiting. He states he feels well with exception of generalized weakness and inability to walk. He has been severely debilitated and has essentially been bed-bound. He unfortunately developed a gluteal cleft decubitus ulcer. Since admission he has had no other complaints of chest pain shortness of breath. He has been maintaining sinus rhythm on telemetry. He has no other specific complaints at present. Wound Care has been consulted to manage his decubitus ulcer. CT abdomen pelvis was obtained without evidence of osteomyelitis. Serial troponin 0.047, 0.036, 0.033. Twelve lead EKG unchanged largely compared to prior tr
[2022-04-24 17:25] LABS: Glucose Point of Care 239 mg/dl (65-105)
[2022-04-24 20:43] LABS: Glucose Point of Care 268 mg/dl (65-105)
[2022-04-24] MEDS: BISACODYL 5 MG TABLET EC PO (21:12)
[2022-04-24] MEDS: INSULIN GLARGINE (*BKC) 100 UNITS/ML 27 UNITS SUB-Q (22:09)
[2022-04-25] VITALS (23 sets, daily range): BP systolic 111–168; BP diastolic 60–89; PULSE 74–101; RESP 2–20; TEMP 36–37; O2SAT 98–100
[2022-04-25 05:32] LABS: Alanine Aminotransferase 43 U/L (6-50); Albumin Level 2.7 g/dL (3.5-5.1); Alkaline Phosphatase 184 U/L (38-126); Anion Gap 4 mmol/L (8-16); Aspartate Amino Transferase 33 U/L (17-59); Basophils Percent Auto 0.2 % (0.2-1.2); Blood Urea Nitrogen 28 mg/dL (9-20); Calcium 7.9 mg/dL (8.4-10.2); Carbon Dioxide 31 mmol/L (22-30); Chloride 95 mmol/L (98-107); Eosinophils Percent Auto 0.2 % (0-4.4); Estimated CRCL calculation 33 ml/min; Estimated Glomerular Filt Rate 26; Glucose 270 mg/dL (65-110); Hematocrit 32.6 % (42.0-52.0); Hemoglobin 9.8 g/dL (14.0-18.0); Immature Granulocyte Absolute 0.13 K/mm3 (0.00-0.031); Immature Granulocyte Percent A 2.6 % (0-0.5); Lymphocytes Absolute Auto 0.74 K/mm3 (0.9-3.2); Lymphocytes Percent Auto 14.6 % (18.3-44.2); Mean Corpuscular HGB Conc 30.1 g/dl (32-36); Mean Corpuscular Hemoglobin 27.2 pg (26-34); Mean Corpuscular Volume 90.6 fl (80-100); Mean Platelet Volume 11.9 fl (7.4-10.4); Monocytes Absolute Auto 0.6 K/mm3 (0.1-0.6); Monocytes Percent Auto 12.6 % (2.6-8.5); Neutrophils Absolute Auto 3.5 K/mm3 (1.3-6.7); Neutrophils Percent Auto 69.8 % (45.5-73.1); Phosphorus 2.7 mg/dL (2.5-4.5); Platelet Count Result 103 k/mm3 (150-375); Potassium 3.4 mmol/L (3.4-5.0); Red Cell Distribution Width 20.9 % (11.5-14.5); Sodium 130 mmol/L (137-145); White Blood Count 5.1 K/mm3 (4.5-10.0)
[2022-04-25 08:43] LABS: Glucose Point of Care 268 mg/dl (65-105)
[2022-04-25] MEDS: INSULIN ASPART (*BKC) 100 UNITS/ML SUB-Q ×2 (08:44→13:05)
--- NOTE | 2022-04-25 09:27 | PCOTNOTE ---
Patient out of room for dialysis, will continue per OT plan of care.
[2022-04-25] MEDS: EPOETIN ALFA-EPBX 10,000 UNITS/ML VIAL 10000 UNITS IV PUSH (11:21)
[2022-04-25] MEDS: SODIUM CHLORIDE 0.9% IV 1,000 ML 999 ML IV CONT (11:21)
--- NOTE | 2022-04-25 11:36 | PCPTNOTE ---
The patient treatment was not able to be completed on 04/25/2022 due to patient out of room for dialysis. Will plan to continue treatment per plan of care.
--- NOTE | 2022-04-25 11:50 | PM.PNNEP ---
Progress Note: A&P Assessment and Plan (1) VALENCIA (acute kidney injury): Code(s): N17.9 - Acute kidney failure, unspecified Status: Acute Assessment and Plan: the patient has underlying chronic kidney disease. Is unclear what his baseline creatinine is. This is most likely due to diabetes and hypertension. Patient also has acute kidney injury. This may be related to infection or other events during the hospital stay at [facility]. His creatinine is not very high, however does not make much urine. he is going to be discharged today. His outpatient resin coater who will be following this. I suspect he has low muscle turn over leading to the lower creatinine in spite of not having very good kidney function. He is not making very much urine. Bladder scan showed a virtually empty bladder. He is doing well on dialysis (2) Closed right humeral fracture: Qualifiers: Encounter type: subsequent encounter Code(s): S42.301A - Unspecified fracture of shaft of humerus, right arm, initial encounter for closed fracture Status: Acute Assessment and Plan: The patient's arm is in a sling. It is being managed conservatively because of his comorbidities. (3) Hypokalemia: Code(s): E87.6 - Hypokalemia Status: Acute Assessment and Plan: His potassium was low yesterday. He has chemistries pending for today Will order more for tomorrow and order his dialysis. (4) Type 2 diabetes mellitus with hyperglycemia, with long-term current use of insulin: Code(s): E11.65 - Type 2 diabetes mellitus with hyperglycemia; Z79.4 - prison (current) use of insulin Status: Acute Assessment and Plan: On Accu-Cheks and sliding scale insulin per hospitalists. (5) Chest pain: Code(s): R07.9 - Chest pain, unspecified Status: Acute Assessment and Plan: cardiology feels that this is musculoskeletal. (6) HTN (hypertension): Code(s): I10 - Essential (primary) hypertension Status: Acute Assessment and Plan: Blood pressure is running between 130 and 160. Consider stopping midodrine in the future. (7) Acute on chronic diastolic CHF (congestive heart failure): Code(s): I50.33 - Acute on chronic diastolic (congestive) heart failure Status: Acute Assessment and Plan: Chest x-ray is clear he does not have very much swelling. (8) Decubitus ulcer: Code(s): L89.90 - Pressure ulcer of unspecified site, unspecified stage Status: Acute Assessment and Plan: Local wound care Subjective Date/time seen: 04/25/22 11:50am Interval history: Carlton is feeling better today. eager for discharge. He is on dialysis and tolerating it well. We are taking some fluid off. Exam Narrative: WDWN in NAD skin no rash accepts chronic venous stasis dermatitis on hands and feet. head ncat lungs clear Bilaterally cor reg no rub abd BS+ nontender and soft ext 1+ edema. Objective Data Vital Signs Vital Signs: Vital Signs - 24 hr 04/24/22 16:00 04/24/22 20:00 04/24/22 23:10 Temperature 36.2 C L Pulse Rate 77 79 79 Respiratory Rate 21 H Blood Pressure 147/61 H Pulse Oximetry 100 Oxygen Delivery 04/25/22 00:00 04/24/22 22:30 04/25/22 04:00 Temperature Pulse Rate 78 80 74 Respiratory Rate 20 Blood Pressure Pulse Oximetry 99 Oxygen Delivery Autopap 04/24/22 22:50 04/25/22 04:05 04/25/22 07:44 Temperature 36.2 C L Pulse Rate 78 74 74 Respiratory Rate 2 L Blood Pressure 143/74 H Pulse Oximetry 99 99 98 Oxygen Delivery Autopap Autopap 04/25/22 09:00 04/25/22 09:06 04/25/22 09:20 Temperature 36.8 C Pulse Rate 78 77 77 Respiratory Rate 20 Blood Pressure 153/75 H 168/71 H 131/75 Pulse Oximetry Oxygen Delivery 04/25/22 09:40 04/25/22 10:00 04/25/22 10:20 Temperature Pulse Rate 79 85 86 Respiratory Rate
--- NOTE | 2022-04-25 12:33 | PM.IMPN ---
Progress Note: A&P Assessment and Plan (1) Chest pain: Code(s): R07.9 - Chest pain, unspecified Status: Acute Assessment and Plan: suspect this is noncardiac in etiology, however, ECG is abnormal compared to previous and troponin was bumped, cardiology consult pending (2) Decubital ulcer: Code(s): L89.90 - Pressure ulcer of unspecified site, unspecified stage Status: Acute Assessment and Plan: appreciate wound care consultation will consult surgery CT abdomen and pelvis reviewed, no signs of osteomyelitis or further tunneling of decubital ulcers (3) Adult failure to thrive: Code(s): R62.7 - Adult failure to thrive Status: Acute Assessment and Plan: PT/OT, care coordination to arrange different rehab facility at discharge due to poor care at [facility], will consult dietition regarding nutritional supplementation (4) Type 2 diabetes mellitus with hyperglycemia, with long-term current use of insulin: Code(s): E11.65 - Type 2 diabetes mellitus with hyperglycemia; Z79.4 - halfway (current) use of insulin Status: Acute Assessment and Plan: A1c actually improved from prior, restart long-acting insulin continue Accu-Cheks with sliding scale (5) Hypokalemia: Code(s): E87.6 - Hypokalemia Status: Acute Assessment and Plan: repeat potassium still pending this morning (6) Obstructive sleep apnea on CPAP: Code(s): G47.33 - Obstructive sleep apnea (adult) (pediatric); Z99.89 - Dependence on other enabling machines and devices Status: Acute Assessment and Plan: continue auto PAP (7) End-stage renal disease on hemodialysis: Code(s): N18.6 - End stage renal disease; Z99.2 - Dependence on renal dialysis Status: Acute Assessment and Plan: appreciate nephrology consultation, received dialysis yesterday (8) Closed right humeral fracture: Qualifiers: Encounter type: subsequent encounter Code(s): S42.301A - Unspecified fracture of shaft of humerus, right arm, initial encounter for closed fracture Status: Acute Assessment and Plan: continue supportive care with sling, Tylenol and oxycodone p.r.n. Plan DVT prophylaxis with Eliquis GI prophylaxis not indicated Code status full code Subjective Date/time seen: 04/25/22 12:33 No new complaints Exam Narrative: General: No acute distress, alert and oriented per baseline HEENT: Atraumatic, normocephalic, mucous membranes moist CV: Regular rate and rhythm, S1, S2 Lungs: Clear to auscultation bilaterally, no rales or crackles noted, no wheezes, good air entry Abdomen: Soft, nontender, nondistended Extremities: Some lymphedema noted, nonpitting Skin: Venous stasis dermatitis bilateral lower extremities Psych: Euthymic, normal affect Objective Data Vital Signs Vital Signs: Vital Signs - 24 hr 04/24/22 14:00 04/24/22 16:00 04/24/22 20:00 Temperature 97.6 F Pulse Rate 81 77 79 Respiratory Rate 20 Blood Pressure 126/55 L Pulse Oximetry 99 Oxygen Delivery 04/24/22 23:10 04/25/22 00:00 04/24/22 22:30 Temperature 97.2 F L Pulse Rate 79 78 80 Respiratory Rate 21 H 20 Blood Pressure 147/61 H Pulse Oximetry 100 99 Oxygen Delivery Autopap 04/25/22 04:00 04/24/22 22:50 04/25/22 04:05 Temperature Pulse Rate 74 78 74 Respiratory Rate Blood Pressure Pulse Oximetry 99 99 Oxygen Delivery Autopap Autopap 04/25/22 07:44 04/25/22 09:00 04/25/22 09:06 Temperature 97.2 F L 98.2 F Pulse Rate 74 78 77 Respiratory Rate 2 L 20 Blood Pressure 143/74 H 153/75 H 168/71 H Pulse Oximetry 98 Oxygen Delivery 04/25/22 09:20 04/25/22 09:40 04/25/22 10:00 Temperature Pulse Rate 77 79 85 Respiratory Rate Blood Pressure 131/75 137/73 140/74 Pulse Oximetry Oxygen Delivery 04/25/22 10:20 04/25/22 10:40 04/25/22 11:00 Temperature
[2022-04-25] MEDS: APIXABAN 2.5 MG TABLET PO ×2 (12:57→16:56)
[2022-04-25] MEDS: SENNA/DOCUSATE SODIUM TABLET 2 TAB PO (12:57)
[2022-04-25] MEDS: ASCORBIC ACID 500 MG TABLET PO (12:57)
[2022-04-25] MEDS: CHOLECALCIFEROL 1,000 UNITS TABLET 1000 UNITS PO (12:57)
[2022-04-25] MEDS: ASPIRIN 81 MG ENTERIC TABLET PO (12:57)
[2022-04-25] MEDS: FINASTERIDE 5 MG TABLET PO (12:57)
[2022-04-25] MEDS: MIDODRINE HCL 2.5 MG TABLET PO ×2 (12:58→16:57)
[2022-04-25] MEDS: VITAMIN B CMPLX/VIT C/FOLIC AC 1 CAPSULE 1 CAP PO (12:58)
[2022-04-25] MEDS: TAMSULOSIN HCL 0.4 MG CAPSULE PO (12:58)
[2022-04-25] MEDS: oxyCODONE HCL (*CRX) 5 MG TAB IR PO ×2 (12:58→16:57)
[2022-04-25 12:59] LABS: Glucose Point of Care 209 mg/dl (65-105)
[2022-04-25] MEDS: COLLAGENASE OINT 30 GM TUBE 1 APPLIC TOPICAL (12:59)
[2022-04-25] MEDS: EUCERIN CREAM 120 GM JAR 1 APPLIC TOPICAL (12:59)
[2022-04-25] MEDS: TOLNAFTATE 1% POWDER 45 GM BTL 1 APPLIC TOPICAL ×2 (12:59→21:11)
--- NOTE | 2022-04-25 14:44 | PM.CNGS ---
Assessment and Plan Assessment and plan (1) Decubitus ulcer: Code(s): L89.90 - Pressure ulcer of unspecified site, unspecified stage Status: Acute Assessment and Plan: The patient has a stage III sacral decubitus ulcer that has been present for at least a month. This has been treated with Santyl dressing changes. There is no purulent drainage or evidence of any infection on exam. There was a small area of loose necrotic tissue that would benefit from excisional debridement at the bedside. I discussed the procedure, risks, benefits, and alternatives with the patient and he agreed to proceed. Following debridement, the wound bed appeared pink and healthy. Will switch to silver gel dressing changes daily for continued wound care at the intermediate. Recommended frequent turning and reducing pressure to this wound even after discharge. Okay from our standpoint to discharge the patient when okay with all other services. Thank you for allowing us to see the patient in consultation. (2) Chest pain: Code(s): R07.9 - Chest pain, unspecified Status: Acute Assessment and Plan: Cardiology evaluated the patient and felt this is musculoskeletal related. (3) Insulin dependent type 2 diabetes mellitus: Code(s): E11.9 - Type 2 diabetes mellitus without complications; Z79.4 - catheterization laboratory technician (current) use of insulin Status: Acute (4) Morbid obesity with BMI of 60.0-69.9, adult: Code(s): E66.01 - Morbid (severe) obesity due to excess calories; Z68.44 - Body mass index [BMI] 60.0-69.9, adult Status: Acute (5) Closed right humeral fracture: Qualifiers: Encounter type: subsequent encounter Code(s): S42.301A - Unspecified fracture of shaft of humerus, right arm, initial encounter for closed fracture Status: Acute (6) Acute renal failure superimposed on stage 3b chronic kidney disease: Qualifiers: Acute renal failure type: unspecified Qualified Code(s): N17.9 - Acute kidney failure, unspecified; N18.32 - Chronic kidney disease, stage 3b Code(s): N17.9 - Acute kidney failure, unspecified; N18.32 - Chronic kidney disease, stage 3b Status: Acute (7) CAD (coronary artery disease): Code(s): I25.10 - Atherosclerotic heart disease of [place] coronary artery without angina pectoris Status: Acute (8) Obstructive sleep apnea on CPAP: Code(s): G47.33 - Obstructive sleep apnea (adult) (pediatric); Z99.89 - Dependence on other enabling machines and devices Status: Acute (9) Paroxysmal atrial fibrillation: Code(s): I48.0 - Paroxysmal atrial fibrillation Status: Acute (10) HTN (hypertension): Code(s): I10 - Essential (primary) hypertension Status: Acute (11) Anticoagulant long-term use: Code(s): Z79.01 - catheterization laboratory technician (current) use of anticoagulants Status: Acute Assessment and Plan: Currently on Eliquis 2.5 mg BID for atrial fibrillation. Plan I have discussed the patient's case and plan of care with Dr. Whitlock. History of Present Illness Consult details Consult date: 04/25/22 Reason for consult: wound care (Sacral decubitus ulcer) Requesting physician: Alon Henriquez MD Narrative: This is a 66-year-old morbidly obese man with a history of insulin-dependent type 2 diabetes mellitus, paroxysmal atrial fibrillation on Eliquis, obstructive sleep apnea, chronic kidney disease, and hypertension. He recently fractured his right arm after sustaining a fall, reportedly over a month ago. He was admitted to an outside hospital and his fracture was treated conservatively. During the hospital stay, he was found to have a sacral wound. That was the first he knew about his wound. He does admit to being fairly sedentary even prior to that hospitalization. Also during his hospitalization, his chronic kidney disease worsened and he was placed on hemodialysis through a right femoral dialysis catheter. He was
--- NOTE | 2022-04-25 15:23 | PCPTNOTE ---
Attempted to see patient for PT at this time, however patient refused. Patient reported he has not been feeling good this date.
--- NOTE | 2022-04-25 15:34 | P.OP_ITS ---
Procedure Note - Detailed Date of Procedure 04/25/22 Pre-op Diagnosis Stage III sacral decubitus ulcer Post-op Diagnosis Same Procedure Performed Excisional debridement of sacral decubitus ulcer including skin and subcutaneous tissue, measuring 2 cm x 1 cm x 1 cm Surgeon Mireya Kaplan, INESSA Concierge Osiris, digital photographic printer Anesthesia None Indications Stage III sacral decubitus ulcer with necrotic tissue Findings Some loose necrotic tissue was debrided from the deepest area of the sacral wound. After debridement, the entire wound bed appeared pink, firm, and healthy. Description of Procedure The patient was placed in the right lateral position in the hospital bed. Following this, the wound was prepped and cleaned with chlorhexidine. I then used scissors and pickups and debrided the necrotic tissue in the cephalad portion of the wound at the cleft. This area measured 2 x 1 x 1 cm. I carried down debridement into the subcutaneous tissues. Following this, I re-examined the wound. There was no bleeding or remaining necrotic tissue. The entire wound bed appeared healthy with granulation tissue in the more superficial aspects of the wound. I then applied Santyl with gauze and an ABD pad with tape. Will place orders to change to silver gel. He tolerated the procedure well. Estimated Blood Loss 0 Urine Output 50 Drains No Packing No Pathology None sent Complications No immediate complications Condition Stable Disposition No change [facility] Billing Surgery - Charge Forward: Surgery Billing
[2022-04-25] MEDS: ONDANSETRON INJ 4 MG/2 ML VIAL IV PUSH (16:57)
[2022-04-25 17:48] LABS: Glucose Point of Care 193 mg/dl (65-105)
[2022-04-25 20:36] LABS: Glucose Point of Care 200 mg/dl (65-105)
[2022-04-25] MEDS: BISACODYL 5 MG TABLET EC PO (21:10)
[2022-04-25] MEDS: INSULIN GLARGINE (*BKC) 100 UNITS/ML 27 UNITS SUB-Q (21:11)
[2022-04-26] VITALS (8 sets, daily range): BP systolic 142–156; BP diastolic 58–73; PULSE 70–97; RESP 12–18; TEMP 35.9–36.4; O2SAT 97–98
[2022-04-26] MEDS: oxyCODONE HCL (*CRX) 5 MG TAB IR PO ×2 (00:18→10:50)
[2022-04-26 05:13] LABS: Basophils Percent Auto 0.4 % (0.2-1.2); Eosinophils Percent Auto 0.2 % (0-4.4); Hematocrit 33.5 % (42.0-52.0); Hemoglobin 10.2 g/dL (14.0-18.0); Immature Granulocyte Absolute 0.18 K/mm3 (0.00-0.031); Immature Granulocyte Percent A 3.2 % (0-0.5); Lymphocytes Absolute Auto 0.69 K/mm3 (0.9-3.2); Lymphocytes Percent Auto 12.3 % (18.3-44.2); Mean Corpuscular HGB Conc 30.4 g/dl (32-36); Mean Corpuscular Hemoglobin 27.1 pg (26-34); Mean Corpuscular Volume 88.9 fl (80-100); Mean Platelet Volume 12.2 fl (7.4-10.4); Monocytes Absolute Auto 0.6 K/mm3 (0.1-0.6); Monocytes Percent Auto 10.5 % (2.6-8.5); Neutrophils Absolute Auto 4.1 K/mm3 (1.3-6.7); Neutrophils Percent Auto 73.4 % (45.5-73.1); Platelet Count Result 103 k/mm3 (150-375); Red Blood Count 3.77 M/mm3 (4.6-6.20); Red Cell Distribution Width 20.8 % (11.5-14.5); White Blood Count 5.6 K/mm3 (4.5-10.0)
[2022-04-26 05:44] LABS: Alanine Aminotransferase 46 U/L (6-50); Albumin Level 2.9 g/dL (3.5-5.1); Alkaline Phosphatase 184 U/L (38-126); Anion Gap 9 mmol/L (8-16); Aspartate Amino Transferase 36 U/L (17-59); Bilirubin,Total 1.2 mg/dL (0.2-1.3); Blood Urea Nitrogen 18 mg/dL (9-20); Carbon Dioxide 32 mmol/L (22-30); Chloride 92 mmol/L (98-107); Estimated CRCL calculation 35 ml/min; Estimated Glomerular Filt Rate 27; Glucose 187 mg/dL (65-110); Potassium 3.4 mmol/L (3.4-5.0); Sodium 133 mmol/L (137-145)
[2022-04-26 08:44] LABS: Glucose Point of Care 184 mg/dl (65-105)
[2022-04-26] MEDS: SILVERGEL (ELTA) 45 ML 1 APPLIC TOPICAL (09:11)
[2022-04-26] MEDS: SENNA/DOCUSATE SODIUM TABLET 2 TAB PO (09:11)
[2022-04-26] MEDS: TAMSULOSIN HCL 0.4 MG CAPSULE PO (09:11)
[2022-04-26] MEDS: CHOLECALCIFEROL 1,000 UNITS TABLET 1000 UNITS PO (09:11)
[2022-04-26] MEDS: VITAMIN B CMPLX/VIT C/FOLIC AC 1 CAPSULE 1 CAP PO (09:11)
[2022-04-26] MEDS: APIXABAN 2.5 MG TABLET PO ×2 (09:11→18:21)
[2022-04-26] MEDS: FINASTERIDE 5 MG TABLET PO (09:11)
[2022-04-26] MEDS: ASCORBIC ACID 500 MG TABLET PO (09:11)
[2022-04-26] MEDS: ASPIRIN 81 MG ENTERIC TABLET PO (09:12)
[2022-04-26] MEDS: MIDODRINE HCL 2.5 MG TABLET PO ×3 (09:12→18:21)
[2022-04-26] MEDS: TOLNAFTATE 1% POWDER 45 GM BTL 1 APPLIC TOPICAL (09:12)
[2022-04-26] MEDS: EUCERIN CREAM 120 GM JAR 1 APPLIC TOPICAL (09:12)
[2022-04-26 12:35] LABS: Glucose Point of Care 280 mg/dl (65-105)
[2022-04-26] MEDS: INSULIN ASPART (*BKC) 100 UNITS/ML SUB-Q ×2 (12:42→18:20)
--- NOTE | 2022-04-26 13:02 | PM.DS ---
DS: Admitting Diagnosis Discharge Date 04/26/22 Admitting Diagnosis sacral decub, cp DS: Discharge Diagnosis Discharge Diagnosis (1) Chest pain: Code(s): R07.9 - Chest pain, unspecified Status: Acute Assessment and Plan: suspect this is noncardiac in etiology, however, ECG is abnormal compared to previous and troponin was bumped, cardiology consult pending (2) Decubital ulcer: Code(s): L89.90 - Pressure ulcer of unspecified site, unspecified stage Status: Acute Assessment and Plan: appreciate wound care consultation will consult surgery CT abdomen and pelvis reviewed, no signs of osteomyelitis or further tunneling of decubital ulcers (3) Adult failure to thrive: Code(s): R62.7 - Adult failure to thrive Status: Acute Assessment and Plan: PT/OT, care coordination to arrange different rehab facility at discharge due to poor care at [facility], will consult dietition regarding nutritional supplementation (4) Type 2 diabetes mellitus with hyperglycemia, with long-term current use of insulin: Code(s): E11.65 - Type 2 diabetes mellitus with hyperglycemia; Z79.4 - senior care (current) use of insulin Status: Acute Assessment and Plan: A1c actually improved from prior, restart long-acting insulin continue Accu-Cheks with sliding scale (5) Hypokalemia: Code(s): E87.6 - Hypokalemia Status: Acute Assessment and Plan: repeat potassium still pending this morning (6) Obstructive sleep apnea on CPAP: Code(s): G47.33 - Obstructive sleep apnea (adult) (pediatric); Z99.89 - Dependence on other enabling machines and devices Status: Acute Assessment and Plan: continue auto PAP (7) End-stage renal disease on hemodialysis: Code(s): N18.6 - End stage renal disease; Z99.2 - Dependence on renal dialysis Status: Acute Assessment and Plan: appreciate nephrology consultation, received dialysis yesterday (8) Closed right humeral fracture: Qualifiers: Encounter type: subsequent encounter Code(s): S42.301A - Unspecified fracture of shaft of humerus, right arm, initial encounter for closed fracture Status: Acute Assessment and Plan: continue supportive care with sling, Tylenol and oxycodone p.r.n. Plan DVT prophylaxis with Eliquis GI prophylaxis not indicated Code status full code DS: Summary Hospital Course Hospital Course: Patient admitted for cp - plascencia unrevealing, no further plascencia needed at this time Patient will need snf placement for ongoing pt/ot and now wound care needs. SAcral decub sp debridement per surgery - continue wound care at facility Time Spent with Patient Time attestation: Total time spent providing and/or coordinating discharge services: Exam Narrative: General: No acute distress, alert and oriented per baseline HEENT: Atraumatic, normocephalic, mucous membranes moist CV: Regular rate and rhythm, S1, S2 Lungs: Clear to auscultation bilaterally, no rales or crackles noted, no wheezes, good air entry Abdomen: Soft, nontender, nondistended Extremities: Some lymphedema noted, nonpitting Skin: Venous stasis dermatitis bilateral lower extremities Psych: Euthymic, normal affect DS: Data Data Completed and Pending Labs on day of discharge: Labs from last 24 hours 04/26/22 04/26/22 04/26/22 12:31 08:37 04:23 WBC RBC Hgb Hct MCV MCH MCHC RDW Plt Count MPV Immature Gran % (Auto) Neut % (Auto) Lymph % (Auto) [place] % (Auto) Eos % (Auto) Baso % (Auto) Lymph # (Auto) [place] # (Auto) Eos # (Auto) Baso # (Auto) Abs Immat Gran (auto) Absolute Neuts (auto) Absolute Nucleated RBC Nucleated RBC % Sodium 133 L Potassium 3.4 Chloride 92 L Carbon Dioxide 32 H Anion Gap 9 BUN 18 D Creatinine 2.40 H Estim Creat Clear Calc 35 Kristen
--- NOTE | 2022-04-26 14:13 | PM.PNNEP ---
Progress Note: A&P Assessment and Plan (1) VALENCIA (acute kidney injury): Code(s): N17.9 - Acute kidney failure, unspecified Status: Acute Assessment and Plan: the patient has underlying chronic kidney disease. Is unclear what his baseline creatinine is. This is most likely due to diabetes and hypertension. Patient also has acute kidney injury. This may be related to infection or other events during the hospital stay at [place]. His creatinine is not very high, however does not make much urine. he is going to be discharged today. he is going to [facility]. I can take care of him there until he goes back to Dr. Brandon at [facility]. (2) Closed right humeral fracture: Qualifiers: Encounter type: subsequent encounter Code(s): S42.301A - Unspecified fracture of shaft of humerus, right arm, initial encounter for closed fracture Status: Acute Assessment and Plan: The patient's arm is in a sling. It is being managed conservatively because of his comorbidities. (3) Hypokalemia: Code(s): E87.6 - Hypokalemia Status: Acute Assessment and Plan: Potassium is fine today. (4) Type 2 diabetes mellitus with hyperglycemia, with long-term current use of insulin: Code(s): E11.65 - Type 2 diabetes mellitus with hyperglycemia; Z79.4 - correction (current) use of insulin Status: Acute Assessment and Plan: On Accu-Cheks and sliding scale insulin per hospitalists. (5) Chest pain: Code(s): R07.9 - Chest pain, unspecified Status: Acute Assessment and Plan: cardiology feels that this is musculoskeletal. (6) HTN (hypertension): Code(s): I10 - Essential (primary) hypertension Status: Acute Assessment and Plan: Blood pressure is running between 130 and 160. Consider stopping midodrine in the future. (7) Acute on chronic diastolic CHF (congestive heart failure): Code(s): I50.33 - Acute on chronic diastolic (congestive) heart failure Status: Acute Assessment and Plan: Chest x-ray is clear he does not have very much swelling. (8) Decubitus ulcer: Code(s): L89.90 - Pressure ulcer of unspecified site, unspecified stage Status: Acute Assessment and Plan: Local wound care Subjective Date/time seen: 04/26/22 14:13 Interval history: Carlton is feeling better today. he had a debridement yesterday. He is eager to go to [facility]. Exam Narrative: WDWN in NAD skin no rash accepts chronic venous stasis dermatitis on hands and feet. head ncat lungs clear to auscultation cor reg no rub abd BS+ nontender and soft ext 1+ edema and no cyanosis. Objective Data Vital Signs Vital Signs: Vital Signs - 24 hr 04/25/22 15:00 04/25/22 16:00 04/25/22 20:00 Temperature 36.0 C L Pulse Rate 92 84 82 Respiratory Rate 18 Blood Pressure 148/71 H Pulse Oximetry 98 Oxygen Delivery Fraction of Inspired Oxygen 04/25/22 20:57 04/26/22 00:00 04/26/22 04:00 Temperature 36.4 C Pulse Rate 85 81 75 Respiratory Rate 16 Blood Pressure 133/60 Pulse Oximetry 100 Oxygen Delivery Fraction of Inspired Oxygen 04/26/22 05:43 04/25/22 20:35 04/26/22 01:00 Temperature 36.4 C Pulse Rate 82 85 79 Respiratory Rate 12 Blood Pressure 142/58 H Pulse Oximetry 97 99 98 Oxygen Delivery Autopap Autopap Fraction of Inspired Oxygen 04/26/22 04:20 04/26/22 08:14 04/26/22 08:14 Temperature Pulse Rate 74 70 Respiratory Rate Blood Pressure Pulse Oximetry 98 97 97 Oxygen Delivery Autopap Autopap Autopap Fraction of Inspired Oxygen 21 Intake/Output Intake/Output: Intake & Output 04/23/22 04/24/22 04/25/22 04/26/22 23:59 23:59 23:59 23:59 Intake Total 862 1312 1272 1012 Output Total 3300 100 3500 Balance -1424 1212 -9964 1012 Meds/Results Medications: Active Medications Ge
[2022-04-26 14:14] LABS: EDCOVIDSCREEN Negative (Negative)
[2022-04-26] MEDS: ONDANSETRON INJ 4 MG/2 ML VIAL IV PUSH (15:15)
[2022-04-26 17:50] LABS: Glucose Point of Care 283 mg/dl (65-105)
== END 2022-04-26 20:10 ==
LOC: ANHED 04-23 00:57 → ANH2MED 04-23 02:07
PROVIDERS: Internal Medicine Nephrology; Student in an Organized Health Care Education/Training Program; Admitting Provider Internal Medicine; Emergency Provider Emergency Medicine; PCP Internal Medicine; Visit Provider Chiropractor
DX: R07.9 Chest pain, unspecified (principal); L89.153 Pressure ulcer of sacral region, stage 3; E78.5 Hyperlipidemia, unspecified; I25.10 Atherosclerotic heart disease of native coronary artery without angina pectoris; Z95.1 Presence of aortocoronary bypass graft; G47.33 Obstructive sleep apnea (adult) (pediatric); Z99.89 Dependence on other enabling machines and devices; I48.0 Paroxysmal atrial fibrillation; I13.2 Hypertensive heart and chronic kidney disease with heart failure and with stage 5 chronic kidney disease, or end stage renal disease; E11.22 Type 2 diabetes mellitus with diabetic chronic kidney disease; N18.6 End stage renal disease; I50.33 Acute on chronic diastolic (congestive) heart failure; Z99.2 Dependence on renal dialysis; D63.1 Anemia in chronic kidney disease; E87.6 Hypokalemia; R77.8 Other specified abnormalities of plasma proteins; N40.0 Benign prostatic hyperplasia without lower urinary tract symptoms; E11.40 Type 2 diabetes mellitus with diabetic neuropathy, unspecified; I87.8 Other specified disorders of veins; I89.0 Lymphedema, not elsewhere classified; Z98.84 Bariatric surgery status; R07.89 Other chest pain; Z86.73 Personal history of transient ischemic attack (TIA), and cerebral infarction without residual deficits; E66.01 Morbid (severe) obesity due to excess calories; Z68.44 Body mass index [BMI] 60.0-69.9, adult; E11.65 Type 2 diabetes mellitus with hyperglycemia; S42.301A Unspecified fracture of shaft of humerus, right arm, initial encounter for closed fracture; N17.9 Acute kidney failure, unspecified; K42.9 Umbilical hernia without obstruction or gangrene; R62.7 Adult failure to thrive; R94.31 Abnormal electrocardiogram [ECG] [EKG]; Z20.822 Contact with and (suspected) exposure to COVID-19; Z79.4 Long term (current) use of insulin; Z79.82 Long term (current) use of aspirin; Z79.01 Long term (current) use of anticoagulants; Z79.52 Long term (current) use of systemic steroids; Z79.891 Long term (current) use of opiate analgesic; Z79.899 Other long term (current) drug therapy; Z82.49 Family history of ischemic heart disease and other diseases of the circulatory system; Z83.3 Family history of diabetes mellitus
CPT/HCPCS: 11042; 36415; 71045; 74176; 80048; 80053; 80069; 82948; 83036; 83690; 83880; 84484; 85025; 85027; 85055; 85610; 85730; 86706; 87040; 87340; 87426; 93005; 96374; 96375; 96376; 97110; 97162; 97166; 97530; 97535; 99285; A9270; C9803; G0257; G0378; J1644; J1815; J2405; J7030; Q5105